=== PATIENT | male | born 1960 | race Caucasian/White ===

== ENCOUNTER 2017-05-14 09:02 | Inpatient (IN) ==
[2017-05-14] MEDS ORDERED: DILTIAZEM 50 MG/10 ML VIAL IV STA (09:30)
[2017-05-14] MEDS ORDERED: DILTIAZEM 50 MG/10 ML VIAL IV ONE (09:45)
[2017-05-14] MEDS ORDERED: DILTIAZEM 100 MG VIAL.ADD IV ONE (09:45)
[2017-05-14] MEDS ORDERED: SODIUM CHLORIDE 0.9% 100 ML IV ONE (09:47)
[2017-05-14] MEDS: DILTIAZEM INJ 100 MG in SODIUM CHLORIDE 0.9% 100 ML IV SCH (09:52)
[2017-05-14 09:57] LABS: Basophils # 0.1 10*3/uL (0.0-0.2); Basophils % 0.7 % (0.0-0.8); Eosinophils # 0.1 10*3/uL (0.0-0.87); Eosinophils % 0.8 % (0.00-10.9); Hematocrit 44.1 VOL% (42.0-52.0); Hemoglobin 15.7 GM/DL (14.0-18.0); Immature Granulocytes % 0.7 %; Immature Granulocytes Absolute 0.08 #; Lymphocytes # 1.2 10*3/uL (1.4-4.0); Mean Corpuscular HGB Conc 35.6 GM/DL (32-36); Mean Corpuscular Hemoglobin 33 PG (27-34); Mean Corpuscular Volume 91.7 FL (87-102); Mean Platelet Volume 10.6 FL (9.6-12.0); Monocytes # 0.9 10*3/uL (0.11-0.8); Monocytes % 7.6 % (1.7-12.7); Neutrophils # 9.3 10*3/uL (1.4-7.4); Neutrophils % 80.2 % (38.7-73.9); Platelet Count 222 T/CUMM (130-400); Red Blood Count 4.81 MC/CUMM (3.8-5.5); Red Cell Distribution Width 12.8 % (9.3-17.3); White Blood Count 11.6 T/CUMM (4-12)
[2017-05-14 10:10] LABS: INR 1.1; PT Patient Result 11.9 SECS; Partial Thromboplastin Time 29.2 SECS (0-40)
[2017-05-14 10:16] LABS: Alanine Aminotransferase 92 U/L (16-61); Albumin 3.7 G/DL (3.4-5.0); Alkaline Phosphatase 83 U/L (45-117); Aspartate Amino Transferase 55 U/L (0-37); Blood Urea Nitrogen 21 MG/DL (7-18); Calcium 8.9 MG/DL (8.5-10.1); Glucose 299 MG/DL (74-106); Osmolality,Calculated 275.7 MOS/KG (273-304); Potassium 4.2 MMOL/L (3.5-5.1); Sodium 131 MMOL/L (136-145); Troponin I Only < 0.015 NG/ML (0.00-0.045)
[2017-05-14 10:22] LABS: Free T4 (Free Thyroxine) 1.49 NG/DL (0.76-1.46); Thyroid Stimulating Hormone 1.31 uIU/ml (0.358-3.74)
--- NOTE | 2017-05-14 10:26 | XRay Report ---
XR chest 1V portable Indication: Shortness of breath Comparison: 16 October 2016 Findings: The heart and mediastinum are normal in size and configuration. The pulmonary vascularity is normal in caliber. No lung infiltrates, effusions, pneumothorax or other abnormality is demonstrated. Impression: No acute cardiopulmonary disease. PROCEDURE INTERPRETED AT [facility] DEPARTMENT OF RADIOLOGY Final Report Signed by: Dr. Florentin Vázquez
--- NOTE | 2017-05-14 10:26 | Order Completion Report ---
See report scanned to EMR
--- NOTE | 2017-05-14 11:04 | Emergency Department Note ---
Pantera Hernandez Gwan, am scribing for, and in the presence of, Wade Graves MD 09 :31. Star Hernandez Doug C, MD, personally performed the services described in this documentation, ascribed by Monique Mott in my presence, and it is both accurate and complete . Arrival - Arrival Chief Complaint: Shortness of Breath Stated Complaint: sob,chest pains, left leg swollen ED Nursing Triage Note: PT C/O SHORTNESS OF BREATH, CHEST HEAVINESS, AND EDEMA TO LEFT LEG SINCE YESTERDAY. PT STATES IF HE LIES DOWN IT FEELS LIKE SOMEONE IS SITTING ON HIS CHEST. Mode of Arrival: Ambulatory Limitations: No Limitations Source: Patient, Old Records Reviewed, RN Notes Reviewed Time Seen by Provider: 05/14/17 09:28 - History of Present Illness HPI Narrative: Patient is 57-year-old white male who comes to the emergency room with complaint of shortness of breath that started around 7 AM yesterday morning. Patient denies any chest pain with this but states he has had some swelling of his lower extremities. He tells me it seems that his shortness of breath is worse when he lied down and got better when he stood up and walked about. Patient states he had a little bit of pain at the onset of this but it subsided very quickly. Patient states she has noted swelling the lower extremities with has been increasing for the last 6 months. He does have a history of hypertension and diabetes but is never had any heart problems. Denies any neck , shoulder or arm discomfort with this. He denies any fever, chills or increased cough. Onset (ago): day(s) Consistency: constant Severity: moderate Allergies/Adverse Reactions: Allergies Allergy/AdvReac Type Severity Reaction Status Date / Time No Known Allergies Allergy Verified 05/14/17 09:15 Home Medications: Home Medications Medication Instructions Recorded Confirmed Type No Known Home Medications [No 05/14/17 05/14/17 History Known Home Medications] Review of System - Review of System 12 point system: reviewed and no additional remarkable complaints except as stated - Review of System Eyes: Absent: pain, other Head/Ears/Nose/Throat: Absent: earache, nasal drainage Respiratory: Present: other (shortness of breathe ). Absent: cough, wheezing Cardiovascular: Present: chest pain, palpitations Medical,Surgical,& Family Hx - Medical History Cardio: History of: Hypertension Endocrine: History of: Diabetes Mellitus (NIDDM) Renal: No history of: Renal Problems Gastrointestinal: No history of: Gastrointestinal Bleed, Liver Problems, Ulcerative Colitis, GI Problems - Surgical History Cardiac Surgeries: Sugical HX of: Cardiac Catheterization (negative heart cath) Abdominal Surgeries: Surgical HX of: Appendectomy - Family History Family History: Reports;: Family Diabetes (His brother) Denies;: Family Heart Disease - Social History Smoking Status: Never smoker Frequency of Alcohol Use: Occasionally Type of Drug Use: None Exam Vital Signs: Vital Signs Temperature 97.4 F L 05/14/17 09:13 Pulse Rate 153 H 05/14/17 09:13 Respiratory Rate 20 05/14/17 09:13 Blood Pressure 172/119 05/14/17 09:13 O2 Sat by Pulse Oximetry 96 05/14/17 09:13 - General General appearance: alert, in no apparent distress - Head Head exam: Present: atraumatic, normocephalic - Eye Eye exam: Present: normal appearance, PERRL, EOMI - ENT ENT exam: Present: normal oropharynx, mucous membranes moist, TM's normal bilaterally, normal external ear exam - Neck Neck exam: Present: normal inspection, full ROM, trachea midline. Absent: tenderness, thyromegaly - Chest Chest inspection: Present: normal inspection, symmetric chest wall rise. Absent : tenderness - Respiratory Respiratory exam: Present: normal lung sounds bilaterally. Absent: rales, respiratory distress - Cardiovascular Cardiovascular exam: Present: normal rhythm, tachycardia, normal heart sounds. Absent: murmur - Abdominal Exam Abdominal exam: Present: soft, normal bowel sounds. Absent: tenderness - Extremities Exam Extremities exam: Present: normal inspection, full ROM, pedal edema (2+). Absent: tenderness - Back Exam Back exam: Present: full ROM. Absent: tenderness - Neurological Exam Neurological exam: Present: alert, oriented X3, CN II-XII intact. Absent: motor sensory deficit - Psychiatric Psychiatric exam: Present: normal affect, normal mood - Skin Skin exam: Present: warm, dry, intact, normal color Course Course Narrative: Patient's clinical presentation, laboratory and electrocardiographic findings were discussed with Yusuf who is covering the hospitalist service. He will evaluate the patient here in the emergency room and evaluate for admission. Results - Labs CBC & BMP: 05/14/17 09:40 09/30/17 09:40 Lab Results: I have reviewed the patients labs Labs: Laboratory Tests 05/14/17 09:40 WBC 11.6 RBC 4.81 Hgb 15.7 Hct 44.1 Plt Count 222 Neut % (Auto) 80.2 H Lymph % (Auto) 10.0 L Neut # (Auto) 9.3 H Lymph # (Auto) 1.2 L Craig # (Auto) 0.9 H Laboratory Tests 05/14/17 09:29 INR 1.1 PT Patient/Control Mix 11.9 Circ Anticoag PTT 29.2 Laboratory Tests 05/14/17 09:40 Sodium 131 L Potassium 4.2 Chloride 97 L Carbon Dioxide 25 BUN 21 H Creatinine 1.00 BUN/Creatinine Ratio 21.00 H Glucose 299 H Total Bilirubin 1.20 H AST 55 H ALT 92 H Globulin 4.3 H Albumin/Globulin Ratio 0.8 L Laboratory Tests 05/14/17 09:40 Free T4 1.49 H TSH 3rd Generation 1.310 Laboratory Tests 05/14/17 09:40 D-Dimer, Quantitative 0.8 Laboratory Tests 05/14/17 09:40 B-Natriuretic Peptide 166 H - EKG EKG results: interpreted by ERMD EKG shows: tachycardia (Patient with atrial flutter in 2-1 conduction with a heart rate of 150 bpm.) - Diagnostic Findings Procedure: Chest x-ray: report reviewed by me (No acute cardiopulmonary disease. ) Disposition Clinical Impression: Atrial flutter Case discussed with: patient Disposition: Disch To Home/Self Care Condition: Stable Time of Disposition: 11:04
[2017-05-14] MEDS ORDERED: DEXTROSE 50% 25 GM/50 ML SYRINGE IV PRN (11:22)
[2017-05-14] MEDS ORDERED: DOCUSATE SODIUM 100 MG CAPSULE PO PRN (11:22)
[2017-05-14] MEDS ORDERED: GLUCAGON 1 MG VIAL IM PRN (11:22)
[2017-05-14] MEDS ORDERED: ONDANSETRON 4 MG/2 ML VIAL IV PRN (11:22)
[2017-05-14] MEDS ORDERED: ACETAMINOPHEN 325 MG TABLET PO PRN (11:22)
[2017-05-14] MEDS ORDERED: LABETALOL 20 MG/4 ML SYRINGE IV ONE ×2 (11:22→13:15)
[2017-05-14] MEDS ORDERED: SODIUM CHLORIDE 0.9% 1,000 ML IV SCH (11:30)
--- NOTE | 2017-05-14 11:50 | Hospitalist History & Physical ---
<Yusuf Weaver - Last Filed: 05/14/17 11:34> Assessment and Plan - Time spent with patient Time spent with patient: Greater than 30 minutes (1) Atrial flutter with RVR Status: Acute Assessment and plan: IV Cardizem started in ED. Continue Cardizem. Add metoprolol. Echocardiogram. Admit to CCU. Consult cardiology. Current Visit: Yes (2) Hypertension Status: Acute Assessment and plan: Poorly controlled. Metoprolol 25 mg BID and Spironolactone 25 mg BID. Labetatol 10 once. Current Visit: Yes (3) Diabetes mellitus Status: Acute Assessment and plan: Hemoglobin A1c. Accu-cheks ACHS. SSI per protocol. Current Visit: Yes History of Present Illness Chief complaint: shortness of breath History of present illness: Mr. Cota is a 57 year old white male with a past medical history significant for hypertension and diabetes who presented to the ED today with complaints of shortness of breath since yesterday. The patient reports the dyspnea is worse when lying down and on exertion. He also reports a mildly distended abdomen with intermittent lower extremity edema having onset 2 days ago. He tells me that his dyspnea and edema gets better with movement. On exam, the patient is resting comfortably and in no acute medical distress. He was found to be in atrial flutter with RVR per telemetry. He was given 15 mg of IV Cardizem in the ED and is currently on a Cardizem drip. Rate is better but still tachycardic at 110-120. Patient denies headache, chest pain, abdominal tenderness, nausea/ vomiting, diaphoresis, numbness or tingling. He further denies a history of cardiomyopathy but confirms a previous [facility] without intervention. He reports no PCP. Lab work is significant for: sodium 131, potassium 4.2, chloride 97, BUN 21, creatinine 1.00, serum glucose 299, AST 55, ALT 92, BNP 166. CXR shows mild pulm edema or failure. This case has been discussed with both Dr. Choi, ER physician, and Dr. Smith, admitting physician, and the patient will be admitted to the hospital medicine service for further evaluation and treatment. 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 Home medications will be reviewed and reconciled once available. Home Medications Medication Instructions Recorded Confirmed Type No Known Home Medications [No 05/14/17 05/14/17 History Known Home Medications] Allergies Allergy/AdvReac Type Severity Reaction Status Date / Time No Known Allergies Allergy Verified 05/14/17 09:15 Medical,Surgical,& Family Hx - Medical History Cardio: History of: Hypertension Endocrine: History of: Diabetes Mellitus (NIDDM) Renal: No history of: Renal Problems Gastrointestinal: No history of: Gastrointestinal Bleed, Liver Problems, Ulcerative Colitis, GI Problems - Surgical History Cardiac Surgeries: Sugical HX of: Cardiac Catheterization (negative heart cath) Abdominal Surgeries: Surgical HX of: Appendectomy - Family History Family History: Reports;: Family Diabetes (His brother) Denies;: Family Heart Disease - Social History Smoking Status: Never smoker Frequency of Alcohol Use: Occasionally Type of Drug Use: None Marital Status: Lives With:: Alone Functional capacity: independent ambulation 12 point system: reviewed and no additional remarkable complaints except as stated Exam - Constitutional Vitals: Period Temp Pulse Resp BP Sys/Sanches Pulse Ox Last 24 Hr 97.4 F-97.4 F 111-153 15-21 125-172/91-122 94-99 Exam: General appearance: obese, no acute distress - Head Head exam: Present: normocephalic, atraumatic - Eye Eye exam: Present: EOMI. Absent: conjunctival injection, nystagmus Pupils: Present: GAGE, normal accommodation - ENT ENT exam: Present: normal exam, normal external ear exam - Neck Neck exam: Present: normal inspection. Absent: lymphadenopathy, tenderness, thyromegaly - Respiratory Respiratory exam: Present: decreased breath sounds throughout. Absent: rhonchi , wheezes - Cardiovascular Cardiovascular exam: Present: irregularly irregular. Absent: carotid bruit, gallop, rubs - GI/Abdominal GI/Abdominal exam: Present: normal bowel sounds, moderately distended, nontender Absent: mass - Extremities Exam Extremities exam: Present: normal inspection, normal capillary refill, 2+-3+ pitting edema BLE. Absent: edema - Back Exam Back exam: Absent: CVA tenderness (L), CVA tenderness (R) - Neurological Exam Neurological exam: Present: alert, oriented X3, CN II-XII intact, reflexes normal - Psychiatric Psychiatric exam: Present: normal affect, normal mood - Skin Skin exam: Present: normal color, warm, dry Results - Labs CBC & BMP: 05/14/17 09:40 05/14/17 09:40 Lab Results: I have reviewed the past 24 hour labs - EKG EKG results: interpreted by JOHN (atrial flutter with RVR) - Diagnostic Findings Procedure: Chest x-ray: image reviewed by me, report reviewed by me <Nithin Smith - Last Filed: 05/14/17 13:07> Assessment and Plan - Time spent with patient Time spent with patient: Greater than 30 minutes (1) Hyponatremia Status: Acute Assessment and plan: sodium of 131. Patient appears fluid overloaded. Lasix given in the emergency department. Will monitor and repeat labs in a.m. Current Visit: Yes (2) Elevated LFTs Status: Acute Assessment and plan: Consider checking hepatitis panel. This is likely related to passive congestion of the liver related to patient's cardiac output and atrial fib/flutter with RVR. Continue to monitor and repeat labs in a.m. Consider GI consult if no improvement. Current Visit: Yes (3) Hyperbilirubinemia Status: Acute Current Visit: Yes (4) Atrial flutter Status: Acute Assessment and plan: Attempt to achieve rate control with Cardizem drip. One-time dose of labetalol ordered and oral metoprolol started. We will add weight-based Lovenox 1 mg/kg subcutaneously twice daily. Cardiology consult. Follow-up echo. Current Visit: Yes (5) Hypertension Status: Chronic Current Visit: Yes Qualifiers: Hypertension type: essential hypertension Qualified Code(s): I10 - Essential (primary) hypertension (6) Atrial flutter with RVR Status: Acute Current Visit: Yes (7) Diabetes mellitus Status: Acute Current Visit: Yes Qualifiers: Diabetes mellitus type: type 2 History of Present Illness History of present illness: Mr. Cota is a 57 year old male Exam - Constitutional Vitals: Period Temp Pulse Resp BP Sys/Sanches Pulse Ox Last 24 Hr 97.4 F-97.4 F 111-153 15-21 125-172/91-122 94-99 Results - Labs CBC & BMP: 05/14/17 09:40 05/14/17 09:40 Lab Results: I have reviewed the past 24 hour labs
[2017-05-14] MEDS ORDERED: LABETALOL 20 MG/4 ML SYRINGE IV STA (13:14)
[2017-05-14] MEDS: METOPROLOL TARTRATE 25 MG TABLET PO SCH ×2 (14:09→20:01)
[2017-05-14] MEDS: SPIRONOLACTONE 25 MG TABLET PO SCH ×2 (14:09→20:01)
[2017-05-14] MEDS: ENOXAPARIN 100 MG/ML SYRINGE SUBCUT SCH (14:10)
[2017-05-14] MEDS: FUROSEMIDE 40 MG/4 ML VIAL IV SCH (14:10)
[2017-05-14] MEDS ORDERED: ALUM/MAG/SIMETH/LIDO VISC 1:1 30 ML BOTTLE PO ONE (15:35)
[2017-05-14] MEDS ORDERED: PANTOPRAZOLE 40 MG VIAL IV ONE (15:35)
[2017-05-14] MEDS ORDERED: FAMOTIDINE 20 MG TABLET PO ONE (15:35)
[2017-05-14] MEDS: glyBURIDE 5 MG TABLET PO SCH (16:10)
[2017-05-14] MEDS: INSULIN LISPRO 100 UNIT/ML SUBCUT SCH ×3 (16:11→20:01)
--- NOTE | 2017-05-14 16:27 | Order Completion Report ---
See report scanned to EMR
[2017-05-14 16:29] LABS: Troponin I Only < 0.015 NG/ML (0.00-0.045)
[2017-05-14] MEDS: MORPHINE 2 MG/1 ML SYRINGE IV PRN (19:57)
[2017-05-14] MEDS: ASCORBIC ACID 500 MG TABLET PO SCH (20:04)
[2017-05-14 22:40] LABS: Troponin I Only < 0.015 NG/ML (0.00-0.045)
[2017-05-15] MEDS: ENOXAPARIN 100 MG/ML SYRINGE SUBCUT SCH (05:43)
[2017-05-15 05:47] LABS: Troponin I Only < 0.015 NG/ML (0.00-0.045)
[2017-05-15 05:51] LABS: Albumin 3.3 G/DL (3.4-5.0); Bilirubin,Total 1.6 MG/DL (0.2-1.0); Calcium 7.8 MG/DL (8.5-10.1); Magnesium 2.4 MG/DL (1.8-2.4); Osmolality,Calculated 282.5 MOS/KG (273-304); Potassium 5.8 MMOL/L (3.5-5.1); Risk Ratio 3.19; Thyroid Stimulating Hormone 1.1 uIU/ml (0.358-3.74); Total Protein 6.8 G/DL (6.4-8.3); VLDL CHOLESTEROL 17.2 MG/DL
[2017-05-15] MEDS: INSULIN LISPRO 100 UNIT/ML SUBCUT SCH ×4 (08:53→21:30)
[2017-05-15] MEDS: METOPROLOL TARTRATE 25 MG TABLET PO SCH ×2 (08:54→20:25)
[2017-05-15] MEDS: SPIRONOLACTONE 25 MG TABLET PO SCH (08:54)
[2017-05-15] MEDS: glyBURIDE 5 MG TABLET PO SCH ×2 (08:54→16:51)
[2017-05-15] MEDS: ASCORBIC ACID 500 MG TABLET PO SCH ×2 (08:55→20:25)
[2017-05-15] MEDS: PANTOPRAZOLE 40 MG TABLET PO SCH (08:55)
[2017-05-15] MEDS: FUROSEMIDE 40 MG/4 ML VIAL IV SCH (08:55)
--- NOTE | 2017-05-15 09:38 | Order Completion Report ---
See report scanned to EMR
[2017-05-15] MEDS ORDERED: SODIUM POLYSTYRENE SULFATE 15 GM/60 ML BOTTLE PO STA (09:43)
--- NOTE | 2017-05-15 09:53 | Hospitalist Progress Note ---
Assessment and Plan (1) Hyponatremia Status: Acute Assessment and plan: Minimal improvement with Lasix. Now with acute kidney injury. Will rehydrate with normal saline. Current Visit: Yes (2) Elevated LFTs Status: Acute Assessment and plan: Consider checking hepatitis panel. This is likely related to passive congestion of the liver related to patient's cardiac output and atrial fib/flutter with RVR. Continue to monitor and repeat labs in a.m. Consider GI consult if no improvement. Current Visit: Yes (3) Hyperbilirubinemia Status: Acute Current Visit: Yes (4) Atrial flutter Status: Acute Assessment and plan: Attempt to achieve rate control with Cardizem drip. One-time dose of labetalol ordered and oral metoprolol started. We will add weight-based Lovenox 1 mg/kg subcutaneously twice daily. Cardiology consult. Follow-up echo. Current Visit: Yes (5) Hypertension Status: Chronic Current Visit: Yes Qualifiers: Hypertension type: essential hypertension Qualified Code(s): I10 - Essential (primary) hypertension (6) Atrial flutter with RVR Status: Acute Assessment and plan: Heart rate controlled. Started on metoprolol. Cardiology consult pending Anticoagulated with Lovenox weight based Current Visit: Yes (7) Diabetes mellitus Status: Acute Assessment and plan: Hemoglobin A1c 11.3. Patient has not been on medications for several months. Start glyburide and add Lantus. Continue Accu-Cheks and sliding scale insulin. Current Visit: Yes Qualifiers: Diabetes mellitus type: type 2 Diabetes mellitus complication status: with hyperglycemia Diabetes mellitus supervisor long goods insulin use: without nursing home use Qualified Code(s): E11.65 - Type 2 diabetes mellitus with hyperglycemia (8) Hyperkalemia Status: Acute Assessment and plan: Kayexalate 15 g p.o. 1 Current Visit: Yes (9) Acute kidney injury Status: Acute Assessment and plan: Acute kidney injury with creatinine of 1.9 after Lasix and Aldactone. Will hold diuretic therapy and replenish with IV fluids. Current Visit: Yes Hospitalist: Subjective Interval history: Mr. Cota is a 57-year-old white male that was admitted through the emergency department yesterday with atrial flutter with rapid ventricular response and shortness of breath. His echocardiogram reveals an ejection fraction of 40-45% . He had lower extremity edema and was treated with Lasix and Aldactone. He was initially started on a Cardizem drip which has been weaned off and he has been transitioned to oral metoprolol 25 mg twice daily. He looks and feels better however his renal function has worsened with diuretic therapy. I have held his Lasix and Aldactone however he is already received his dose for this morning. Started him on low-dose IV fluids for 1 L. His hyponatremia persists. He is hyperkalemic today and a dose of Kayexalate was ordered. A bilateral lower extremity Doppler has been ordered to evaluate for DVT Exam - Constitutional Vitals: Period Temp Pulse Resp BP Sys/Sanches Pulse Ox Last 24 Hr 97.6 F-98.6 F 59-127 12-24 84-154/62-106 91-98 Exam: Constitutional System: No distress. No tremulousness. Head: Normocephalic, atraumatic. Ears, Nose and Throat System: No pain or tenderness. No epistaxis or discharge Eyes System: Pupils equal, round, and reactive. Extraocular muscles intact. Neck: Supple, without adenopathy, No jugular venous distention. No thyromegaly, neck mass, or prior surgery apparent. Respiratory System: Chest clear to auscultation. Cardiovascular System: Heart with irregular rate and rhythm. No murmur. GI System: Abdomen soft, nontender. Normo active bowel sounds present. Musculoskeletal System: limbs with bilateral pitting pedal edema. Full distal pulses. Normal capillary refill. Neurological System: No discernable sensory deficit. No aphasia Psychiatric System: Conversation is rational Results - Labs CBC & BMP: 05/14/17 09:40 05/15/17 04:06 Lab Results: I have reviewed the past 24 hour labs Quality Measures - Stroke Symptom Onset Unknown: No
[2017-05-15] MEDS: SODIUM CHLORIDE 0.9% 1,000 ML IV SCH ×2 (09:57→20:36)
[2017-05-15] MEDS: INSULIN GLARGINE 100 UNIT/ML SUBCUT SCH (09:57)
[2017-05-15] MEDS: DILTIAZEM INJ 100 MG in SODIUM CHLORIDE 0.9% 100 ML IV SCH (10:45)
--- NOTE | 2017-05-15 12:09 | Cardiology Consult Note ---
Assessment and Plan (1) Atrial flutter with RVR Status: Acute Assessment and plan: His rate was controlled with IV diltiazem. I am converting to oral medication. I am going to check an echocardiogram. I think the patient is going to need chronic anticoagulation and going to change him to Eliquis at this time. Depending on how he does clinical, cardioversion could be considered if he does not convert on his own. Current Visit: Yes (2) Dyspnea Status: Acute Current Visit: Yes (3) Non-compliant patient Status: Acute Current Visit: Yes (4) Acute kidney injury Status: Acute Assessment and plan: Patient had a significant rise in his creatinine since admission of unclear etiology. He does have diabetes which is poorly controlled which is likely a factor. We will monitor this for now. Current Visit: Yes (5) Diabetes mellitus Status: Acute Assessment and plan: Poorly controlled secondary to noncompliance. Current Visit: Yes Qualifiers: Diabetes mellitus type: type 2 Diabetes mellitus complication status: with kidney complications Diabetes mellitus skilled nursing insulin use: without terminal clerk use (6) Elevated LFTs Status: Acute Assessment and plan: The etiology of this is unclear if his LFTs bumped up more after arrival. We will monitor this for now. Current Visit: Yes (7) Hyperbilirubinemia Status: Acute Current Visit: Yes (8) Hyperkalemia Status: Acute Assessment and plan: This actually went up significantly after arrival. Will monitor this closely and adjust treatment as needed. Current Visit: Yes (9) Hyponatremia Status: Acute Current Visit: Yes (10) Hypertension Status: Chronic Assessment and plan: We are starting medication for his atrial flutter which will also benefit his hypertension. Current Visit: Yes Qualifiers: Hypertension type: essential hypertension Qualified Code(s): I10 - Essential (primary) hypertension History of Present Illness - Consult Narrative History of present illness: Mr. Cota is a 57 year old male who has no history of cardiac disease. He does have a history of hypertension and diabetes. Apparently he has been very noncompliant with his medical regimen and has been out of all of his medications for several months. It appears that he has dreadful blood sugar control as his A1c was 11.3. Essentially the patient came in complaining of increasing dyspnea for a day or 2. This was worse when he would lie down and improves when he would sit up. It was moderate with exertion as well. He denies any palpitations or syncope. He denies any angina. He has no previous history of cardiac disease. He came to the hospital for evaluation was discovered to be in atrial flutter with rapid ventricular ventricular response with a heart rate of around 150. Since getting to the hospital getting treatment his symptoms have improved. He denies any chest pain, fever, chills, nausea, vomiting, or gastrointestinal blood loss. At the time I was seeing him was essentially feeling back to normal. His heart rate was around 90 at the time I saw him. The patient's cardiac enzymes have all been negative. He does have a modest elevation of liver function tests and mild renal insufficiency with a creatinine of 1.9 today, although it was normal on admission. CC: Nithin Smith MD - Home Medications and Allergies Home Medications: Home Medications Medication Instructions Recorded Confirmed Type No Known Home Medications [No 05/14/17 05/14/17 History Known Home Medications] Allergies/Adverse Reactions: Allergies Allergy/AdvReac Type Severity Reaction Status Date / Time No Known Allergies Allergy Verified 05/14/17 09:15 12 point system: reviewed and no additional remarkable complaints except as stated Medical,Surgical,& Family Hx - Medical History Cardio: History of: Hypertension HEENT: History of: Eye Problem (CATARECT SURGERY ON BOTH EYES, RETINA DETACH) Endocrine: History of: Diabetes Mellitus (NIDDM) Respiratory: No history of: Respiratory Problems Renal: No history of: Renal Problems Gastrointestinal: History of: GERD No history of: Gastrointestinal Bleed, Liver Problems, Ulcerative Colitis, GI Problems Hematology: No history of: Blood Transfusion Reaction - Surgical History Cardiac Surgeries: Sugical HX of: Cardiac Catheterization (negative heart cath) Thoracic Surgeries: Patient denies;: Lobectomy Neurologic Surgeries: Patient denies: Neurologic Surgery Abdominal Surgeries: Surgical HX of: Appendectomy - Family History Family History: Reports;: Family Cancer (MOTHER AND FATHER), Family Diabetes ( His brother), Family Hypertension (SISTER AND BROTHER) Denies;: Family Heart Disease - Social History Smoking Status: Never smoker Frequency of Alcohol Use: Occasionally Type of Drug Use: None Physical Examination Vital Signs Temp Pulse Resp BP Pulse Ox 97.4 F L 153 H 20 172/119 96 05/14/17 09:13 05/14/17 09:13 05/14/17 09:13 05/14/17 09:13 05/14/17 09:13 Exam: General: Well-developed well-nourished and in no acute distress HEENT: Normocephalic, atraumatic Neck: Supple Neck, Midline Trachea, no JVD, no bruit Cardiac: Irregular Rhythm, No Murmur, no gallop, no rub Lungs: Grossly Normal Exam, Clear to Ascultation, No Wheeze, Rales, Rhonchi Neuro: Cranial Nerve 2-12 Intact, grossly normal Abdomen: Soft, Active Bowel Sounds, obese, no Masses, No Pulsations/Bruits Skin: Normal color, no rash Extremities: No Clubbing, No Cyanosis, No Edema, Normal Upper Extr. Pulses Musculoskeletal: No acute abnormality noted Psychiatric: The patient is alert and oriented and does not appear to be anxious or depressed. Result/EKG - Labs CBC & BMP: 05/14/17 09:40 05/15/17 04:06 Lab Results: I have reviewed the past 24 hour labs Labs: Laboratory Results - last 24 hr 05/14/17 05/14/17 05/14/17 15:54 15:56 18:58 Sodium Potassium Chloride Carbon Dioxide Anion Gap BUN Creatinine GFR Calculation BUN/Creatinine Ratio Glucose POC Glucose 225 H 295 H Hemoglobin A1c Calculated Osmolality Calcium Magnesium Total Bilirubin AST ALT Alkaline Phosphatase Total Creatine Kinase 140 CK-MB (CK-2) 2.0 Troponin I < 0.015 B-Natriuretic Peptide Total Protein Albumin Globulin Albumin/Globulin Ratio Triglycerides Cholesterol LDL Cholesterol VLDL Cholesterol HDL Cholesterol Heart Disease Risk Ratio TSH 3rd Generation 05/14/17 05/15/17 05/15/17 21:37 04:06 04:06 Sodium 132 L Potassium 5.8 H Chloride 98 Carbon Dioxide 23 Anion Gap 16.8 H BUN 38 H D Creatinine 1.90 H GFR Calculation 47 BUN/Creatinine Ratio 20.00 Glucose 280 H POC Glucose Hemoglobin A1c Calculated Osmolality 282.5 Calcium 7.8 L Magnesium 2.4 Total Bilirubin 1.60 H AST 208 H ALT 253 H Alkaline Phosphatase 85 Total Creatine Kinase 146 CK-MB (CK-2) 1.6 Troponin I < 0.015 B-Natriuretic Peptide 254 H Total Protein 6.8 Albumin 3.3 L Globulin 3.5 Albumin/Globulin Ratio 0.9 L Triglycerides 86 Cholesterol 115 LDL Cholesterol 73.0 VLDL Cholesterol 17.2 HDL Cholesterol 36 L Heart Disease Risk Ratio 3.19 TSH 3rd Generation 1.100 05/15/17 05/15/17 05/15/17 04:06 04:06 07:56 Sodium Potassium Chloride Carbon Dioxide Anion Gap BUN Creatinine GFR Calculation BUN/Creatinine Ratio Glucose POC Glucose 241 H Hemoglobin A1c 11.3 H Calculated Osmolality Calcium Magnesium Total Bilirubin AST ALT Alkaline Phosphatase Total Creatine Kinase 110 D CK-MB (CK-2) 1.6 Troponin I < 0.015 B-Natriuretic Peptide Total Protein Albumin Globulin Albumin/Globulin Ratio Triglycerides Cholesterol LDL Cholesterol VLDL Cholesterol HDL Cholesterol Heart Disease Risk Ratio [facility] 3rd Generation 05/15/17 11:25 Sodium Potassium Chloride Carbon Dioxide Anion Gap BUN Creatinine GFR Calculation BUN/Creatinine Ratio Glucose POC Glucose 335 H Hemoglobin A1c Calculated Osmolality Calcium Magnesium Total Bilirubin AST ALT Alkaline Phosphatase Total Creatine Kinase CK-MB (CK-2) Troponin I B-Natriuretic Peptide Total Protein Albumin Globulin Albumin/Globulin Ratio Triglycerides Cholesterol LDL Cholesterol VLDL Cholesterol HDL Cholesterol Heart Disease Risk Ratio TSH 3rd Generation - EKG EKG results: interpreted by ms Quality Measures - Stroke Symptom Onset Unknown: No
[2017-05-15] MEDS: DILTIAZEM CD 240 MG CAPSULE PO SCH (12:27)
[2017-05-15] MEDS: APIXABAN 5 MG TABLET PO SCH ×2 (12:28→20:25)
--- NOTE | 2017-05-15 14:44 | Ultrasound Report ---
Venous Doppler ultrasound bilateral lower extremities Indication: Shortness of breath, edema Comparison: None available Findings: No evidence of echogenic, noncompressible thrombus seen in the visualized veins of the extremities. Color Doppler venous waveform pattern is within normal limits. Impression: No evidence of deep venous thrombosis. Ultrasound images stored and captured. PROCEDURE INTERPRETED AT [facility] DEPARTMENT OF RADIOLOGY Final Report Signed by: Dr. Florentin Vázquez
--- NOTE | 2017-05-15 19:54 | Order Completion Report ---
See report scanned to EMR
[2017-05-15] MEDS: ZALEPLON 5 MG CAPSULE PO PRN (20:25)
[2017-05-15] MEDS: ATORVASTATIN 40 MG TABLET PO SCH (20:25)
[2017-05-15] MEDS: MORPHINE 2 MG/1 ML SYRINGE IV PRN (20:40)
[2017-05-16] MEDS: SODIUM CHLORIDE 0.9% 1,000 ML IV SCH ×2 (05:58→16:48)
[2017-05-16 06:21] LABS: Calcium 8.1 MG/DL (8.5-10.1); Magnesium 2.5 MG/DL (1.8-2.4); Osmolality,Calculated 285.2 MOS/KG (273-304); Potassium 4.5 MMOL/L (3.5-5.1)
[2017-05-16] MEDS: INSULIN GLARGINE 100 UNIT/ML SUBCUT SCH (08:56)
[2017-05-16] MEDS: INSULIN LISPRO 100 UNIT/ML SUBCUT SCH ×4 (08:57→21:20)
[2017-05-16] MEDS: DILTIAZEM CD 240 MG CAPSULE PO SCH (08:57)
[2017-05-16] MEDS: ASCORBIC ACID 500 MG TABLET PO SCH ×2 (08:58→21:03)
[2017-05-16] MEDS: METOPROLOL TARTRATE 25 MG TABLET PO SCH ×2 (08:59→21:02)
[2017-05-16] MEDS: APIXABAN 5 MG TABLET PO SCH ×2 (08:59→21:03)
[2017-05-16] MEDS: glyBURIDE 5 MG TABLET PO SCH (08:59)
[2017-05-16] MEDS: PANTOPRAZOLE 40 MG TABLET PO SCH (08:59)
--- NOTE | 2017-05-16 13:06 | Hospitalist Progress Note ---
Assessment and Plan - Time spent with patient Time spent with patient: Less than 30 minutes Hospitalist: Subjective Interval history: 05/16/17 ASSESSMENT AND PLAN: - hyponatremia: slight improved 134--from 132. Will continue to monitor -elevated LFTs: will repeat labs in a.m.; if no improvement may want to consider GI consult -Atrial flutter: continue to monitor, continue Diltiazem, Cardiology is following and appreciate assistance with care. -Hypertension: continue to monitor; continue current medications; better control at present -Diabetes: A1c was 11.3; patient has been non-compliant with medications for several months; Would like to change to Amaryl for coverage -acute kidney injury: increase Creatinine 2.10 from --1.90, LASIX is being held. will continue to monitor in A.M. labs Will discuss with Dr Dawkins for further recommendations with care. I had to type both plan and note on this page because it is not working correctly. 05/16/17 Mr Cota seen and chart reviewed. Maeve with Diabetic education in room talking with patient at time of exam. He is sitting up in chair this morning and is feeling a little better. He reports increased shortness of breath with ambulation or exertion. Reports chest tightness but denies chest pain. It was reported to med that patient's insurance will start in about 90 days, but at time of discharge please make sure the patient is sent home medications that are on the $4 dollar list such as Amaryl. Patient has been non-compliant with medications because he lost his insurance and was not able to afford medications. Exam - Constitutional Vitals: Period Temp Pulse Resp BP Sys/Sanches Pulse Ox Last 24 Hr 96 F-97.8 F 92-119 16-22 107-147/75-96 90-96 General appearance: no acute distress, over weight - Head Head exam: Present: normal inspection - Eye Eye exam: Present: EOMI Pupils: Present: GAGE - Neck Neck exam: Present: normal inspection. Absent: thyromegaly - Respiratory Respiratory exam: Present: wheezes (expiratory) - Cardiovascular Cardiovascular exam: Present: irregular rhythm - GI/Abdominal GI/Abdominal exam: Present: normal bowel sounds, soft. Absent: tenderness, rebound - Extremities Exam Extremities exam: Present: full ROM, edema (1+) - Neurological Exam Neurological exam: Present: alert, oriented X3, CN II-XII intact - Psychiatric Psychiatric exam: Present: normal affect, normal mood. Absent: agitated, anxious - Skin Skin exam: Present: normal color, warm, dry Results - Labs CBC & BMP: 05/14/17 09:40 05/16/17 05:31 Lab Results: I have reviewed the past 24 hour labs Quality Measures - Stroke Symptom Onset Unknown: No
[2017-05-16] MEDS: SIMETHICONE CHEW 125 MG TABLET PO PRN ×2 (15:39→18:11)
[2017-05-16] MEDS: GLIMEPIRIDE 4 MG TABLET PO SCH (16:27)
--- NOTE | 2017-05-16 19:26 | Cardiology Progress Note ---
Fer Hernandez Lesley, RIAN, am scribing for, and in the presence of, Merlin Segura MD 19:26. 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 Ambriz (new) Summary: Mr. Cota is a 57 year WM, with no history of cardiac disease. He does have a history of hypertension and diabetes. Apparently he has been out of medications for several months due to loss of insurance. Diabetes Mellitus uncontrolled, Hgb A1c 11.3. The patient presented with worsening dyspnea for a day or 2. This was worse when he would lie down and improves when he would sit up. It was moderate with exertion as well. He denies any palpitations or syncope. He denies any angina. He came to the hospital for evaluation was discovered to be in atrial flutter with rapid ventricular response, heart rate in the 150s. After Cardizem infusion, his heart rate is controlled in the 90s, continues to be in Aflutter. The patient was converted to oral meds for rate control. Cardiac enzymes have remained negative. He does have modest elevation of liver function tests, mild renal insufficiency with a creatinine of 1.9 today , although it was normal on admission. Echocardiogram reveals EF 40-45%, mild bilateral atrial enlargement, mild mitral regurgitation, mild tricuspid regurgitation. MAY 16, 2017: The patient continues to be monitored for a flutter, rate improved around 100- 110. Vital signs have remained stable. Continue to monitor chronic hypertension and uncontrolled diabetes. The patient continues to have significant shortness of breath, during the exam today he seemed dyspneic with conversation after taking a shower. He is on supplemental oxygen at 2 L, oxygen saturation 95%. Liver enzymes are trending upward, will recheck these tomorrow. ROS: no acute distress denies chest pain present dyspnea IMPRESSION AND PLAN: - AFLUTTER WITH RVR - typical atrial flutter, difficult rate control. Discussed risks and benefits of management options. Will plan for ablation during his hospital stay, likely Tuesday, if his comorbidities improve. He will need AQUILINO, continue anticoagulation with Eliquis. Increase metoprolol to 50 mg twice daily. - CHF -rate better controlled, continue diuresis. - Acute kidney injury, increasing LFTs. His ejection fraction was 45%, but does not appear to be hypoperfused currently. - Sleep evaluation, suspect NAS Exam (Progress Note) - Constitutional Vitals: Period Temp Pulse Resp BP Sys/Sanches Pulse Ox Last 24 Hr 96 F-97.8 F 92-119 16-22 107-147/75-96 90-96 Exam: General: Appears well with no apparent distress. Pleasant and cooperative. Appears comfortable. HEENT: PERRL, normocephalic, atraumatic. Mucous membranes moist. No jaundice noted. Conjunctiva moist and clear, sclerae anicteric. Neck: No JVD, no thyromegaly or lymphadenopathy noted. No carotid bruit appreciated. Cardiac: Regular rate and rhythm. No murmur rub or gallop. PMI is nondisplaced. Lungs: Clear to auscultation without accessory muscle use to assist the respiratory pattern. Oxygen in use via nasal cannula. Easily dyspneic with conversation. Abdomen: Soft, bowel sounds normoactive. Nontender and distended, tight. No abdominal bruit or thrill noted. No masses noted. Musculoskeletal: No fluid collection. Full range of motion is noted noted. Extremities: No clubbing, cyanosis noted. 2+ pitting edema to bilateral lower extremities. Upper extremity pulses 2+. Lower extremity pulses 2+. Capillary refill less than 3 seconds. Skin: Warm and dry. No unusual lesions or rashes. No skin breakdown appreciated. Neuro: Awake, alert and oriented 3. Moves all extremities well without hemiparesis or paralysis. No essential tremor is appreciated. Result/EKG - Labs CBC & BMP: 05/14/17 09:40 05/16/17 05:31 Lab Results: I have reviewed the past 24 hour labs Labs: Laboratory Results - last 24 hr 05/15/17 05/15/17 05/15/17 11:25 16:13 21:27 Sodium Potassium Chloride Carbon Dioxide Anion Gap BUN Creatinine GFR Calculation BUN/Creatinine Ratio Glucose POC Glucose 335 H 180 H 178 H Calculated Osmolality Calcium Magnesium 05/16/17 05/16/17 05/16/17 05:31 08:01 11:41 Sodium 134 L Potassium 4.5 Chloride 100 Carbon Dioxide 21 Anion Gap 17.5 H BUN 52 H Creatinine 2.10 H GFR Calculation 45 BUN/Creatinine Ratio 24.00 H Glucose 168 H POC Glucose 177 H 254 H Calculated Osmolality 285.2 Calcium 8.1 L Magnesium 2.5 H - Diagnostic Findings Procedure: Chest x-ray: report reviewed by me - EKG EKG results: interpreted by me (atrial flutter) Quality Measures - Stroke Symptom Onset Unknown: No Colton Hernandez Attila, MD, personally performed the services described in this documentation, ascribed by Sonali Monroe NP in my presence, and it is both accurate and complete .
[2017-05-16] MEDS: ATORVASTATIN 40 MG TABLET PO SCH (21:04)
[2017-05-17] MEDS: SODIUM CHLORIDE 0.9% 1,000 ML IV SCH ×3 (05:36→23:57)
[2017-05-17 06:46] LABS: Basophils # 0.1 10*3/uL (0.0-0.2); Basophils % 0.6 % (0.0-0.8); Eosinophils % 0.2 % (0.00-10.9); Hematocrit 47.4 VOL% (42.0-52.0); Hemoglobin 16.1 GM/DL (14.0-18.0); Immature Granulocytes % 0.5 %; Immature Granulocytes Absolute 0.07 #; Lymphocytes # 1.9 10*3/uL (1.4-4.0); Lymphocytes % 13.4 % (21.2-54.2); Mean Corpuscular Hemoglobin 32 PG (27-34); Mean Corpuscular Volume 94.6 FL (87-102); Mean Platelet Volume 11.2 FL (9.6-12.0); Monocytes # 1.4 10*3/uL (0.11-0.8); Monocytes % 9.8 % (1.7-12.7); Neutrophils # 10.6 10*3/uL (1.4-7.4); Neutrophils % 75.5 % (38.7-73.9); Platelet Count 281 T/CUMM (130-400); Red Blood Count 5.01 MC/CUMM (3.8-5.5); Red Cell Distribution Width 13.1 % (9.3-17.3)
[2017-05-17 07:11] LABS: Calcium 8.4 MG/DL (8.5-10.1); Magnesium 2.4 MG/DL (1.8-2.4); Potassium 4.8 MMOL/L (3.5-5.1)
[2017-05-17 07:14] LABS: Albumin 3.3 G/DL (3.4-5.0); Bilirubin,Total 1.6 MG/DL (0.2-1.0); Calcium 8.6 MG/DL (8.5-10.1); Osmolality,Calculated 284.1 MOS/KG (273-304); Potassium 4.8 MMOL/L (3.5-5.1); Total Protein 7.2 G/DL (6.4-8.3)
[2017-05-17] MEDS: INSULIN LISPRO 100 UNIT/ML SUBCUT SCH ×4 (08:50→21:37)
[2017-05-17] MEDS: ASCORBIC ACID 500 MG TABLET PO SCH ×2 (08:51→21:35)
[2017-05-17] MEDS: METOPROLOL TARTRATE 25 MG TABLET PO SCH ×2 (08:51→21:35)
[2017-05-17] MEDS: APIXABAN 5 MG TABLET PO SCH ×2 (08:51→21:35)
[2017-05-17] MEDS: GLIMEPIRIDE 4 MG TABLET PO SCH ×2 (08:51→17:26)
[2017-05-17] MEDS: PANTOPRAZOLE 40 MG TABLET PO SCH (08:51)
[2017-05-17] MEDS: DILTIAZEM CD 240 MG CAPSULE PO SCH (08:52)
[2017-05-17] MEDS ORDERED: SPIRONOLACTONE 25 MG TABLET PO SCH (09:00)
[2017-05-17] MEDS: INSULIN GLARGINE 100 UNIT/ML SUBCUT SCH (09:06)
--- NOTE | 2017-05-17 10:42 | Ultrasound Report ---
US venous doppler LE LT Indication: Left lower extremity swelling and pain. Comparison: No relevant comparison.. Technique: Grayscale, spectral, and color Doppler interrogation of the left lower extremity veins was performed. Augmentation and compression was performed. Findings: Grayscale, color Doppler, and pulsed Doppler evaluation of the veins of the left lower extremity demonstrates no evidence of deep venous thrombosis. IMPRESSION: No evidence of deep venous thrombosis in the left lower extremity. PROCEDURE INTERPRETED AT [facility] DEPARTMENT OF RADIOLOGY Final Report Signed by: Dr Darryl Bran
--- NOTE | 2017-05-17 10:44 | Ultrasound Report ---
Renal ultrasound Indication: Acute renal failure Comparison: None available Findings: Kidneys are normal in size and echogenicity. No hydronephrosis or nephrolithiasis is seen. The right renal length is 11.5 cm. The left renal length is 12.0 cm. No free fluid or other abnormality is seen. Impression: No evidence of abnormality demonstrated. Ultrasound images stored and captured. PROCEDURE INTERPRETED AT [facility] DEPARTMENT OF RADIOLOGY Final Report Signed by: Dr. Florentin Vázquez
--- NOTE | 2017-05-17 10:50 | Hospitalist Progress Note ---
Assessment and Plan - Time spent with patient Time spent with patient: Less than 30 minutes (1) Dyspnea Status: Acute Assessment and plan: 05/17/17 - Assessment & Plan: Elevated LFTs: (IMPROVING) down AST 104--< 208; down ALT 211--< 253; Alkaline Phosphatase up 107--->85. continue to monitor Atrial Flutter w/RVR: difficult rate control. Scheduled Ablation for Tuesday A.M. with Dr Segura CHF: continue diuresis (spironolactone) Hypertension: better control; continue current medications and monitor Acute Kidney Injury: (improving) creatinine down 1.80---< 2.10 Diabetes: better control; continue Amaryl 4mg BID (less expensive medication) - upon discharge patient will need to have less expensive medications due to previous non-compliance because he could not afford medications; vp customer service has seen patient Cardiology is following and greatly appreciate assistance with care Will Discuss with Dr Dawkins for further recommendations for care. 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 He is lying in bed watching TV and is notably short of breath with conversation on [place] oxygen. He recovers quickly once he stops talking and rest. He denies chest pain, nausea, vomiting, fever, chills, or cough. Lower extremities with 2+ edema, TEDs bilateral in use without any calf pain with examination. Cardiology is planning Scheduled Ablation in the A.M. with Dr Segura. Blood glucose remains controlled at present. creatinine, AST, ALT are improving. Exam - Constitutional Vitals: Period Temp Pulse Resp BP Sys/Sanches Pulse Ox Last 24 Hr 96.4 F-97.9 F 72-109 16-20 123-171/70-111 91-96 General appearance: mild distress, over weight - Head Head exam: Present: normal inspection - Eye Eye exam: Present: EOMI Pupils: Present: GAGE - Neck Neck exam: Present: normal inspection. Absent: thyromegaly - Respiratory Respiratory exam: Present: clear to auscultation bilaterally, other (easily becomes dyspneic with conversation) - Cardiovascular Cardiovascular exam: Present: regular rate and rhythm - GI/Abdominal GI/Abdominal exam: Present: normal bowel sounds, soft. Absent: tenderness, rebound - Extremities Exam Extremities exam: Present: normal inspection, full ROM, edema (2+ bilateral lower extremties) - Neurological Exam Neurological exam: Present: alert, oriented X3, CN II-XII intact - Psychiatric Psychiatric exam: Present: normal affect, normal mood. Absent: agitated, anxious - Skin Skin exam: Present: normal color, warm, dry Results - Labs CBC & BMP: 05/17/17 05:09 05/17/17 05:09 Lab Results: I have reviewed the past 24 hour labs - Impressions VENOUS DOPPLER: No evidence of deep vein thrombosis in the left lower extremity - Diagnostic Findings Procedure: Ultrasound: report reviewed by me (RENAL: no evidence of abnormality demonstrated) Quality Measures - Stroke Symptom Onset Unknown: No
[2017-05-17 11:56] LABS: Apearance,Urine CLEAR (Clear); Bacteria,Urine Occasional /HPF (Few); Bilirubin,Urine Negative (Negative); Blood, Urine Negative (Negative); Glucose,Urine (UA) Negative (Negative); Ketones,Urine 5 mg/dL (Negative); Mucus,Urine Occasional /LPF (Occasional); Nitrite,Urine Negative (Negative); Protein,Urine 30 MG/DL; RBC,Urine <1 /HPF (0-4); Urine Color Yellow (Yellow); Urine Specific Gravity 1.009 (1.001-1.035); WBC,Urine 1 /HPF (0-6)
--- NOTE | 2017-05-17 13:57 | Nephrology Consult Note ---
History of Present Illness Chief complaint: Pt admitted for SOB, aflutter with RVR. Referred for PENELOPE History of present illness: Mr. Cota is a 57 year old male with long hx of DM2, HTN. Reportedly recently ran out of meds due to cost. Presented with recumbent SOB. Aflutter with RVR now rate controlled. He appears very SOB but lungs actually sound clear. Creatinine around 1.0 on admit. Hypotensive for the first 24 hrs or so. Hyperkalemia and hyponatremia have resolved with approx 2L net positive IVFs since admission. He reports recent increase in his BLE edema. Denies F/C/N/V/D. UA reveals isosthenuria with pH 5.0, Trace ketones. U/S unremarkable. He reports nocturia almost every hour at night, drinks water all day as a habit. He admites to intermittency, urgency, post void dribbling and frequency. He denies straining to urinate. Creatinine increased to 1.9 yesterday and has decreased today to 1.8 for eGFR 54cc/min by CKD-EPI formula. FeUrea 39% consistent with intrinsic renal injury, most likely due to mild ATN with preserved acidification. Doubt accurate Is/Os as his admission weight was 91kg and charted as 111kg today, but up by 2L by length of stay Is/Os. Home Medications Medication Instructions Recorded Confirmed Type No Known Home Medications [No 05/14/17 05/14/17 History Known Home Medications] Allergies Allergy/AdvReac Type Severity Reaction Status Date / Time No Known Allergies Allergy Verified 05/14/17 09:15 Medical,Surgical,& Family Hx - Medical History Cardio: History of: Hypertension HEENT: History of: Eye Problem (CATARECT SURGERY ON BOTH EYES, RETINA DETACH) Endocrine: History of: Diabetes Mellitus (NIDDM) Respiratory: No history of: Respiratory Problems Renal: No history of: Renal Problems Gastrointestinal: History of: GERD No history of: Gastrointestinal Bleed, Liver Problems, Ulcerative Colitis, GI Problems Hematology: No history of: Blood Transfusion Reaction - Surgical History Cardiac Surgeries: Sugical HX of: Cardiac Catheterization (negative heart cath) Thoracic Surgeries: Patient denies;: Lobectomy Neurologic Surgeries: Patient denies: Neurologic Surgery Abdominal Surgeries: Surgical HX of: Appendectomy - Family History Family History: Reports;: Family Cancer (MOTHER AND FATHER), Family Diabetes ( His brother), Family Hypertension (SISTER AND BROTHER) Denies;: Family Heart Disease - Social History Smoking Status: Never smoker Frequency of Alcohol Use: Occasionally Type of Drug Use: None Exam - Vital Signs Vital signs: Period Temp Pulse Resp BP Sys/Sanches Pulse Ox Last 24 Hr 96.4 F-97.9 F 72-105 16-20 123-171/70-111 91-96 - General Appearance General appearance: well-developed, obese EENT: ATNC, PERRL, hearing intact, vision intact Neck: no JVD, no thyromegaly Respiratory: no kyphosis, clear Cardiology: no murmurs, no rub, edema (2+ to knees bilat) Gastrointestinal: normoactive bowel sounds, no tenderness Integumentary: no rash, warm and dry Neurologic: no focal deficit, no asterixis, alert and oriented x3 Musculoskeletal: no deformities, no erythema Psychiatric: mood/affect appropriate, cooperative Results - Labs CBC & BMP: 05/17/17 05:09 05/17/17 05:09 Assessment and Plan (1) Acute kidney injury Problem details: Most likely due to hypotensive/ischemic ATN, mild with preserved acidification. Already improving. No acute indication for renal replacement therapy at this time. Status: Acute Assessment and plan: Avoid nephrotoxins to include NSAIDs, aminoglycosides and IV contrast if possible. Renally dose all meds for eGFR 55cc/min. Current Visit: Yes (2) Hypertension Status: Chronic Current Visit: Yes Qualifiers: Hypertension type: essential hypertension Qualified Code(s): I10 - Essential (primary) hypertension (3) Diabetes mellitus Status: Acute Current Visit: Yes Qualifiers: Diabetes mellitus type: type 2 Diabetes mellitus complication status: with kidney complications Diabetes mellitus assisted insulin use: without assisted use (4) BPH (benign prostatic hyperplasia) Status: Acute Assessment and plan: Consider bynum placement. Start flomax 0.4mg po daily. Current Visit: Yes
[2017-05-17] MEDS: SIMETHICONE CHEW 125 MG TABLET PO PRN (15:11)
--- NOTE | 2017-05-17 15:41 | Sleep Medicine Consult ---
Assessment and Plan (1) Unspecified sleep apnea Status: Acute Assessment and plan: His symptoms certainly are quite concerning for sleep apnea. We will try to do HST on him. Thank you for this consult and the opportunity to participate in his care. Current Visit: Yes (2) Hypertension Status: Chronic Assessment and plan: The prevalence rate for obstructive sleep apnea patients with hypertension is 35 %. That rate can be as high as 80% in patients who require 4 or more medications for blood pressure control. Current Visit: Yes Qualifiers: Hypertension type: essential hypertension Qualified Code(s): I10 - Essential (primary) hypertension (3) Diabetes mellitus Status: Chronic Assessment and plan: The prevalence rate for obstructive sleep apnea in patients with type 2 diabetes can be as high as 86%. Those patients with moderate to severe obstructive sleep apnea are at a greater risk for diabetic nephropathy and neuropathy. Compliance with CPAP therapy for these patients can lead to improvement in glycemic control and improvement in insulin sensitivity. Current Visit: Yes Qualifiers: Diabetes mellitus type: type 2 Diabetes mellitus complication status: with kidney complications Diabetes mellitus jail insulin use: without parts counterman use History of Present Illness Chief complaint: Sleep apnea History of present illness: Mr. Cota is a 57 year old male admitted with shortness of breath and atrial flutter with RVR. He was admitted by the hospitalist service and seen by cardiology. Echocardiogram revealed biatrial enlargement with a decrease in EF of 40-45%. He did have mild tricuspid regurg. He was noted that he had a history of snoring and abnormal breathing during sleep. He would awaken from sleep short of breath. He does snore and does have significant issues with nocturia. He has significant problems with daytime fatigue and sleepiness. 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 He has a long history of type 2 diabetes and hypertension and is been out of medications for couple years related to lack of insurance. Home Medications Medication Instructions Recorded Confirmed Type No Known Home Medications [No 05/14/17 05/14/17 History Known Home Medications] Allergies Allergy/AdvReac Type Severity Reaction Status Date / Time No Known Allergies Allergy Verified 05/14/17 09:15 Review of systems: As noted in HPI, otherwise unremarkable. Exam (Pulmonay) H&P - Constitutional Vitals: Period Temp Pulse Resp BP Sys/Sanches Pulse Ox Last 24 Hr 96.4 F-97.9 F 72-105 16-20 123-171/70-111 91-96 Exam: He is alert and responsive. He does appear short of breath. Pupils equal round reactive to light and accommodation. Extraocular movements intact. Oropharynx with a class III Mallampati exam. Neck supple without adenopathy or thyromegaly. No supraclavicular adenopathy is noted. Chest with symmetrical breath sounds without focal wheeze or rhonchi. Cardiac exam reveals a regular rhythm without murmur or gallop. Abdomen soft nontender without palpable hepatosplenomegaly or mass. Extremities are without clubbing, cyanosis, or edema. Neurologically, he is grossly intact. He moves all extremities with good strength. Medical,Surgical,& Family Hx - Medical History Cardio: History of: Hypertension HEENT: History of: Eye Problem (CATARECT SURGERY ON BOTH EYES, RETINA DETACH) Endocrine: History of: Diabetes Mellitus (NIDDM) Respiratory: No history of: Respiratory Problems Renal: No history of: Renal Problems Gastrointestinal: History of: GERD No history of: Gastrointestinal Bleed, Liver Problems, Ulcerative Colitis, GI Problems Hematology: No history of: Blood Transfusion Reaction - Surgical History Cardiac Surgeries: Sugical HX of: Cardiac Catheterization (negative heart cath) Thoracic Surgeries: Patient denies;: Lobectomy Neurologic Surgeries: Patient denies: Neurologic Surgery Abdominal Surgeries: Surgical HX of: Appendectomy - Family History Family History: Reports;: Family Cancer (MOTHER AND FATHER), Family Diabetes ( His brother), Family Hypertension (SISTER AND BROTHER) Denies;: Family Heart Disease - Social History Smoking Status: Never smoker Frequency of Alcohol Use: Occasionally Type of Drug Use: None Results - Labs CBC & BMP: 05/17/17 05:09 05/17/17 05:09 Lab Results: I have reviewed the past 24 hour labs Labs: TSH within normal limits. Quality Measures - Stroke Symptom Onset Unknown: No
--- NOTE | 2017-05-17 17:15 | Order Completion Report ---
See report scanned to EMR
--- NOTE | 2017-05-17 18:26 | Cardiology Progress Note ---
Arben Hernandez Vanessa RN, am scribing for, and in the presence of, Merlin Segura MD 18 :26. Assessment and Plan - Time spent with patient Time spent with patient: Greater than 30 minutes (Assessment, planning, documentation, medication review) (1) Atrial flutter with RVR Status: Acute Assessment and plan: 57-year-old male, typical atrial flutter, RVR, difficult rate control. Elevated LFTs, PENELOPE/CKD. - AFLUTTER WITH RVR -continue anticoagulation. N.p.o. after midnight, we will proceed with AQUILINO, EP study/flutter ablation tomorrow - CHF -rate better controlled, continue diuresis. - Acute kidney injury, elev LFTs. His ejection fraction was 45%. These do not appear to be secondary to hypoperfusion or congestion. He is not septic. -Appreciate sleep input Current Visit: Yes (2) Elevated LFTs Status: Acute Assessment and plan: SEE PLAN OF CARE LISTED ABOVE. Current Visit: Yes (3) Diabetes mellitus Status: Chronic Assessment and plan: SEE PLAN OF CARE LISTED ABOVE. 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 Current Visit: Yes Qualifiers: Hypertension type: essential hypertension Qualified Code(s): I10 - Essential (primary) hypertension (5) Non-compliant patient Status: Chronic Assessment and plan: SEE PLAN OF CARE LISTED ABOVE. Current Visit: Yes (6) Acute kidney injury Problem details: Most likely due to hypotensive/ischemic ATN, mild with preserved acidification. Already improving. No acute indication for renal replacement therapy at this time. Status: Acute Assessment and plan: SEE PLAN OF CARE LISTED ABOVE. Current Visit: Yes (7) Hyperbilirubinemia Status: Acute Assessment and plan: SEE PLAN OF CARE LISTED ABOVE. 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 Cota, 57-year-old WM, PMHx hypertension, diabetes (poorly controlled, Hgb A1c 11.3), medical noncompliance. No known history of CAD, and he has never been a smoker. [facility] after presenting to the ED with shortness of breath, chest pain, lower extremity edema. Patient reported he ran out of his medications several months ago due to cost issues and loss of insurance. EKG showed atrial flutter with RVR 150s. No palpitations or syncope. Initially rate control with IV Cardizem and has been transitioned to PO Cardizem in addition to starting anticoagulation. LFTs elevated on admit and have since trended upward consecutively. PENELOPE noted after admission, contributed to ATN/hypotension. Initially hyperkalemic hyponatremic but improved now. Echocardiogram normal systolic function, LVEF 40-45%, mild biatrial enlargement, mild MR/TR. He is being gently diuresed for some mild volume overload r/t RVR with atrial flutter. May: Patient is sitting up in bedside chair this morning. Reports he had some difficulty sleeping overnight and says he had pain and swelling in left lower leg, slight improvement this morning. Does appear uncomfortable and is mildly dyspneic with conversation. Cont to have moderate exertional dyspnea. No chest pain. SBP 125-150 mmHg. Tele: atrial flutter, ventricular response 90s with intermittent short bursts 110s. Labs reviewed. Elevated WBC 14,000 today. Electrolytes within acceptable range. No significant change in creatinine, 1.8 BUN 52 today. AST 104 ALT 211. Lasix is on hold due to PENELOPE. Continue to monitor and treat patient for hypertension, diabetes, atrial flutter. These are currently stable. Tentatively planning for AQUILINO with EP study and ablation tomorrow. ROS: -Mild resting dyspnea, moderate exertional dyspnea -No chest pain or palpitations -No abd pain, N/V -LLE pain, slight swelling Exam (Progress Note) - Constitutional Vitals: Period Temp Pulse Resp BP Sys/Sanches Pulse Ox Last 24 Hr 96.4 F-97.9 F 72-105 16-20 123-171/70-111 91-96 Exam: General: Appears well with no apparent distress. Pleasant and cooperative. Appears comfortable. HEENT: PERRL, normocephalic, atraumatic. Mucous membranes moist. No jaundice noted. Conjunctiva moist and clear, sclerae anicteric. Neck: No JVD, no thyromegaly or lymphadenopathy noted. No carotid bruit appreciated. Cardiac: Regular rate and rhythm. No murmur rub or gallop. PMI is nondisplaced. Lungs: Clear to auscultation without accessory muscle use to assist the respiratory pattern. Oxygen in use via nasal cannula. Easily dyspneic with conversation. Abdomen: Soft, bowel sounds normoactive. Nontender and distended, tight. No abdominal bruit or thrill noted. No masses noted. Musculoskeletal: No fluid collection. Full range of motion is noted noted. Extremities: No clubbing, cyanosis noted. 2+ pitting edema to bilateral lower extremities. Upper extremity pulses 2+. Lower extremity pulses 2+. Capillary refill less than 3 seconds. Skin: Warm and dry. No unusual lesions or rashes. No skin breakdown appreciated. Neuro: Awake, alert and oriented 3. Moves all extremities well without hemiparesis or paralysis. No essential tremor is appreciated. Result/EKG - Labs CBC & BMP: 05/17/17 05:09 05/17/17 05:09 Lab Results: I have reviewed the past 24 hour labs Labs: Laboratory Results - last 24 hr 05/16/17 05/16/17 05/17/17 16:11 21:07 05:09 WBC RBC Hgb Hct MCV MCH MCHC RDW Plt Count MPV Neut % (Auto) Lymph % (Auto) [place] % (Auto) Eos % (Auto) Baso % (Auto) Neut # (Auto) Lymph # (Auto) [place] # (Auto) Eos # (Auto) Baso # (Auto) Immature Gran % Nucleated RBC % Immature Gran # Nucleated RBCs # Immature Plt Fraction Sodium 135 L Potassium 4.8 Chloride 100 Carbon Dioxide 21 Anion Gap 18.8 H BUN 53 H Creatinine 1.80 H GFR Calculation 54 BUN/Creatinine Ratio 29.00 H Glucose 114 H POC Glucose 200 H 172 H Calculated Osmolality 284.1 Calcium 8.6 Magnesium Total Bilirubin 1.60 H AST 104 H ALT 211 H Alkaline Phosphatase 107 Total Protein 7.2 Albumin 3.3 L Globulin 3.9 H Albumin/Globulin Ratio 0.8 L Urine Color Urine Appearance Urine pH Ur Specific [place] Urine Protein Urine Glucose (UA) Urine Ketones Urine Blood Urine Nitrate Urine Bilirubin Urine Urobilinogen Urine Leukocytes Urine RBC Urine WBC Urine Bacteria Urine Mucus Ur Culture Indicated? Urine Eosinophils Ur Random Creatinine U Random Total Protein Ur Random Urea Nitrogn 05/17/17 05/17/17 05/17/17 05:09 05:09 08:30 WBC 14.0 H RBC 5.01 Hgb 16.1 Hct 47.4 MCV 94.6 MCH 32 MCHC 34.0 RDW 13.1 Plt Count 281 D MPV 11.2 Neut % (Auto) 75.5 H Lymph % (Auto) 13.4 L [place] % (Auto) 9.8 Eos % (Auto) 0.2 Baso % (Auto) 0.6 Neut # (Auto) 10.6 H Lymph # (Auto) 1.9 [place] # (Auto) 1.4 H Eos # (Auto) 0.0 Baso # (Auto) 0.1 Immature Gran % 0.5 Nucleated RBC % 0.0 Immature Gran # 0.07 Nucleated RBCs # 0.00 Immature Plt Fraction 0.0 Sodium 136 Potassium 4.8 Chloride 101 Carbon Dioxide 23 Anion Gap 16.8 H BUN 52 H Creatinine 1.80 H GFR Calculation 54 BUN/Creatinine Ratio 28.00 H Glucose 112 H POC Glucose 106 Calculated Osmolality 286.0 Calcium 8.4 L Magnesium 2.4 Total Bilirubin AST ALT Alkaline Phosphatase Total Protein Albumin Globulin Albumin/Globulin Ratio Urine Color Urine Appearance Urine pH Ur Specific [place] Urine Protein Urine Glucose (UA) Urine Ketones Urine Blood Urine Nitrate Urine Bilirubin Urine Urobilinogen Urine Leukocytes Urine RBC Urine WBC Urine Bacteria Urine Mucus Ur Culture Indicated? Urine Eosinophils Ur Random Creatinine U Random Total Protein Ur Random Urea Nitrogn 05/17/17 05/17/17 05/17/17 10:00 11:45 11:45 WBC RBC Hgb Hct MCV MCH MCHC RDW Plt Count MPV Neut % (Auto) Lymph % (Auto) [place] % (Auto) Eos % (Auto) Baso % (Auto) Neut # (Auto) Lymph # (Auto) [place] # (Auto) Eos # (Auto) Baso # (Auto) Immature Gran % Nucleated RBC % Immature Gran # Nucleated RBCs # Immature Plt Fraction Sodium Potassium Chloride Carbon Dioxide Anion Gap BUN Creatinine GFR Calculation BUN/Creatinine Ratio Glucose POC Glucose Calculated Osmolality Calcium Magnesium Total Bilirubin AST ALT Alkaline Phosphatase Total Protein Albumin Globulin Albumin/Globulin Ratio Urine Color Urine Appearance Urine pH Ur Specific [place] Urine Protein Urine Glucose (UA) Urine Ketones Urine Blood Urine Nitrate Urine Bilirubin Urine Urobilinogen Urine Leukocytes Urine RBC Urine WBC Urine Bacteria Urine Mucus Ur Culture Indicated? Urine Eosinophils None seen Ur Random Creatinine 69 U Random Total Protein 32 Ur Random Urea Nitrogn 05/17/17 05/17/1705/17/17 11:45 11:45 12:05 WBC RBC Hgb Hct MCV MCH MCHC RDW Plt Count MPV Neut % (Auto) Lymph % (Auto) [place] % (Auto) Eos % (Auto) Baso % (Auto) Neut # (Auto) Lymph # (Auto) [place] # (Auto) Eos # (Auto) Baso # (Auto) Immature Gran % Nucleated RBC % Immature Gran # Nucleated RBCs # Immature Plt Fraction Sodium Potassium Chloride Carbon Dioxide Anion Gap BUN Creatinine GFR Calculation BUN/Creatinine Ratio Glucose POC Glucose 176 H Calculated Osmolality Calcium Magnesium Total Bilirubin AST ALT Alkaline Phosphatase Total Protein Albumin Globulin Albumin/Globulin Ratio Urine Color Yellow Urine Appearance Clear Urine pH 5.0 Ur Specific [place] 1.009 Urine Protein 30 Urine Glucose (UA) Negative Urine Ketones 5 Urine Blood Negative Urine Nitrate Negative Urine Bilirubin Negative Urine Urobilinogen 2.0 H Urine Leukocytes Negative Urine RBC <1 Urine WBC 1 Urine Bacteria Occasional Urine Mucus Occasional Ur Culture Indicated? Not indicated Urine Eosinophils Ur Random Creatinine U Random Total Protein Ur Random Urea Nitrogn 796 - Diagnostic Findings Procedure: Chest x-ray: image reviewed by me, report reviewed by me - EKG EKG results: interpreted by me, no acute changes (Typical atrial flutter 2:1) Quality Measures - Stroke Symptom Onset Unknown: No Colton Hernandez Attila, MD, personally performed the services described in this documentation, ascribed by Sydni Theodore RN in my presence, and it is both accurate and complete [id number] .
[2017-05-17] MEDS: ATORVASTATIN 40 MG TABLET PO SCH (21:35)
[2017-05-17] MEDS: TAMSULOSIN 0.4 MG CAPSULE PO SCH (21:35)
[2017-05-18 06:06] LABS: Basophils # 0.1 10*3/uL (0.0-0.2); Basophils % 0.4 % (0.0-0.8); Eosinophils % 0.2 % (0.00-10.9); Hematocrit 43.8 VOL% (42.0-52.0); Hemoglobin 15.2 GM/DL (14.0-18.0); Immature Granulocytes % 0.6 %; Immature Granulocytes Absolute 0.07 #; Lymphocytes # 1.4 10*3/uL (1.4-4.0); Lymphocytes % 12.3 % (21.2-54.2); Mean Corpuscular HGB Conc 34.7 GM/DL (32-36); Mean Corpuscular Hemoglobin 33 PG (27-34); Mean Corpuscular Volume 94.8 FL (87-102); Mean Platelet Volume 11.1 FL (9.6-12.0); Monocytes # 1.1 10*3/uL (0.11-0.8); Monocytes % 9.4 % (1.7-12.7); Neutrophils # 8.7 10*3/uL (1.4-7.4); Neutrophils % 77.1 % (38.7-73.9); Platelet Count 222 T/CUMM (130-400); Red Blood Count 4.62 MC/CUMM (3.8-5.5); Red Cell Distribution Width 13.4 % (9.3-17.3); White Blood Count 11.3 T/CUMM (4-12)
[2017-05-18 06:15] LABS: INR 1.2; PT Patient Result 12.7 SECS; Partial Thromboplastin Time 35.3 SECS (0-40)
[2017-05-18 07:14] LABS: Albumin 3.1 G/DL (3.4-5.0); Bilirubin,Direct 0.64 MG/DL (0.0-0.20); Bilirubin,Indirect 0.8 MG/DL (0.0-1.0); Bilirubin,Total 1.4 MG/DL (0.2-1.0); Magnesium 2.8 MG/DL (1.8-2.4); Potassium 4.5 MMOL/L (3.5-5.1); Total Protein 6.6 G/DL (6.4-8.3)
--- NOTE | 2017-05-18 07:22 | Order Completion Report ---
See report scanned to EMR
[2017-05-18] MEDS: GLIMEPIRIDE 4 MG TABLET PO SCH ×2 (08:30→17:25)
[2017-05-18] MEDS: INSULIN GLARGINE 100 UNIT/ML SUBCUT SCH (08:30)
--- NOTE | 2017-05-18 08:56 | Nephrology Progress Note ---
Nephrology - PN: Subj Interval history: Mr Cota appears less dyspneic this am. Had some mild orthostasis after first dose of flomax overnight. Less nocturia. Creatinine improved to 1.5 for eGFR 67cc/min. Mild ATN most likely due to hypotension/ischemia from A flutter with RVR with preserved acidification, improving. Scheduled for ablation today by Dr Segura. Exam (PN)-Nephrology - Vital Signs Vital signs: Period Temp Pulse Resp BP Sys/Sanches Pulse Ox Last 24 Hr 96.7 F-97.8 F 87-105 20-22 123-154/76-99 90-94 - General Appearance General appearance: well-developed, obese EENT: ATNC, PERRL, mucous membranes moist, hearing intact, vision intact Neck: no JVD, no thyromegaly Respiratory: no kyphosis, clear Cardiology: no murmurs, no rub, edema Gastrointestinal: normoactive bowel sounds, no tenderness Integumentary: no rash, warm and dry Neurologic: no focal deficit, no asterixis Musculoskeletal: no deformities, no erythema Psychiatric: mood/affect appropriate, cooperative - Lab 05/18/17 05:25 05/18/17 05:25 Most recent lab results Calcium 8.0 MG/DL (8.5-10.1) L 05/18/17 05:25 Magnesium 2.8 MG/DL (1.8-2.4) H 05/18/17 05:25 Assessment and Plan (1) BPH (benign prostatic hyperplasia) Status: Acute Assessment and plan: Continue flomax. Counseled that the orthostatic symptoms usually resolve after 1 -2 weeks on med. Avoid rapid change from supine to standing. May increase to max dose 0.8mg daily. Current Visit: Yes (2) Acute kidney injury Problem details: Most likely due to hypotensive/ischemic ATN, mild with preserved acidification. Continues to improve. eGFR 67cc/min Status: Acute Assessment and plan: Avoid nephrotoxins to include NSAIDs, aminoglycosides and IV contrast if possible. Renally dose all meds for normal renal function. Will sign off at this time. Please call for any questions or concerns. 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
[2017-05-18] MEDS: INSULIN LISPRO 100 UNIT/ML SUBCUT SCH ×4 (09:05→21:11)
[2017-05-18] MEDS ORDERED: HEPARIN/NACL 0.9% 2 UNITS/ML 500 ML IV ONE (09:53)
[2017-05-18] MEDS ORDERED: LIDOCAINE 1% 20 ML VIAL ONE (09:53)
[2017-05-18] MEDS ORDERED: ISOPROTERENOL 1 MG/5 ML VIAL IV ONE (09:54)
[2017-05-18] MEDS ORDERED: DEXTROSE 50% 25 GM/50 ML VIAL IV PRN (11:00)
[2017-05-18 11:02] LABS: Amorphous Crystals,Urine Moderate /HPF (Few); Apearance,Urine Slightly Hazy (Clear); Bacteria,Urine Occasional /HPF (Few); Bilirubin,Urine Negative (Negative); Blood, Urine Negative (Negative); Glucose,Urine (UA) Negative (Negative); Ketones,Urine 5 mg/dL (Negative); Mucus,Urine Occasional /LPF (Occasional); Nitrite,Urine Negative (Negative); Protein,Urine Negative; Urine Color Yellow (Yellow); Urine Specific Gravity 1.008 (1.001-1.035); WBC,Urine 2 /HPF (0-6)
[2017-05-18] MEDS ORDERED: HEPARIN/NACL 0.9% 2 UNITS/ML 1,000 ML IV ONE (11:07)
[2017-05-18] MEDS ORDERED: ADENOSINE 6 MG/2 ML VIAL ONE (11:38)
[2017-05-18] MEDS: SODIUM CHLORIDE 0.9% 1,000 ML IV SCH (11:50)
[2017-05-18] MEDS ORDERED: ASPIRIN EC 325 MG TABLET PO ONE (12:03)
--- NOTE | 2017-05-18 12:18 | Electrophysiology Report ---
Date of Procedure:: 05/18/17 Pre-op diagnosis: Atrial flutter Post-op diagnosis: same Procedure: PROCEDURAL SUMMARY EP study with ablation of typical atrial flutter (cavotricuspid isthmus linear lesion). Successful procedure, no complications. PLAN Bed rest for 4 hours. ASA 325 mg now, then 81 mg qd for 30 days Continue Eliquis 5 mg bid DIAGNOSES Persistent atrial flutter PROCEDURE REPORT A timeout was performed before the procedure. Anesthesia General anesthesia was provided by the anesthesiology service. AQUILINO A AQUILINO was performed to rule out intracardiac thrombi. See report separately. Briefly, no thrombi were identified Anticoagulation Iv. heparin 5000U was administered before the ablation. He was anticoagulated with Eliquis. Access The Seldinger technique was performed utilizing a 21 gauge micropuncture needle and 0.[address] the following sheaths. RFV: 8 Fr - -Ablation catheter: Try The [employer] bidirectional RA, His, RV recording, pacing and ablation. RFV: 8 Fr - -Decapolar deflectable CS catheter - CS recording and pacing RFV: 5 Fr - -central venous access Electrophysiologic Study - baseline Baseline ECG: typical atrial flutter, R 506 ms, QRS 80 ms, QT 361 ms. No preexcitation. The catheters were introduced under electroanatomical guidance. A 3D fast anatomical map of the right atrium was constructed with CARTO. The CS and His positions were marked. Atrial flutter, cycle length 226 ms, [id number] activation sequence on the CS. HV 35 ms during flutter. Entrainment from proximal CS: PPI 200, TCL 230 ms. Entrainment from distal CS: PPI 288, TCL 232 ms. The arrhythmia mechanism was concluded as sustained typical atrial flutter. Ablation CTI lesion, EP study during drug infusion Using electrical and CARTO 3D guidance, lesions were delivered in the caval tricuspid isthmus region, with 40 W energy, during atrial flutter. The flutter broke during ablation. Conduction was still noted across the CTI, further lesions were delivered, until bidirectional CTI block was noted. Proximal CS to lower lateral atrial delay 160 ms. Lower lateral atrial to proximal CS delay 150 ms. During proximal CS pacing, 12 mg of IV adenosine was injected. Transient AV block was observed, without change in atrial activation sequence or CTI block. During lateral low atrial pacing, 12 mg of IV adenosine was injected. Transient AV block was observed, without change in atrial activation sequence or CTI block. The transverse CTI conduction recovered during the observation. Further lesions were delivered, until persistent bidirectional block was achieved. No recurrence of conduction was noted during 20 minutes of observation Follow up EP study Proximal CS to lateral low atrial delay 160 ms,lateral low atrial to proximal CS delay 150 ms. VA Wenckebach 320 ms. Retrograde conduction decremental, concentric. VERP 600/310. AV Wenckebach 340 ms. Anterograde conduction decremental, concentric. AERP 600/280. No AH jump. AH 129, Hb 46 ms. No arrhythmia inducible with single atrial or ventricular programmed extra estimation, or burst atrial extra stimulation, down to cycle length of 200 ms. End of the procedure The catheters were removed and the sheaths were pulled. Manual compression was applied until hemostasis was achieved. There were no complications. PROCEDURE(S) 1. Comprehensive electrophysiologic evaluation including insertion and repositioning of multiple electrode catheters with induction or attempted induction of an arrhythmia with right atrial pacing and recording, right ventricular pacing and recording (when necessary), His bundle recording (when necessary) with intracardiac catheter ablation of arrhythmogenic focus; with treatment of supraventricular tachycardia by ablation of fast or slow atrioventricular pathway, accessory atrioventricular connection, cavo-tricuspid isthmus or other single atrial focus or source of atrial re-entry 2. Programmed stimulation and pacing after intravenous drug infusion 3. Intracardiac electrophysiologic three-dimensional mapping 4. AQUILINO Anesthesia: general Surgeon / Physician: Merlin Segura Clarification Operator: other (Jose) Estimated blood loss: minimal Specimens: none sent Condition: stable Disposition: floor
--- NOTE | 2017-05-18 13:04 | Hospitalist Progress Note ---
Assessment and Plan - Time spent with patient Time spent with patient: Less than 30 minutes (1) Dyspnea Status: Acute Assessment and plan: 05/18/17 - Assessment & Plan: Atrial flutter/fibrillation: s/p Ablation today 05/18/17 Elevated LFTs: down AST 63--<104. ALT down 158--<211. Alkaline Phosphatase - normal 104 CHF: continue Spironolactone (BNP 448) HTN: better control - continue current medications, continue to monitor Acute Kidney Injury: improving down 1.50--<1.80 Diabetes: better glucose control (141) continue Amaryl and accu checks Cardiology is following and will continue to follow recommendations with care Will discuss with Dr Dawkins for further recommendations - no changes made at this time Will repeat a.m. labs 05/17/17 - Assessment & Plan: Elevated LFTs: (IMPROVING) down AST 104--< 208; down ALT 211--< 253; Alkaline Phosphatase up 107--->85. continue to monitor Atrial Flutter w/RVR: difficult rate control. Scheduled Ablation for Tuesday A.M. with Dr Segura CHF: continue diuresis (spironolactone) Hypertension: better control; continue current medications and monitor Acute Kidney Injury: (improving) creatinine down 1.80---< 2.10 Diabetes: better control; continue Amaryl 4mg BID (less expensive medication) - upon discharge patient will need to have less expensive medications due to previous non-compliance because he could not afford medications; foreign exchange services manager has seen patient Cardiology is following and greatly appreciate assistance with care Will Discuss with Dr Dawkins for further recommendations for care. Current Visit: Yes (2) Acute kidney injury Problem details: Most likely due to hypotensive/ischemic ATN, mild with preserved acidification. Continues to improve. eGFR 67cc/min Status: Acute Current Visit: Yes (3) Diabetes mellitus Status: Chronic Current Visit: Yes Qualifiers: Diabetes mellitus type: type 2 Diabetes mellitus complication status: with kidney complications Diabetes mellitus long term care administrator insulin use: without long term care administrator use (4) Elevated LFTs Status: Acute Current Visit: Yes (5) Non-compliant patient Status: Chronic Current Visit: Yes (6) Hypertension Status: Chronic Current Visit: Yes Qualifiers: Hypertension type: essential hypertension Qualified Code(s): I10 - Essential (primary) hypertension Hospitalist: Subjective Interval history: 10:56 - Patient not in room , gone to have scheduled Ablation related to afib/ aflutter. 12:15 - Patient still not in room. 14:30 - patient in room, sleepy but easily awakened. He denies chest pain or discomfort at present. He states he is feeling a little better. Patient is experiencing some dyspnea with conversation but less severe than yesterday. Exam - Constitutional Vitals: Period Temp Pulse Resp BP Sys/Sanches Pulse Ox Last 24 Hr 96.7 F-97.6 F 87-99 20-22 128-154/87-99 90-94 General appearance: no acute distress, over weight - Head Head exam: Present: normal inspection - Eye Eye exam: Present: EOMI Pupils: Present: GAGE - Neck Neck exam: Present: normal inspection. Absent: thyromegaly - Respiratory Respiratory exam: Present: clear to auscultation bilaterally, other (o2 Nasal Cannula in use). Absent: rhonchi, stridor, wheezes - Cardiovascular Cardiovascular exam: Present: regular rate and rhythm - GI/Abdominal GI/Abdominal exam: Present: normal bowel sounds, soft. Absent: tenderness, rebound - Extremities Exam Extremities exam: Present: normal inspection, full ROM, edema (1+ edema) - Neurological Exam Neurological exam: Present: alert, oriented X3 - Psychiatric Psychiatric exam: Present: normal affect, normal mood. Absent: agitated, anxious - Skin Skin exam: Present: normal color, warm, dry Results - Labs CBC & BMP: 05/18/17 05:25 05/18/17 05:25 Lab Results: I have reviewed the past 24 hour labs - Impressions s/p ablation scheduled procedure with Dr Segura Quality Measures - Stroke Symptom Onset Unknown: No
[2017-05-18] MEDS ORDERED: SEVOFLURANE 1 UNIT/15 MINUTE INH ONE (13:45)
[2017-05-18] MEDS ORDERED: PROPOFOL 200 MG/20 ML VIAL IV ONE (13:45)
[2017-05-18] MEDS ORDERED: MIDAZOLAM 2 MG/2 ML VIAL ONE (13:45)
[2017-05-18] MEDS ORDERED: PHENYLEPHRINE DRIP 20 MG/250 ML PREMIX IV ONE (13:45)
[2017-05-18] MEDS ORDERED: HEPARIN 10,000 UNIT/10 ML VIAL ONE (13:45)
[2017-05-18] MEDS ORDERED: NEOSTIGMINE 10 MG/10 ML VIAL ONE (13:46)
[2017-05-18] MEDS ORDERED: LACTATED RINGERS 1,000 ML IV ONE (13:46)
[2017-05-18] MEDS ORDERED: ROCURONIUM 100 MG/10 ML VIAL IV ONE (13:46)
[2017-05-18] MEDS ORDERED: GLYCOPYRROLATE 0.4 MG/2 ML VIAL ONE (13:46)
[2017-05-18] MEDS ORDERED: fentaNYL 100 MCG/2 ML VIAL ONE (13:46)
[2017-05-18] MEDS: METOPROLOL TARTRATE 25 MG TABLET PO SCH (14:44)
[2017-05-18] MEDS: ASCORBIC ACID 500 MG TABLET PO SCH ×2 (14:45→21:11)
[2017-05-18] MEDS: APIXABAN 5 MG TABLET PO SCH ×2 (14:45→21:11)
[2017-05-18] MEDS: DILTIAZEM CD 240 MG CAPSULE PO SCH (14:45)
[2017-05-18] MEDS: PANTOPRAZOLE 40 MG TABLET PO SCH (14:45)
--- NOTE | 2017-05-18 15:02 | Order Completion Report ---
See report scanned to EMR
--- NOTE | 2017-05-18 19:07 | Sleep Medicine Progress Note ---
Assessment and Plan (1) Unspecified sleep apnea Status: Acute Assessment and plan: Patient had negative HST evaluation will be set up for outpatient sleep study and follow-up. Thank you for the consult. Current Visit: Yes (2) Hypertension Status: Chronic Current Visit: Yes Qualifiers: Hypertension type: essential hypertension Qualified Code(s): I10 - Essential (primary) hypertension (3) Diabetes mellitus Status: Chronic Current Visit: Yes Qualifiers: Diabetes mellitus type: type 2 Diabetes mellitus complication status: with kidney complications Diabetes mellitus intermission coordinator insulin use: without intermission coordinator use Sleep Medicine Subjective Interval history: Patient did undergo home sleep testing last night but it was negative for sleep apnea. It was certainly suggestive of the possibility of sleep apnea with snoring. This study was done on supplemental oxygen which could impact its outcome. Sleep apnea is strongly suspected in this patient and given our suspicion, he needs outpatient polysomnography after discharge. We will set him up for outpatient sleep study and sleep clinic follow-up. Exam (Progress Note) - Constitutional Vitals: Period Temp Pulse Resp BP Sys/Sanches Pulse Ox Last 24 Hr 96.7 F-97.6 F 87-99 20-22 126-143/75-99 90-94 Exam: Patient appears much better today. Breathing comfortably and in no acute distress. He is alert and responsive. Results - Labs CBC & BMP: 05/18/17 05:25 05/18/17 05:25 Lab Results: I have reviewed the past 24 hour labs
--- NOTE | 2017-05-18 20:05 | Order Completion Report ---
See report scanned to EMR
[2017-05-18] MEDS ORDERED: FUROSEMIDE 40 MG/4 ML VIAL IV SCH (21:00)
[2017-05-18] MEDS: TAMSULOSIN 0.4 MG CAPSULE PO SCH (21:10)
[2017-05-18] MEDS: ATORVASTATIN 40 MG TABLET PO SCH (21:11)
[2017-05-18] MEDS: METOPROLOL TARTRATE 100 MG TABLET PO SCH (21:11)
[2017-05-19 04:22] LABS: Basophils # 0.1 10*3/uL (0.0-0.2); Basophils % 0.5 % (0.0-0.8); Eosinophils % 0.3 % (0.00-10.9); Hematocrit 44.7 VOL% (42.0-52.0); Hemoglobin 14.8 GM/DL (14.0-18.0); Immature Granulocytes % 0.4 %; Immature Granulocytes Absolute 0.05 #; Lymphocytes % 7.5 % (21.2-54.2); Mean Corpuscular HGB Conc 33.1 GM/DL (32-36); Mean Corpuscular Hemoglobin 32 PG (27-34); Mean Corpuscular Volume 97.2 FL (87-102); Mean Platelet Volume 10.8 FL (9.6-12.0); Monocytes # 1.5 10*3/uL (0.11-0.8); Monocytes % 11.2 % (1.7-12.7); Neutrophils # 10.6 10*3/uL (1.4-7.4); Neutrophils % 80.1 % (38.7-73.9); Platelet Count 242 T/CUMM (130-400); Red Cell Distribution Width 13.5 % (9.3-17.3); White Blood Count 13.3 T/CUMM (4-12)
[2017-05-19 04:51] LABS: Calcium 8.6 MG/DL (8.5-10.1); Magnesium 2.6 MG/DL (1.8-2.4); Osmolality,Calculated 288.3 MOS/KG (273-304); Potassium 4.1 MMOL/L (3.5-5.1)
--- NOTE | 2017-05-19 07:54 | Anesthesia Post-Op ---
Anesthesia Post OP - Post Ansesthetic Evaluation Patient seen in post op: Yes Resp: other (Less SOB post proceedure) CV: within normal limits Mental: within normal limits Temp: within normal limits Wulf-Mu-Gafpgiima: within normal limits Nausea and Vomiting: within normal limits Pain: within normal limits
[2017-05-19] MEDS: INSULIN LISPRO 100 UNIT/ML SUBCUT SCH ×4 (08:37→21:05)
[2017-05-19] MEDS: APIXABAN 5 MG TABLET PO SCH ×2 (08:39→21:05)
[2017-05-19] MEDS: PANTOPRAZOLE 40 MG TABLET PO SCH (08:39)
[2017-05-19] MEDS: ASPIRIN EC 81 MG TABLET PO SCH (08:39)
[2017-05-19] MEDS: ASCORBIC ACID 500 MG TABLET PO SCH ×2 (08:39→21:04)
[2017-05-19] MEDS: METOPROLOL TARTRATE 100 MG TABLET PO SCH ×2 (08:39→21:04)
[2017-05-19] MEDS: INSULIN GLARGINE 100 UNIT/ML SUBCUT SCH (08:40)
[2017-05-19] MEDS: GLIMEPIRIDE 4 MG TABLET PO SCH ×2 (08:40→17:07)
[2017-05-19] MEDS ORDERED: SODIUM CHLORIDE 0.65% NASAL SPRAY 45 ML BOTTLE BOTH NARES PRN (11:00)
--- NOTE | 2017-05-19 11:31 | Hospitalist Progress Note ---
Assessment and Plan - Time spent with patient Time spent with patient: Less than 30 minutes (1) Dyspnea Status: Acute Assessment and plan: 05/19/17 - ASSESSMENT & PLAN: -Atrial Flutter - S/P Ablation post op day x1 - some improvement in breathing noted but still having conversation associated dyspnea -Elevated LFTs: improving - will repeat LFTs in a.m. -CHF- improving BNP - continue Spironolactone -Hypertension - better control - continue current medications -Acute Kidney Injury - improving - creatinine down 1.30--1.50 -Diabetes - continue Amaryl and accu checks -repeat a.m labs -Cardiology is following and will continue to follow their recommendations -Further recommendations of care to follow per Dr Dawkins 05/18/17 - Assessment & Plan: Atrial flutter/fibrillation: s/p Ablation today 05/18/17 Elevated LFTs: down AST 63--<104. ALT down 158--<211. Alkaline Phosphatase - normal 104 CHF: continue Spironolactone (BNP 448) HTN: better control - continue current medications, continue to monitor Acute Kidney Injury: improving down 1.50--<1.80 Diabetes: better glucose control (141) continue Amaryl and accu checks Cardiology is following and will continue to follow recommendations with care Will discuss with Dr Dawkins for further recommendations - no changes made at this time Will repeat a.m. labs 05/17/17 - Assessment & Plan: Elevated LFTs: (IMPROVING) down AST 104--< 208; down ALT 211--< 253; Alkaline Phosphatase up 107--->85. continue to monitor Atrial Flutter w/RVR: difficult rate control. Scheduled Ablation for Tuesday A.M. with Dr Segura CHF: continue diuresis (spironolactone) Hypertension: better control; continue current medications and monitor Acute Kidney Injury: (improving) creatinine down 1.80---< 2.10 Diabetes: better control; continue Amaryl 4mg BID (less expensive medication) - upon discharge patient will need to have less expensive medications due to previous non-compliance because he could not afford medications; educator senior clinical has seen patient Cardiology is following and greatly appreciate assistance with care Will Discuss with Dr Dawkins for further recommendations for care. Current Visit: Yes (2) Acute kidney injury Problem details: Most likely due to hypotensive/ischemic ATN, mild with preserved acidification. Continues to improve. eGFR 67cc/min Status: Acute Current Visit: Yes (3) Diabetes mellitus Status: Chronic Current Visit: Yes Qualifiers: Diabetes mellitus type: type 2 Diabetes mellitus complication status: with kidney complications Diabetes mellitus senior living insulin use: without superintendent terminal use (4) Elevated LFTs Status: Acute Current Visit: Yes (5) Non-compliant patient Status: Chronic Current Visit: Yes (6) Hypertension Status: Chronic Current Visit: Yes Qualifiers: Hypertension type: essential hypertension Qualified Code(s): I10 - Essential (primary) hypertension Hospitalist: Subjective Interval history: Mr Cota seen and chart reviewed. He is sitting up in chair talking on phone with insurance company, trying to establish insurance coverage. I asked outsole caser to try to assist him if possible because the company was asking him questions that he needed further assistance with. He continues to be short of breath with conversation but appears to be some better compared to previous exams. He denies chest pain, fever or chills. He is s/p Ablation on yesterday , recovery went well. Exam - Constitutional Vitals: Period Temp Pulse Resp BP Sys/Sanches Pulse Ox Last 24 Hr 96.2 F-97.6 F 92-108 16-22 126-188/75-96 90-93 General appearance: no acute distress, over weight - Head Head exam: Present: normal inspection - Eye Eye exam: Present: EOMI Pupils: Present: GAGE - Neck Neck exam: Present: normal inspection. Absent: thyromegaly - Respiratory Respiratory exam: Present: clear to auscultation bilaterally - Cardiovascular Cardiovascular exam: Present: regular rate and rhythm - GI/Abdominal GI/Abdominal exam: Present: normal bowel sounds, soft. Absent: tenderness, rebound - Extremities Exam Extremities exam: Present: normal inspection, full ROM, edema (trace-1+: bilateral lower extremities) - Neurological Exam Neurological exam: Present: alert, oriented X3, CN II-XII intact - Psychiatric Psychiatric exam: Present: normal affect, normal mood. Absent: agitated, anxious - Skin Skin exam: Present: normal color, warm, dry Results - Labs CBC & BMP: 05/19/17 03:35 05/19/17 03:35 Lab Results: I have reviewed the past 24 hour labs Labs: Creatinine down 1.30--1.50 BUN down 37--48 WBC up 13.3--11.3 ( s/p ablation x1 day post op) H&H remains stable Quality Measures - Stroke Symptom Onset Unknown: No
--- NOTE | 2017-05-19 11:36 | XRay Report ---
XR chest 1V portable Indication: Shortness of breath Comparison: 14 May 2017 Findings: The heart and mediastinum are normal in size and configuration. The pulmonary vascularity is normal in caliber. Increased basilar pulmonary density bilaterally. No other lung infiltrates, effusions, pneumothorax or other abnormality is demonstrated. Impression: Increased bilateral lower lung density, could indicate infiltrate versus atelectasis. PROCEDURE INTERPRETED AT [facility] DEPARTMENT OF RADIOLOGY Final Report Signed by: Dr. Florentin Vázquez
[2017-05-19] MEDS ORDERED: LACTULOSE 20 GM/30 ML UDCUP PO PRN (14:29)
--- NOTE | 2017-05-19 16:11 | Cardiology Progress Note ---
Arben Hernandez Vanessa, RN, am scribing for, and in the presence of, Merlin Segura MD 16 :10. Assessment and Plan - Time spent with patient Time spent with patient: Greater than 30 minutes (1) Atrial flutter with RVR Status: Acute Assessment and plan: 57-year-old WM, PMHx hypertension, diabetes, medical noncompliance. Admitted with shortness of breath, found to have typical atrial flutter with RVR, difficult rate control with mild fluid overload. Elevated LFTs, PENELOPE/CKD which has improved. He has improved with diuresis, med management, and is status post atrial flutter ablation. Echo: LVEF 40-45%, mild KVNG, mild TR/MR EKG: SR/ST 90s-100 05/18- ablation of typical atrial flutter (cavotricuspid isthmus linear lesion) -Stable sinus rhythm/sinus tachycardia since the ablation. -CHF-improving with IV diuresis. He also had pleural effusion. Anticipate slow resolution, with better rhythm/rate control, diuresis -Left groin no bruising or hematoma -PENELOPE / LFTs cont to improve -Cont low dose ASA. Continue anticoagulation with Eliquis. -DC bynum catheter today. -If stable after diuresis today, may be able to go home tomorrow Current Visit: Yes (2) Elevated LFTs Status: Acute Assessment and plan: SEE PLAN OF CARE LISTED ABOVE. Current Visit: Yes (3) Diabetes mellitus Status: Chronic Assessment and plan: SEE PLAN OF CARE LISTED ABOVE. Current Visit: Yes Qualifiers: Diabetes mellitus type: type 2 Diabetes mellitus complication status: with kidney complications Diabetes mellitus terminal carman insulin use: without terminal carman use (4) Hypertension Status: Chronic Assessment and plan: SEE PLAN OF CARE LISTED ABOVE. Current Visit: Yes Qualifiers: Hypertension type: essential hypertension Qualified Code(s): I10 - Essential (primary) hypertension (5) Non-compliant patient Status: Chronic Assessment and plan: SEE PLAN OF CARE LISTED ABOVE. Current Visit: Yes (6) Acute kidney injury Problem details: Most likely due to hypotensive/ischemic ATN, mild with preserved acidification. Continues to improve. eGFR 67cc/min Status: Acute Assessment and plan: SEE PLAN OF CARE LISTED ABOVE. Current Visit: Yes (7) Hyperbilirubinemia Status: Acute Assessment and plan: SEE PLAN OF CARE LISTED ABOVE. Current Visit: Yes Cardiology - PN: Subj Interval history: Binder Stripper Machine: Dr. 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 Cota, 57-year-old WM, PMHx hypertension, diabetes (poorly controlled, Hgb A1c 11.3), medical noncompliance. No known history of CAD, and he has never been a smoker. Admitted to [facility] telemetry on 05/14 after presenting to the ED with shortness of breath, chest pain, lower extremity edema. Patient reported he ran out of his medications several months ago due to cost issues and loss of insurance. EKG showed atrial flutter with RVR 150s. No palpitations or syncope. Initially rate controlled with IV Cardizem and was transitioned to PO Cardizem in addition to starting anticoagulation. LFTs elevated on admit, initially trended upward, but have now improved. PENELOPE noted after admission, contributed to ATN/hypotension, and has improved. Initially hyperkalemic/hyponatremic but improved now. Echocardiogram normal systolic function, LVEF 40-45%, mild biatrial enlargement, mild MR/TR. Has been gently diuresed for some mild volume overload r/t RVR with atrial flutter. On 05/18, underwent EP study with successful ablation of typical atrial flutter. May: Awake and alert this morning. No chest pain. No resting dyspnea. Mild dyspnea with light exertion in bed. Left groin site without bleed or hematoma. No significant swelling of lower ext's. Does have some bibasilar crackles. SBP 135- 150 mmHg. Tele: SR/ST, HR 80s-100. No ectopy, dyrhythmia. Labs reviewed. Slight elevation WBC 13,300. Cell counts stable. Electrolytes stable. Creatinine continues to improve, 1.3. Continue to monitor and treat hypertension , volume overload, renal dysfunction, sinus tach. Currently stable. ROS: -dyspnea with light exertion, no resting dyspnea, no cough -no chest pain, tightness, or palpitations -no abd pain, N/V. Appetite is good. Exam (Progress Note) - Constitutional Vitals: Period Temp Pulse Resp BP Sys/Sanches Pulse Ox Last 24 Hr 96.2 F-97.6 F 92-108 16-22 126-188/75-96 90-93 Exam: General: Appears well with no apparent distress. Pleasant and cooperative. Appears comfortable. HEENT: PERRL, normocephalic, atraumatic. Mucous membranes moist. No jaundice noted. Conjunctiva moist and clear, sclerae anicteric. Neck: No JVD, no thyromegaly or lymphadenopathy noted. No carotid bruit appreciated. Cardiac: Regular rate and rhythm. No murmur rub or gallop. PMI is nondisplaced. Lungs: Slight bibasilar crackles. No wheeze, stridor. Not requiring supplemental oxygen today. Mild dyspnea with light exertion. Abdomen: Soft, bowel sounds normoactive. Nontender. No distention. No abdominal bruit or thrill noted. No masses noted. Musculoskeletal: No fluid collection. Full range of motion is noted noted. Extremities: No clubbing, cyanosis noted. 2+ pitting edema to bilateral lower extremities. Upper extremity pulses 2+. Lower extremity pulses 2+. Capillary refill less than 3 seconds. Other: left groin site without bruising or hematoma. Skin: Warm and dry, intact. No unusual lesions or rashes. No skin breakdown appreciated. Neuro: Awake, alert and oriented 3. Moves all extremities well without hemiparesis or paralysis. No essential tremor is appreciated. Result/EKG - Labs CBC & BMP: 05/19/17 03:35 05/19/17 03:35 Lab Results: I have reviewed the past 24 hour labs Labs: Laboratory Results - last 24 hr 05/18/17 05/18/17 05/18/17 10:13 15:36 19:46 WBC RBC Hgb Hct MCV MCH MCHC RDW Plt Count MPV Neut % (Auto) Lymph % (Auto) [place] % (Auto) Eos % (Auto) Baso % (Auto) Neut # (Auto) Lymph # (Auto) [place] # (Auto) Eos # (Auto) Baso # (Auto) Immature Gran % Nucleated RBC % Immature Gran # Nucleated RBCs # Immature Plt Fraction Sodium Potassium Chloride Carbon Dioxide Anion Gap BUN Creatinine GFR Calculation BUN/Creatinine Ratio Glucose POC Glucose 109 H 90 Calculated Osmolality Calcium Magnesium Urine Color Yellow Urine Appearance Slightly hazy Urine pH 5.0 Ur Specific [place] 1.008 Urine Protein Negative Urine Glucose (UA) Negative Urine Ketones 5 Urine Blood Negative Urine Nitrate Negative Urine Bilirubin Negative Urine Urobilinogen 2.0 H Urine Leukocytes Negative Urine WBC 2 Amorphous Crystals Moderate Urine Bacteria Occasional Urine Mucus Occasional Ur Culture Indicated? Not indicated 05/19/17 05/19/17 05/19/17 03:35 03:35 08:10 WBC 13.3 H RBC 4.60 Hgb 14.8 Hct 44.7 MCV 97.2 MCH 32 MCHC 33.1 RDW 13.5 Plt Count 242 MPV 10.8 Neut % (Auto) 80.1 H Lymph % (Auto) 7.5 L [place] % (Auto) 11.2 Eos % (Auto) 0.3 Baso % (Auto) 0.5 Neut # (Auto) 10.6 H Lymph # (Auto) 1.0 L [place] # (Auto) 1.5 H Eos # (Auto) 0.0 Baso # (Auto) 0.1 Immature Gran % 0.4 Nucleated RBC % 0.0 Immature Gran # 0.05 Nucleated RBCs # 0.00 Immature Plt Fraction 0.0 Sodium 141 Potassium 4.1 Chloride 106 Carbon Dioxide 24 Anion Gap 15.1 H BUN 37 H D Creatinine 1.30 GFR Calculation 79 BUN/Creatinine Ratio 28.00 H Glucose 73 L POC Glucose 170 H Calculated Osmolality 288.3 Calcium 8.6 Magnesium 2.6 H Urine Color Urine Appearance Urine pH Ur Specific [place] Urine Protein Urine Glucose (UA) Urine Ketones Urine Blood Urine Nitrate Urine Bilirubin Urine Urobilinogen Urine Leukocytes Urine WBC Amorphous Crystals Urine Bacteria Urine Mucus Ur Culture Indicated? - EKG EKG results: interpreted by me, no acute changes EKG shows: sinus rhythm Quality Measures - Stroke Symptom Onset Unknown: No IColton Attila, MD, personally performed the services described in this documentation, ascribed by Sydni Theodore RN in my presence, and it is both accurate and complete 611 .
[2017-05-19] MEDS: FUROSEMIDE 40 MG/4 ML VIAL IV SCH (17:05)
[2017-05-19] MEDS: ATORVASTATIN 40 MG TABLET PO SCH (21:04)
[2017-05-19] MEDS: TAMSULOSIN 0.4 MG CAPSULE PO SCH (21:05)
[2017-05-20 05:09] LABS: Basophils # 0.1 10*3/uL (0.0-0.2); Basophils % 0.5 % (0.0-0.8); Eosinophils # 0.2 10*3/uL (0.0-0.87); Eosinophils % 1.3 % (0.00-10.9); Hematocrit 44.9 VOL% (42.0-52.0); Hemoglobin 15.1 GM/DL (14.0-18.0); Immature Granulocytes % 0.4 %; Immature Granulocytes Absolute 0.05 #; Lymphocytes # 1.9 10*3/uL (1.4-4.0); Lymphocytes % 14.3 % (21.2-54.2); Mean Corpuscular HGB Conc 33.6 GM/DL (32-36); Mean Corpuscular Hemoglobin 33 PG (27-34); Monocytes # 1.7 10*3/uL (0.11-0.8); Monocytes % 12.9 % (1.7-12.7); Neutrophils # 9.2 10*3/uL (1.4-7.4); Neutrophils % 70.6 % (38.7-73.9); Platelet Count 260 T/CUMM (130-400); Red Blood Count 4.63 MC/CUMM (3.8-5.5); Red Cell Distribution Width 13.2 % (9.3-17.3)
[2017-05-20 05:46] LABS: Bilirubin,Direct 0.66 MG/DL (0.0-0.20); Bilirubin,Indirect 0.9 MG/DL (0.0-1.0); Bilirubin,Total 1.6 MG/DL (0.2-1.0); Calcium 8.3 MG/DL (8.5-10.1); Total Protein 6.9 G/DL (6.4-8.3)
[2017-05-20 05:47] LABS: Magnesium 2.5 MG/DL (1.8-2.4); Osmolality,Calculated 289.8 MOS/KG (273-304); Potassium 4.9 MMOL/L (3.5-5.1)
--- NOTE | 2017-05-20 08:43 | Physician Query Form ---
CLICK EDIT DOCUMENT TO SELECT QUERY ANSWER --> OK --> SIGN Meenakshi Davila RN Clinical Drafter Civil W) [phone] (f) [phone] [email or web address]: Make your selection(s) from the choices in EACH section by typing an "x" and enter comments in the comment section. Please use your independent medical judgment in providing your response. This request does not imply that any particular answer is desired or expected. CLINICAL INDICATORS: (Providers should not edit this section) Based on documentation of "CHF continue spironolactone" BNP of 448. Echo shows EF of 40/45%. Treated with IV Lasix and PO Spironolactone. Please provide further specificity regarding CHF. ACUITY: ( ) Acute ( ) Chronic ( x) Acute on Chronic ( ) Clinically unable to determine TYPE: (x ) Systolic (HFrEF - heart failure with reduced systolic function/EF) ( ) Diastolic (HFpEF - heart failure with preserved systolic function/EF) ( ) Combined Systolic/Diastolic ( ) Other, please specify: ( ) Clinically unable to determine ( x) Past Medical History of Systolic CHF ( ) Past Medical History of Diastolic CHF ( ) Clinically unable to determine COMMENTS: PLEASE ALSO DOCUMENT RESPONSE IN PROGRESS NOTES AND/OR DISCHARGE SUMMARY Use of terms such as suspected, likely, or probable (associated with a specific diagnosis that is being evaluated, monitored, or treated as if it exists) are acceptable and can be restated in the discharge summary if not ruled out. MTDD
[2017-05-20] MEDS: ASCORBIC ACID 500 MG TABLET PO SCH ×2 (09:00→21:44)
[2017-05-20] MEDS: METOPROLOL TARTRATE 100 MG TABLET PO SCH ×2 (09:00→21:44)
[2017-05-20] MEDS: INSULIN LISPRO 100 UNIT/ML SUBCUT SCH ×4 (09:00→21:44)
[2017-05-20] MEDS: GLIMEPIRIDE 4 MG TABLET PO SCH ×2 (09:01→18:46)
[2017-05-20] MEDS: PANTOPRAZOLE 40 MG TABLET PO SCH (09:01)
[2017-05-20] MEDS: INSULIN GLARGINE 100 UNIT/ML SUBCUT SCH (09:01)
[2017-05-20] MEDS: APIXABAN 5 MG TABLET PO SCH ×2 (09:01→21:44)
[2017-05-20] MEDS: ASPIRIN EC 81 MG TABLET PO SCH (09:01)
[2017-05-20] MEDS: FUROSEMIDE 40 MG/4 ML VIAL IV SCH ×2 (09:02→18:45)
--- NOTE | 2017-05-20 11:15 | Cardiology Progress Note ---
Assessment and Plan (1) Atrial flutter with RVR Status: Acute Assessment and plan: 57-year-old WM, PMHx hypertension, diabetes, medical noncompliance. Admitted with shortness of breath, found to have typical atrial flutter with RVR, difficult rate control with mild fluid overload. Elevated LFTs, PENELOPE/CKD which has improved. He has improved with diuresis, med management, and is status post atrial flutter ablation. Echo: LVEF 40-45%, mild KVNG, mild TR/MR EKG: SR/ST 90s-100 10/- ablation of typical atrial flutter (cavotricuspid isthmus linear lesion) -Stable sinus rhythm since the ablation. -CHF, SOB. Diuresed well with IV Lasix. The x-ray did not show much improvement. He may have some underlying pneumonia, I will defer decision on antibiotic management to the hospitalist. He only had mild systolic dysfunction , and now the heart rate is much better controlled -doubt primary cardiac reason for the pulmonary findings. On AQUILINO, he seemed to have pleural effusion also. -Try Tri-flow -Cont low dose ASA. Continue anticoagulation with Eliquis Current Visit: Yes (2) Elevated LFTs Status: Acute Assessment and plan: SEE PLAN OF CARE LISTED ABOVE. Current Visit: Yes (3) Diabetes mellitus Status: Chronic Assessment and plan: SEE PLAN OF CARE LISTED ABOVE. Current Visit: Yes Qualifiers: Diabetes mellitus type: type 2 Diabetes mellitus complication status: with kidney complications Diabetes mellitus skilled nursing insulin use: without body work auto trimmer use (4) Hypertension Status: Chronic Assessment and plan: SEE PLAN OF CARE LISTED ABOVE. Current Visit: Yes Qualifiers: Hypertension type: essential hypertension Qualified Code(s): I10 - Essential (primary) hypertension (5) Non-compliant patient Status: Chronic Assessment and plan: SEE PLAN OF CARE LISTED ABOVE. Current Visit: Yes (6) Acute kidney injury Problem details: Most likely due to hypotensive/ischemic ATN, mild with preserved acidification. Continues to improve. eGFR 67cc/min Status: Acute Assessment and plan: SEE PLAN OF CARE LISTED ABOVE. Current Visit: Yes (7) Hyperbilirubinemia Status: Acute Assessment and plan: SEE PLAN OF CARE LISTED ABOVE. Current Visit: Yes Cardiology - PN: Subj Interval history: He remained in sinus rhythm, heart rate contended down nicely. He is still hypoxic, if the takes of the oxygen. The DVT study was negative. X-ray shows persistent, bilateral infiltrates versus congestion. He actually digressed fairly. He is feeling better, denies chest pain, has mild shortness of breath with activity WBC still elevated, no fever Exam (Progress Note) - Constitutional Vitals: Period Temp Pulse Resp BP Sys/Sanches Pulse Ox Last 24 Hr 96.3 F-98.5 F 80-92 18-20 116-148/41-93 90-95 General appearance: normal weight, over weight - Head Head exam: Present: normal inspection. Absent: contusion - Eye Eye exam: Absent: conjunctival injection, scleral icterus Pupils: Present: dilated - ENT ENT exam: Present: normal external ear exam - Neck Neck exam: Present: normal inspection - Respiratory Respiratory exam: Present: decreased breath sounds, rales - Cardiovascular Cardiovascular exam: Present: regular rate and rhythm. Absent: JVD, systolic murmur - GI/Abdominal GI/Abdominal exam: Present: normal bowel sounds. Absent: distended - Extremities Exam Extremities exam: Present: normal inspection, normal capillary refill, edema ( Trace edema) - Back Exam Back exam: Present: normal inspection - Neurological Exam Neurological exam: Present: alert, oriented X3 - Psychiatric Psychiatric exam: Present: normal affect, normal mood - Skin Skin exam: Present: normal color, warm. Absent: cyanosis Result/EKG - Labs CBC & BMP: 05/20/17 03:45 05/20/17 03:45 Labs: Laboratory Results - last 24 hr 05/19/17 05/19/17 05/19/17 12:08 16:14 19:53 WBC RBC Hgb Hct MCV MCH MCHC RDW Plt Count MPV Neut % (Auto) Lymph % (Auto) [place] % (Auto) Eos % (Auto) Baso % (Auto) Neut # (Auto) Lymph # (Auto) [place] # (Auto) Eos # (Auto) Baso # (Auto) Immature Gran % Nucleated RBC % Immature Gran # Nucleated RBCs # Immature Plt Fraction Sodium Potassium Chloride Carbon Dioxide Anion Gap BUN Creatinine GFR Calculation BUN/Creatinine Ratio Glucose POC Glucose 280 H 237 H 255 H Calculated Osmolality Calcium Magnesium Total Bilirubin Direct Bilirubin Indirect Bilirubin AST ALT Alkaline Phosphatase Total Protein Albumin 05/20/17 05/20/17 05/20/17 03:45 03:45 08:12 WBC 13.0 H RBC 4.63 Hgb 15.1 Hct 44.9 MCV 97.0 MCH 33 MCHC 33.6 RDW 13.2 Plt Count 260 MPV 11.0 Neut % (Auto) 70.6 Lymph % (Auto) 14.3 L [place] % (Auto) 12.9 H Eos % (Auto) 1.3 Baso % (Auto) 0.5 Neut # (Auto) 9.2 H Lymph # (Auto) 1.9 [place] # (Auto) 1.7 H Eos # (Auto) 0.2 Baso # (Auto) 0.1 Immature Gran % 0.4 Nucleated RBC % 0.0 Immature Gran # 0.05 Nucleated RBCs # 0.00 Immature Plt Fraction 0.0 Sodium 137 Potassium 4.9 Chloride 102 Carbon Dioxide 24 Anion Gap 15.9 H BUN 42 H Creatinine 1.50 H GFR Calculation 66 BUN/Creatinine Ratio 28.00 H Glucose 206 H POC Glucose 216 H Calculated Osmolality 289.8 Calcium 8.3 L Magnesium 2.5 H Total Bilirubin 1.60 H Direct Bilirubin 0.660 H Indirect Bilirubin 0.9 AST 32 ALT 89 H Alkaline Phosphatase 125 H Total Protein 6.9 Albumin 3.0 L Quality Measures - Stroke Symptom Onset Unknown: No
--- NOTE | 2017-05-20 17:14 | Hospitalist Progress Note ---
Hospitalist: Subjective Interval history: Patient states that he is still experiencing shortness of breath. Also states that he has not had a bowel movement in about a week. Exam - Constitutional Vitals: Period Temp Pulse Resp BP Sys/Sanches Pulse Ox Last 24 Hr 97.3 F-98.5 F 80-92 18-20 116-148/72-93 90-96 Exam: General: No Acute Distress HEENT: Normocephalic, atraumatic, Extra ocular movements intact Neck: Supple, No JVD Chest: Crackles at both lung bases CV: S1 + S2 audible without murmur, gallop or rub Abd: soft, NT, Non-distended, BS + Ext: Mild edema Skin: No purpura, bruising or rash Rheumatologic: No Joint deformities Neurologic: Awake and alert Results - Labs CBC & BMP: 05/20/17 03:45 05/20/17 03:45 - Impressions Assessment and Plan: Atrial flutter with RVR Status: Acute Assessment and plan: Patient is s/p ablation 05/18. Continue Eliquis Current Visit: Yes Acute systolic CHF Status: Acute Assessment and plan: EF of 40-45% on Echo, continue IV Lasix Current Visit: Yes Acute hypoxemic respiratory failure Status: Acute Assessment and plan: He is on 2 L of oxygen, and desaturates without it Current Visit: Yes Bilateral lung infiltrates Status: Acute Assessment and plan: His lung infiltrates have failed to respond to Lasix. I am concerned about pneumonia. Get a CT scan of the chest to rule out pneumonia; started IV Levaquin, clindamycin and Zosyn 05/20 Current Visit: Yes Constipation Status: Acute Assessment and plan: He has been started on Colace and MiraLAX Current Visit: Yes Elevated LFTs Status: Acute Current Visit: Yes Quality Measures - Stroke Symptom Onset Unknown: No
--- NOTE | 2017-05-20 18:09 | CT Report ---
Exam: CT chest without intravenous contrast Exam date: 05/20/2017 6:04 PM Clinical History: 57 years Male difficulty breathing Technique: Axial computed tomography images of the chest without intravenous contrast. The CT exam was performed using one or more of the following dose reduction techniques: Automated exposure control, adjustment of the mA and/or kV according to patient size, or use of iterative reconstruction technique. Comparison: No relevant prior studies available Findings: Lungs: Compressive atelectasis within the lung bases. Interlobular septal thickening with patchy groundglass opacities throughout the upper lobes.. Pleural spaces: Moderate bilateral pleural effusions Heart: No cardiomegaly. No pericardial effusion Mediastinum: Intact. Normal trachea Bones/joints: Intact. No acute fracture. No dislocation. Soft tissues: Unremarkable Vasculature: Intact Lymph nodes: No enlarged lymph nodes Visualized abdomen: Unremarkable Impression: 1. Moderate bilateral pleural effusions with compressive atelectasis of lower lobes 2. Interlobular septal thickening with patchy groundglass consolidations throughout the upper lobes. Differential considerations include interstitial edema versus diffuse inflammatory process PROCEDURE INTERPRETED AT [facility] DEPARTMENT OF RADIOLOGY Final Report Signed by: Callie Myles MD
[2017-05-20] MEDS: SIMETHICONE CHEW 125 MG TABLET PO PRN (18:45)
[2017-05-20] MEDS: PIPERACILLIN/TAZOBACTAM 3,375 MG in SODIUM CHLORIDE 0.9% 100 ML IV SCH ×2 (18:56→20:34)
[2017-05-20] MEDS: CLINDAMYCIN INJ 600 MG in PREMIX 1 EACH IV SCH ×2 (18:56→20:00)
[2017-05-20] MEDS: LEVOFLOXACIN INJ 500 MG in PREMIX 1 EACH IV SCH (18:56)
[2017-05-20] MEDS: POLYETHYLENE GLYCOL POWDER 17 GM PACK PO SCH (21:44)
[2017-05-20] MEDS: DOCUSATE SODIUM 100 MG CAPSULE PO SCH (21:44)
[2017-05-20] MEDS: ATORVASTATIN 40 MG TABLET PO SCH (21:44)
[2017-05-20] MEDS: TAMSULOSIN 0.4 MG CAPSULE PO SCH (21:44)
[2017-05-20] MEDS: ZALEPLON 5 MG CAPSULE PO PRN ×2 (23:47→23:53)
[2017-05-21] MEDS: PIPERACILLIN/TAZOBACTAM 3,375 MG in SODIUM CHLORIDE 0.9% 100 ML IV SCH ×4 (00:06→21:28)
[2017-05-21] MEDS: CLINDAMYCIN INJ 600 MG in PREMIX 1 EACH IV SCH ×2 (02:07→08:55)
[2017-05-21] MEDS: INSULIN LISPRO 100 UNIT/ML SUBCUT SCH ×4 (08:44→21:42)
[2017-05-21] MEDS: ASCORBIC ACID 500 MG TABLET PO SCH ×2 (08:49→21:30)
[2017-05-21] MEDS: ASPIRIN EC 81 MG TABLET PO SCH (08:50)
[2017-05-21] MEDS: METOPROLOL TARTRATE 100 MG TABLET PO SCH ×2 (08:50→21:30)
[2017-05-21] MEDS: APIXABAN 5 MG TABLET PO SCH ×2 (08:50→21:34)
[2017-05-21] MEDS: PANTOPRAZOLE 40 MG TABLET PO SCH (08:50)
[2017-05-21] MEDS: GLIMEPIRIDE 4 MG TABLET PO SCH ×2 (08:50→16:56)
[2017-05-21] MEDS: DOCUSATE SODIUM 100 MG CAPSULE PO SCH ×2 (08:50→21:31)
[2017-05-21] MEDS: INSULIN GLARGINE 100 UNIT/ML SUBCUT SCH (08:50)
[2017-05-21] MEDS: FUROSEMIDE 40 MG/4 ML VIAL IV SCH ×2 (08:51→16:56)
[2017-05-21] MEDS: POLYETHYLENE GLYCOL POWDER 17 GM PACK PO SCH ×2 (10:09→21:34)
--- NOTE | 2017-05-21 11:32 | Cardiology Progress Note ---
Assessment and Plan (1) Atrial flutter with RVR Status: Acute Assessment and plan: 57-year-old WM, PMHx hypertension, diabetes, medical noncompliance. Admitted with shortness of breath, found to have typical atrial flutter with RVR, difficult rate control with mild fluid overload. Elevated LFTs, PENELOPE/CKD which has improved. He has improved with diuresis, med management, and is status post atrial flutter ablation. Echo: LVEF 40-45%, mild KVNG, mild TR/MR EKG: SR/ST 90s-100 05/18- ablation of typical atrial flutter (cavotricuspid isthmus linear lesion) -Stable sinus rhythm since the ablation. -CHF, SOB. Diuresed well with IV Lasix. May switch to p.o. soon. There may be an inflammatory/infectious etiology to the pleural effusion, he had symptomatic improvement with antibiotics. -I doubt hemothorax, continue anticoagulation with Eliquis, recent AFL ablation. Anticoagulation may be held, if pleural tap, centesis is planned -Cont triflo -Cont low dose ASA. Continue anticoagulation with Eliquis Current Visit: Yes (2) Elevated LFTs Status: Acute Assessment and plan: SEE PLAN OF CARE LISTED ABOVE. Current Visit: Yes (3) Diabetes mellitus Status: Chronic Assessment and plan: SEE PLAN OF CARE LISTED ABOVE. Current Visit: Yes Qualifiers: Diabetes mellitus type: type 2 Diabetes mellitus complication status: with kidney complications Diabetes mellitus intermediate teacher insulin use: without residential use (4) Hypertension Status: Chronic Assessment and plan: SEE PLAN OF CARE LISTED ABOVE. Current Visit: Yes Qualifiers: Hypertension type: essential hypertension Qualified Code(s): I10 - Essential (primary) hypertension (5) Non-compliant patient Status: Chronic Assessment and plan: SEE PLAN OF CARE LISTED ABOVE. Current Visit: Yes (6) Acute kidney injury Problem details: Most likely due to hypotensive/ischemic ATN, mild with preserved acidification. Continues to improve. eGFR 67cc/min Status: Acute Assessment and plan: SEE PLAN OF CARE LISTED ABOVE. Current Visit: Yes (7) Hyperbilirubinemia Status: Acute Assessment and plan: SEE PLAN OF CARE LISTED ABOVE. Current Visit: Yes Cardiology - PN: Subj Interval history: CT scan showed bilateral pleural effusion, antibiotics were started. He is feeling better today, gets less short of breath with ambulation. Heart rate remained in sinus rhythm, the tachycardia resolved. Exam (Progress Note) - Constitutional Vitals: Period Temp Pulse Resp BP Sys/Sanches Pulse Ox Last 24 Hr 96.4 F-97.6 F 73-97 16-20 130-159/80-95 93-96 General appearance: no acute distress, over weight - Head Head exam: Present: normal inspection. Absent: contusion - Eye Eye exam: Absent: periorbital swelling, laceration to eyelids Pupils: Absent: dilated - ENT ENT exam: Present: normal external ear exam - Neck Neck exam: Present: normal inspection - Respiratory Respiratory exam: Present: decreased breath sounds. Absent: rhonchi, wheezes - Cardiovascular Cardiovascular exam: Present: regular rate and rhythm. Absent: JVD, systolic murmur - GI/Abdominal GI/Abdominal exam: Present: normal bowel sounds. Absent: distended - Extremities Exam Extremities exam: Present: normal inspection, normal capillary refill. Absent: edema - Back Exam Back exam: Present: normal inspection - Neurological Exam Neurological exam: Present: alert, oriented X3 - Psychiatric Psychiatric exam: Present: normal affect, normal mood - Skin Skin exam: Present: normal color, warm. Absent: cyanosis Result/EKG - Labs CBC & BMP: 05/20/17 03:45 05/20/17 03:45 Lab Results: I have reviewed the past 24 hour labs Labs: Laboratory Results - last 24 hr 05/20/17 05/20/17 05/20/17 11:35 14:53 19:35 POC Glucose 305 H 185 H 255 H 05/21/17 07:29 POC Glucose 115 H - EKG EKG results: interpreted by me Quality Measures - Stroke Symptom Onset Unknown: No
--- NOTE | 2017-05-21 15:38 | Hospitalist Progress Note ---
Assessment and Plan (1) Elevated LFTs Status: Acute Assessment and plan: checking hepatitis panel. Current Visit: Yes (2) Hyperbilirubinemia Status: Acute Current Visit: Yes (3) Atrial flutter Status: Acute Assessment and plan: He is converted to normal sinus rhythm after ablation by cardiology. Current Visit: Yes (4) Hypertension Status: Chronic Current Visit: Yes Qualifiers: Hypertension type: essential hypertension Qualified Code(s): I10 - Essential (primary) hypertension (5) Atrial flutter with RVR Status: Acute Assessment and plan: Heart rate controlled. Started on metoprolol. Cardiology consult noted. Ablation performed. Anticoagulated with Eliquis. Current Visit: Yes (6) Diabetes mellitus Status: Chronic Assessment and plan: Hemoglobin A1c 11.3. Patient has not been on medications for several months. Start glyburide and add Lantus. Continue Accu-Cheks and sliding scale insulin. 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 Continues to improve. eGFR 67cc/min Status: Acute Assessment and plan: We will obtain a 24-hour urine to evaluate protein loss Current Visit: Yes Hospitalist: Subjective Interval history: Patient seen and examined. No acute events overnight. Case discussed with nursing staff. Labs reviewed. The patient reports improvement in his shortness of breath. His CT scan results were reviewed. He is awaiting pulmonary consultation. He was started on antibiotics yesterday afternoon as a result of his CT findings. He is noted to have bilateral pleural effusions and continues to have bilateral lower extremity edema. Exam - Constitutional Vitals: Period Temp Pulse Resp BP Sys/Sanches Pulse Ox Last 24 Hr 96.4 F-97.6 F 73-101 16-20 134-159/80-95 93-96 Exam: Constitutional System: No distress. No tremulousness. Head: Normocephalic, atraumatic. Ears, Nose and Throat System: No pain or tenderness. No epistaxis or discharge Eyes System: Pupils equal, round, and reactive. Extraocular muscles intact. Neck: Supple, without adenopathy, No jugular venous distention. No thyromegaly, neck mass, or prior surgery apparent. Respiratory System: Chest decreased breath sounds at the bases with scattered wheezing. Cardiovascular System: Heart with regular rate and rhythm. No murmur. GI System: Abdomen soft, nontender. Normo active bowel sounds present. Musculoskeletal System: limbs with bilateral pitting pedal edema. Full distal pulses. Normal capillary refill. Neurological System: No discernable sensory deficit. No aphasia Psychiatric System: Conversation is rational Results - Labs CBC & BMP: 05/20/17 03:45 05/20/17 03:45 Lab Results: I have reviewed the past 24 hour labs - Diagnostic Findings Procedure: CT - chest: image reviewed by me, report reviewed by me Quality Measures - Stroke Symptom Onset Unknown: No
[2017-05-21] MEDS: methylPREDNISolone SOD SUC 125 MG/2 ML VIAL IV SCH (16:53)
[2017-05-21] MEDS: LEVOFLOXACIN INJ 500 MG in PREMIX 1 EACH IV SCH (17:18)
[2017-05-21] MEDS: ALBUMIN 25% 25 GM in PREMIX 1 EACH IV SCH (18:47)
[2017-05-21] MEDS: ALBUTEROL/IPRATROPIUM 3 ML NEB RESP TX SCH (20:20)
[2017-05-21] MEDS: ATORVASTATIN 40 MG TABLET PO SCH (21:30)
[2017-05-21] MEDS: ZALEPLON 5 MG CAPSULE PO PRN (21:30)
[2017-05-21] MEDS: SIMETHICONE CHEW 125 MG TABLET PO PRN (21:30)
[2017-05-21] MEDS: TAMSULOSIN 0.4 MG CAPSULE PO SCH (21:31)
[2017-05-22] MEDS: ALBUMIN 25% 25 GM in PREMIX 1 EACH IV SCH ×3 (00:34→16:12)
[2017-05-22] MEDS: ALBUTEROL/IPRATROPIUM 3 ML NEB RESP TX SCH ×4 (01:14→20:09)
[2017-05-22 04:44] LABS: Calcium 8.6 MG/DL (8.5-10.1); Osmolality,Calculated 295.5 MOS/KG (273-304); Potassium 4.3 MMOL/L (3.5-5.1)
[2017-05-22] MEDS: methylPREDNISolone SOD SUC 125 MG/2 ML VIAL IV SCH ×2 (04:46→16:12)
[2017-05-22 06:07] LABS: Hepatitis A Ab IgM Result Negative (Negative); Hepatitis B Core IgM Quant 0.12 Index; Hepatitis B Core IgM Result Negative (Negative); Hepatitis B Surface Ag Quant 0.13 Index; Hepatitis B Surface Ag Result Negative (Negative); Hepatitis C Virus Ab Quant 0.07 Index; Hepatitis C Virus Ab Result Negative (Negative)
[2017-05-22] MEDS: PIPERACILLIN/TAZOBACTAM 3,375 MG in SODIUM CHLORIDE 0.9% 100 ML IV SCH ×3 (06:45→22:55)
[2017-05-22] MEDS: APIXABAN 5 MG TABLET PO SCH ×2 (08:32→22:49)
[2017-05-22] MEDS: PANTOPRAZOLE 40 MG TABLET PO SCH (08:32)
[2017-05-22] MEDS: ASCORBIC ACID 500 MG TABLET PO SCH ×2 (08:32→22:48)
[2017-05-22] MEDS: ASPIRIN EC 81 MG TABLET PO SCH (08:32)
[2017-05-22] MEDS: INSULIN GLARGINE 100 UNIT/ML SUBCUT SCH (08:33)
[2017-05-22] MEDS: GLIMEPIRIDE 4 MG TABLET PO SCH ×2 (08:33→16:14)
[2017-05-22] MEDS: METOPROLOL TARTRATE 100 MG TABLET PO SCH ×2 (08:33→22:48)
[2017-05-22] MEDS: DOCUSATE SODIUM 100 MG CAPSULE PO SCH ×2 (08:33→22:50)
[2017-05-22] MEDS: INSULIN LISPRO 100 UNIT/ML SUBCUT SCH ×5 (08:34→22:50)
[2017-05-22] MEDS: FUROSEMIDE 40 MG/4 ML VIAL IV SCH ×2 (08:34→16:15)
[2017-05-22] MEDS: POLYETHYLENE GLYCOL POWDER 17 GM PACK PO SCH ×2 (08:42→22:56)
--- NOTE | 2017-05-22 09:48 | Pulmonology Consult Note ---
Assessment and Plan (1) Congestive heart failure Status: Acute Assessment and plan: The patient's clinical picture suggest congestive heart failure. He feels like he is getting better. Will plan a thoracentesis if he does not clear. He does seem to be doing better with diuresis. Current Visit: Yes (2) Hypertension Status: Chronic Assessment and plan: His blood pressure is still toward the high side. Current Visit: Yes Qualifiers: Hypertension type: essential hypertension Qualified Code(s): I10 - Essential (primary) hypertension (3) Atrial flutter with RVR Status: Acute Assessment and plan: His heart rate is under better control. Current Visit: Yes (4) Diabetes mellitus Status: Chronic Assessment and plan: The patient apparently has problems with his diabetes. He looks like he has several organs affected. 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 Continues to improve. eGFR 67cc/min Status: Acute Assessment and plan: His creatinine is little better at 1.4. Current Visit: Yes History of Present Illness Chief complaint: Shortness of breath History of present illness: Mr. Cota is a 57 year old white male came in last week with increasing shortness of breath and have atrial arrhythmias. He apparently was having considerable swelling of his abdomen and legs also. He said he cannot talk or walk anywhere without being short of breath. He says he is feeling better now. He has been monitored and had rapid atrial fibrillation but is doing better now. He does have some mild left ventricular dysfunction. He says he is more comfortable now and not having any chest pain. He is not coughing any sputum and is never had any lung disease. He is a lifetime non-smoker. He is a diabetic and is being evaluated for sleep apnea. He still has an abnormal chest x-ray and CT. Home Medications Medication Instructions Recorded Confirmed Type No Known Home Medications [No 05/14/17 05/14/17 History Known Home Medications] Allergies Allergy/AdvReac Type Severity Reaction Status Date / Time No Known Allergies Allergy Verified 05/14/17 09:15 - Constitutional Constitutional: Present: fatigue, weight gain. Absent: chills, fever(s) - EENT Eyes: Absent: loss of vision Ears: Absent: decreased hearing Nose, mouth and throat: Absent: dysphagia, headache(s) - Cardiovascular Cardiovascular: Present: dyspnea, edema, orthopnea, palpitations, PND. Absent: chest pain at rest - Respiratory Respiratory: Absent: cough, wheezing, change in phlegm color - Gastrointestinal Gastrointestinal: Absent: abdominal pain, change in bowel habits, nausea, vomiting - Genitourinary Genitourinary: Present: urinary frequency. Absent: difficulty urinating, hematuria - Musculoskeletal Musculoskeletal: Absent: arthralgias - Neurological Neurological: Absent: abnormal speech, focal weakness Exam (Pulmonay) H&P - Constitutional Vitals: Period Temp Pulse Resp BP Sys/Sanches Pulse Ox Last 24 Hr 96.3 F-98.6 F 75-104 16-20 125-158/78-92 93-99 General appearance: no acute distress, over weight - Head Head exam: Present: normal inspection, normocephalic - Eye Eye exam: Present: EOMI. Absent: scleral icterus Pupils: Present: GAGE - ENT ENT exam: Present: normal exam - Neck Neck exam: Absent: lymphadenopathy, thyromegaly - Respiratory Respiratory exam: Present: decreased breath sounds (He does have decreased breath sounds in the bases.), rales. Absent: accessory muscle use - Cardiovascular Cardiovascular exam: Present: JVD, regular rate and rhythm, systolic murmur (He has a soft murmur). Absent: gallop - GI/Abdominal GI/Abdominal exam: Present: distended, soft. Absent: organomegaly, tenderness - Extremities Exam Extremities exam: Present: edema. Absent: calf tenderness - Neurological Exam Neurological exam: Present: alert, oriented X3, CN II-XII intact - Psychiatric Psychiatric exam: Present: normal affect, normal mood - Skin Skin exam: Present: warm, dry Medical,Surgical,& Family Hx - Medical History Cardio: History of: Hypertension Neurology: No history of: Seizures HEENT: History of: Eye Problem (CATARECT SURGERY ON BOTH EYES, RETINA DETACH) Endocrine: History of: Diabetes Mellitus (NIDDM) Respiratory: No history of: Respiratory Problems Renal: No history of: Renal Problems Gastrointestinal: History of: GERD No history of: Gastrointestinal Bleed, Liver Problems, Ulcerative Colitis, GI Problems Hematology: No history of: Blood Transfusion Reaction - Surgical History Cardiac Surgeries: Sugical HX of: Cardiac Catheterization (negative heart cath) Thoracic Surgeries: Patient denies;: Lobectomy Neurologic Surgeries: Patient denies: Neurologic Surgery Abdominal Surgeries: Surgical HX of: Appendectomy - Family History Family History: Reports;: Family Cancer (MOTHER AND FATHER), Family Diabetes ( His brother), Family Hypertension (SISTER AND BROTHER) Denies;: Family Heart Disease - Social History Smoking Status: Never smoker Frequency of Alcohol Use: Occasionally Type of Drug Use: None Results - Labs CBC & BMP: 05/20/17 03:45 05/22/17 03:29 - Diagnostic Findings Procedure: Chest x-ray: image reviewed by me, report reviewed by me (Chest x- ray looks like heart failure.), CT - chest: image reviewed by me, report reviewed by me (CT shows bilateral effusions and is consistent with heart failure) Quality Measures - Stroke Symptom Onset Unknown: No
--- NOTE | 2017-05-22 11:15 | Cardiology Progress Note ---
Assessment and Plan (1) Atrial flutter with RVR Status: Acute Assessment and plan: 57-year-old WM, PMHx hypertension, diabetes, medical noncompliance. Admitted with shortness of breath, found to have typical atrial flutter with RVR, difficult rate control with mild fluid overload. Elevated LFTs, PENELOPE/CKD which has improved. He has improved with diuresis, med management, and is status post atrial flutter ablation. Echo: LVEF 40-45%, mild KVNG, mild TR/MR EKG: SR/ST 90s-100 05/18- ablation of typical atrial flutter (cavotricuspid isthmus linear lesion) -Stable sinus rhythm since the ablation. -CHF, SOB. His shortness of breath improved with IV Lasix, but the bilateral pleural effusions persist. Renal, pulmonary etiology is being worked up. -Continue anticoagulation with Eliquis. May be held, if needed for thoracocentesis or similar procedure. He did not have an JIMMY thrombus on AQUILINO prior to the ablation -Plan to continue anticoagulation for a month, if no recurrence of the arrhythmia. -Continue aspirin Current Visit: Yes (2) Elevated LFTs Status: Acute Assessment and plan: SEE PLAN OF CARE LISTED ABOVE. Current Visit: Yes (3) Diabetes mellitus Status: Chronic Assessment and plan: SEE PLAN OF CARE LISTED ABOVE. 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 Current Visit: Yes Qualifiers: Hypertension type: essential hypertension Qualified Code(s): I10 - Essential (primary) hypertension (5) Non-compliant patient Status: Chronic Assessment and plan: SEE PLAN OF CARE LISTED ABOVE. Current Visit: Yes (6) Acute kidney injury Problem details: Most likely due to hypotensive/ischemic ATN, mild with preserved acidification. Continues to improve. eGFR 67cc/min Status: Acute Assessment and plan: SEE PLAN OF CARE LISTED ABOVE. Current Visit: Yes (7) Hyperbilirubinemia Status: Acute Assessment and plan: SEE PLAN OF CARE LISTED ABOVE. Current Visit: Yes Cardiology - PN: Subj Interval history: Stable sinus rhythm since admission. Shortness of breath persists, bilateral pleural effusion. Denies chest pain, the lower extremity to improved. Exam (Progress Note) - Constitutional Vitals: Period Temp Pulse Resp BP Sys/Sanches Pulse Ox Last 24 Hr 96.3 F-98.6 F 75-104 16-20 125-158/78-92 93-99 General appearance: normal weight, over weight - Head Head exam: Present: normal inspection, normocephalic - Eye Eye exam: Absent: conjunctival injection, scleral icterus Pupils: Absent: dilated, irregular - ENT ENT exam: Present: normal external ear exam - Neck Neck exam: Present: normal inspection - Respiratory Respiratory exam: Present: decreased breath sounds. Absent: rhonchi, wheezes - Cardiovascular Cardiovascular exam: Present: regular rate and rhythm. Absent: JVD, systolic murmur, tachycardia - GI/Abdominal GI/Abdominal exam: Present: normal bowel sounds. Absent: distended - Extremities Exam Extremities exam: Present: normal inspection, normal capillary refill. Absent: edema - Back Exam Back exam: Present: normal inspection - Neurological Exam Neurological exam: Present: alert, oriented X3 - Psychiatric Psychiatric exam: Present: normal affect, normal mood - Skin Skin exam: Present: normal color, warm. Absent: cyanosis Result/EKG - Labs CBC & BMP: 05/20/17 03:45 05/22/17 03:29 Lab Results: I have reviewed the past 24 hour labs Labs: Laboratory Results - last 24 hr 05/21/17 05/21/17 05/21/17 11:37 15:31 21:40 Sodium Potassium Chloride Carbon Dioxide Anion Gap BUN Creatinine GFR Calculation BUN/Creatinine Ratio Glucose POC Glucose 296 H 303 H 118 H Calculated Osmolality Calcium Magnesium Hepatitis A IgM Ab Hep Bs Antigen Hep B Core IgM Ab Hepatitis C Antibody 05/22/17 05/22/17 05/22/17 03:29 03:29 07:17 Sodium 139 Potassium 4.3 Chloride 100 Carbon Dioxide 26 Anion Gap 17.3 H BUN 37 H Creatinine 1.40 H GFR Calculation 73 BUN/Creatinine Ratio 26.00 H Glucose 271 H POC Glucose 315 H Calculated Osmolality 295.5 Calcium 8.6 Magnesium 2.0 Hepatitis A IgM Ab Negative Hep Bs Antigen Negative Hep B Core IgM Ab Negative Hepatitis C Antibody Negative - EKG EKG results: interpreted by me Quality Measures - Stroke Symptom Onset Unknown: No
--- NOTE | 2017-05-22 12:06 | Hospitalist Progress Note ---
Assessment and Plan (1) Atrial flutter Status: Acute Assessment and plan: He is converted to normal sinus rhythm after ablation by cardiology. He is anticoagulated with Eliquis and also on aspirin Current Visit: Yes Qualifiers: Atrial flutter type: typical Qualified Code(s): I48.3 - Typical atrial flutter (2) Elevated LFTs Status: Acute Assessment and plan: checking hepatitis panel. Current Visit: Yes (3) Hyperbilirubinemia Status: Acute Current Visit: Yes (4) Hypertension Status: Chronic Current Visit: Yes Qualifiers: Hypertension type: essential hypertension Qualified Code(s): I10 - Essential (primary) hypertension (5) Atrial flutter with RVR Status: Acute Assessment and plan: Heart rate controlled. Started on metoprolol. Cardiology consult noted. Ablation performed. Anticoagulated with Eliquis. Current Visit: Yes (6) Diabetes mellitus Status: Chronic Assessment and plan: Hemoglobin A1c 11.3. Patient has not been on medications for several months. Start glyburide and add Lantus. Continue Accu-Cheks and sliding scale insulin. 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 Continues to improve. eGFR 67cc/min Status: Acute Assessment and plan: We will obtain a 24-hour urine to evaluate protein loss Current Visit: Yes (8) Pneumonia Status: Acute Assessment and plan: Started on antibiotics including Zosyn and Levaquin based on CT scan of the chest showing bilateral infiltrates versus fluid. Current Visit: Yes (9) Peripheral edema Status: Acute Assessment and plan: Continue albumin with Lasix and Aldactone. Monitor for improvement. 24-hour urine collection ordered. Current Visit: Yes (10) Pleural effusion Status: Acute Assessment and plan: Continue diuresis with Lasix and Aldactone. Consider thoracentesis if no improvement. Albumin added for improved oncotic pressures. Current Visit: Yes Hospitalist: Subjective Interval history: Patient seen and examined. No acute events overnight. Case discussed with nursing staff. Labs reviewed. Reports continued improvement of symptoms. Albumin infusion started last night with good diuretic response with Lasix and Aldactone. Pulmonary consult reviewed. Thoracentesis being considered if symptoms do not improve with medical diuresis. Exam - Constitutional Vitals: Period Temp Pulse Resp BP Sys/Sanches Pulse Ox Last 24 Hr 96.3 F-98.6 F 75-104 16-20 125-158/78-92 93-99 Exam: Constitutional System: No distress. No tremulousness. Head: Normocephalic, atraumatic. Ears, Nose and Throat System: No pain or tenderness. No epistaxis or discharge Eyes System: Pupils equal, round, and reactive. Extraocular muscles intact. Neck: Supple, without adenopathy, No jugular venous distention. No thyromegaly, neck mass, or prior surgery apparent. Respiratory System: Chest decreased breath sounds at the bases with rales. No more wheezing. Cardiovascular System: Heart with regular rate and rhythm. No murmur. GI System: Abdomen soft, nontender. Normo active bowel sounds present. Musculoskeletal System: limbs with bilateral pitting pedal edema-improving. Full distal pulses. Normal capillary refill. Neurological System: No discernable sensory deficit. No aphasia Psychiatric System: Conversation is rational Results - Labs CBC & BMP: 05/20/17 03:45 05/22/17 03:29 Lab Results: I have reviewed the past 24 hour labs Quality Measures - Stroke Symptom Onset Unknown: No
[2017-05-22] MEDS: LEVOFLOXACIN INJ 500 MG in PREMIX 1 EACH IV SCH (17:23)
[2017-05-22 17:43] LABS: Collection Time,Urine 24 HOURS; Total Protein 24 Hr Ur Result 750 MG/24HR (0-149.1); Total Volume,Urine 5000 ML (400-2000)
[2017-05-22] MEDS: ZALEPLON 5 MG CAPSULE PO PRN (22:48)
[2017-05-22] MEDS: TAMSULOSIN 0.4 MG CAPSULE PO SCH (22:48)
[2017-05-22] MEDS: ATORVASTATIN 40 MG TABLET PO SCH (22:48)
[2017-05-23] MEDS: ALBUTEROL/IPRATROPIUM 3 ML NEB RESP TX SCH ×4 (00:37→19:08)
[2017-05-23] MEDS: ALBUMIN 25% 25 GM in PREMIX 1 EACH IV SCH ×3 (02:42→16:30)
[2017-05-23] MEDS: methylPREDNISolone SOD SUC 125 MG/2 ML VIAL IV SCH (05:00)
[2017-05-23] MEDS: PIPERACILLIN/TAZOBACTAM 3,375 MG in SODIUM CHLORIDE 0.9% 100 ML IV SCH ×3 (05:43→22:26)
[2017-05-23] MEDS: ASCORBIC ACID 500 MG TABLET PO SCH ×2 (10:02→21:14)
[2017-05-23] MEDS: PANTOPRAZOLE 40 MG TABLET PO SCH (10:02)
[2017-05-23] MEDS: METOPROLOL TARTRATE 100 MG TABLET PO SCH ×2 (10:02→21:14)
[2017-05-23] MEDS: APIXABAN 5 MG TABLET PO SCH ×2 (10:02→21:14)
[2017-05-23] MEDS: GLIMEPIRIDE 4 MG TABLET PO SCH ×2 (10:03→16:28)
[2017-05-23] MEDS: ASPIRIN EC 81 MG TABLET PO SCH (10:03)
[2017-05-23] MEDS: INSULIN GLARGINE 100 UNIT/ML SUBCUT SCH (10:08)
[2017-05-23] MEDS: INSULIN LISPRO 100 UNIT/ML SUBCUT SCH ×4 (10:08→20:54)
[2017-05-23] MEDS: DOCUSATE SODIUM 100 MG CAPSULE PO SCH ×2 (10:08→21:14)
[2017-05-23] MEDS: FUROSEMIDE 40 MG/4 ML VIAL IV SCH ×2 (10:08→16:28)
[2017-05-23] MEDS: POLYETHYLENE GLYCOL POWDER 17 GM PACK PO SCH ×2 (10:09→21:14)
[2017-05-23 10:47] LABS: Basophils % 0.1 % (0.0-0.8); Hematocrit 42.1 VOL% (42.0-52.0); Hemoglobin 14.2 GM/DL (14.0-18.0); Immature Granulocytes % 0.8 %; Immature Granulocytes Absolute 0.11 #; Lymphocytes # 0.5 10*3/uL (1.4-4.0); Lymphocytes % 3.3 % (21.2-54.2); Mean Corpuscular HGB Conc 33.7 GM/DL (32-36); Mean Corpuscular Hemoglobin 32 PG (27-34); Mean Corpuscular Volume 95.5 FL (87-102); Mean Platelet Volume 10.4 FL (9.6-12.0); Monocytes # 0.4 10*3/uL (0.11-0.8); Monocytes % 3.1 % (1.7-12.7); NRBC # 0.02 10*3/uL; Neutrophils # 12.8 10*3/uL (1.4-7.4); Neutrophils % 92.7 % (38.7-73.9); Platelet Count 218 T/CUMM (130-400); Red Blood Count 4.41 MC/CUMM (3.8-5.5); Red Cell Distribution Width 12.7 % (9.3-17.3); White Blood Count 13.8 T/CUMM (4-12)
--- NOTE | 2017-05-23 11:18 | Cardiology Progress Note ---
Fer Hernandez Lesley, RIAN, am scribing for, and in the presence of, Job Gay MD 11:18. Assessment and Plan - Time spent with patient Time spent with patient: Greater than 30 minutes (Record review, assessment, and documentation) (1) Anticoagulation adequate Status: Chronic Assessment and plan: SEE PLAN LISTED BELOW Current Visit: Yes (2) Atrial flutter with RVR Status: Resolved Assessment and plan: SEE PLAN LISTED BELOW Current Visit: Yes (3) Elevated LFTs Status: Acute Assessment and plan: SEE PLAN LISTED BELOW Current Visit: Yes (4) Hypertension Status: Chronic Assessment and plan: SEE PLAN LISTED BELOW Current Visit: Yes Qualifiers: Hypertension type: essential hypertension Qualified Code(s): I10 - Essential (primary) hypertension (5) Acute kidney injury Problem details: Most likely due to hypotensive/ischemic ATN, mild with preserved acidification. Continues to improve. eGFR 67cc/min Status: Acute Assessment and plan: SEE PLAN LISTED BELOW Current Visit: Yes Cardiology - PN: Subj Interval history: PHARM SPEC: Dr. Ambriz (new) Mr. Cota is a 57-year-old WM, PMHx hypertension, diabetes, medical noncompliance. Admitted with shortness of breath, found to have typical atrial flutter with RVR, difficult rate control with mild fluid overload. Elevated LFTs, PENELOPE/CKD which has improved. He has improved with diuresis, med management , and is status post atrial flutter ablation. Echo: LVEF 40-45%, mild KVNG, mild TR/MR EKG: SR/ST 90s-100 05/18- ablation of typical atrial flutter (cavotricuspid isthmus linear lesion) May 23, 2017: The patient is sitting up in a chair. No oxygen in use, no complaints of dyspnea. He reports he is ambulatory in the room without the significant TRUJILLO he was having. Moderate bilateral pleural effusions, plan for thoracentesis this afternoon. Vital signs stable, telemetry monitoring reveals sinus rhythm rate 80 's. Labs pending, continue to monitor CHF, hypertension, kidney function, stable. ROS: absent - chest pain, dyspnea gen - no acute distress IMPRESSION AND PLAN: AFLUTTER - Stable sinus rhythm post ablation 05/18/17. CHF - His shortness of breath improved with IV Lasix, but the bilateral pleural effusions persist, plan for thoracentesis this afternoon. Renal, pulmonary etiology is being worked up. ANTICOAGULATION - Continue anticoagulation with Eliquis. May be held, if needed for thoracocentesis or similar procedure. 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 HYPERTENSION -Continue to monitor and adjust meds accordingly. ELEVATED LFTS - continue to monitor, improving. ACUTE KIDNEY INJURY - creatinine stable, continue to monitor. Cardiology addendum Patient examined and chart reviewed and discussed with nurse Mimi Monroe He feels much better. No temperature. White count is 13.8 with left shift. O2 sat 93% on 2 L Telemetry shows steady sinus rhythm. No recurrent atrial flutter. Status post ablation May 18, 2017 Plan Continue antibiotics nebs and steroids Monitor Continue Lopressor 100 mg twice daily Continue Eliquis 5 mg twice daily Exam (Progress Note) - Constitutional Vitals: Period Temp Pulse Resp BP Sys/Sanches Pulse Ox Last 24 Hr 96.2 F-97.8 F 81-87 17-20 137-155/75-96 90-99 Exam: General: Appears well with no apparent distress. Pleasant and cooperative. Appears comfortable. HEENT: PERRL, normocephalic, atraumatic. Mucous membranes moist. No jaundice noted. Conjunctiva moist and clear, sclerae anicteric. Neck: No JVD, no thyromegaly or lymphadenopathy noted. No carotid bruit appreciated. Cardiac: Regular rate and rhythm. No murmur rub or gallop. PMI is nondisplaced. Lungs: Clear to auscultation without accessory muscle use to assist the respiratory pattern. No oxygen in use. Abdomen: Soft, bowel sounds normoactive. Nontender and distended, tight. No abdominal bruit or thrill noted. No masses noted. Musculoskeletal: Bilateral edema noted to lower extremities. Full range of motion is noted noted. Extremities: No clubbing, cyanosis noted. 2+ pitting edema to bilateral lower extremities. Upper extremity pulses 2+. Lower extremity pulses 2+. Capillary refill less than 3 seconds. Skin: Warm and dry. No unusual lesions or rashes. No skin breakdown appreciated. Neuro: Awake, alert and oriented 3. Moves all extremities well without hemiparesis or paralysis. No essential tremor is appreciated. Result/EKG - Labs CBC & BMP: 05/23/17 10:35 05/22/17 03:29 Lab Results: I have reviewed the past 24 hour labs Labs: Laboratory Results - last 24 hr 05/22/17 05/22/17 05/22/17 11:56 14:31 15:59 POC Glucose 433 H 395 H 349 H Urine Collection Time Urine Total Volume Ur Total Protein 24 Hr 05/22/17 05/23/17 17:10 07:35 POC Glucose 282 H Urine Collection Time 24 Urine Total Volume 5000 H Ur Total Protein 24 Hr 750 H - Diagnostic Findings Procedure: Chest x-ray: image reviewed by me - EKG EKG results: interpreted by me, sinus rhythm Quality Measures - Stroke Symptom Onset Unknown: No I, Job Gay MD, personally performed the services described in this documentation, ascribed by Sonali Monroe NP in my presence, and it is both accurate and complete .
[2017-05-23 11:29] LABS: Hypochromasia Slight; Lymphocytes 8 % (20-55); Platelet Estimate Adequate; Segmented Neutrophils 91 % (50-85); Total Cells Counted 100
--- NOTE | 2017-05-23 12:04 | XRay Report ---
Chest, 2 views History is follow-up pleural effusions Comparison 05/19/2017 The heart is mildly enlarged. Mediastinal and hilar contours unchanged There remain hazy and mildly more confluent opacities in both lung bases slightly improved in the interval. Small to moderate bilateral pleural effusions remain posteriorly. Impression: 1. There is slight improvement with continued the bilateral basilar infiltrates and effusions. Continued follow-up recommended PROCEDURE INTERPRETED AT [facility] DEPARTMENT OF RADIOLOGY Final Report Signed by: Dr. Cydney Wu
--- NOTE | 2017-05-23 12:13 | Pulmonology Progress Note ---
Pulmonary - PN: Subj Interval history: Mr. Cota is a 57 year old white male came in last week with increasing shortness of breath and have atrial arrhythmias. He apparently was having considerable swelling of his abdomen and legs also. He said he cannot talk or walk anywhere without being short of breath. He says he is feeling better now. He has been monitored and had rapid atrial fibrillation but is doing better now. He does have some mild left ventricular dysfunction. He says he is more comfortable now and not having any chest pain. He still gets short of breath easily but is better. He is not having any pain and not coughing much now. His chest x-ray still shows bilateral effusions. On examination he has more of a right effusion. Will proceed with a thoracentesis today. Exam (Progress Note) - Constitutional Vitals: Period Temp Pulse Resp BP Sys/Sanches Pulse Ox Last 24 Hr 96.2 F-97.8 F 81-87 17-20 137-153/75-96 90-99 Exam: General appearance: no acute distress, over weight, he is relatively comfortable sitting up in bed. - Head Head exam: Present: normal inspection, normocephalic - Eye Eye exam: Present: EOMI. Absent: scleral icterus Pupils: Present: GAGE - ENT ENT exam: Present: normal exam - Neck Neck exam: Absent: lymphadenopathy, thyromegaly - Respiratory Respiratory exam: Present: decreased breath sounds (He does have decreased breath sounds in the bases. He has more dullness in the right base.), rales. Absent: accessory muscle use - Cardiovascular Cardiovascular exam: Present: JVD, regular rate and rhythm, systolic murmur (He has a soft murmur). Absent: gallop - GI/Abdominal GI/Abdominal exam: Present: distended, soft. Absent: organomegaly, tenderness - Extremities Exam Extremities exam: Present: edema. Absent: calf tenderness - Neurological Exam Neurological exam: Present: alert, oriented X3, CN II-XII intact - Psychiatric Psychiatric exam: Present: normal affect, normal mood - Skin Skin exam: Present: warm, dry Results - Labs CBC & BMP: 05/23/17 10:35 05/22/17 03:29 - Diagnostic Findings Procedure: Chest x-ray: image reviewed by me, report reviewed by me (Chest x- ray still shows bilateral effusions and suggest heart failure.) Assessment and Plan (1) Congestive heart failure Status: Acute Assessment and plan: The patient's clinical picture suggest congestive heart failure. He feels like he is getting better. He still gets short of breath easily and his chest x-ray is not much better. Will proceed with a right thoracentesis today. Current Visit: Yes (2) Hypertension Status: Chronic Assessment and plan: His blood pressure is still toward the high side. Current Visit: Yes Qualifiers: Hypertension type: essential hypertension Qualified Code(s): I10 - Essential (primary) hypertension (3) Atrial flutter with RVR Status: Resolved Assessment and plan: His heart rate is under better control. He still has an irregular rhythm. Current Visit: Yes (4) Diabetes mellitus Status: Chronic Assessment and plan: The patient apparently has problems with his diabetes. He looks like he has several organs affected. 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 Continues to improve. eGFR 67cc/min Status: Acute Assessment and plan: His creatinine is little better at 1.4. Current Visit: Yes
--- NOTE | 2017-05-23 14:11 | Operative Note ---
Date of procedure: 05/23/17 Pre-op diagnosis: Bilateral effusion Post-op diagnosis: same Procedure: The patient is a 57-year-old that is short of breath and has bilateral effusions. A right thoracentesis will be done for diagnosis and treatment. The patient is in his room and gave consent and a timeout was done. Procedure: The right chest was prepped in the usual manner. 1% lidocaine was used for anesthesia. A needle was inserted into the right posterior chest and fluid was removed. Then a catheter was inserted into the right posterior chest. Then 700 cc of fluid was removed. The fluid was sent for studies. Patient tolerated procedure well. Impression: Bilateral pleural effusions which are probably transudative. Plan: He is getting diuresis and will continue observation. Anesthesia: local Surgeon / Physician: Aquilino Ruff Estimated blood loss: none Specimens: other (Pleural fluid was sent for studies.) Condition: stable Disposition: floor Results - Labs CBC & BMP: 05/23/17 10:35 05/22/17 03:29 Discharge Plan - Discharge Medications No Action No Known Home Medications [No Known Home Medications] - Follow Up or Referral - Forms/Instructions
--- NOTE | 2017-05-23 15:36 | Hospitalist Progress Note ---
Assessment and Plan (1) Atrial flutter Status: Acute Assessment and plan: He is converted to normal sinus rhythm after ablation by cardiology. He is anticoagulated with Eliquis and also on aspirin Current Visit: Yes Qualifiers: Atrial flutter type: typical Qualified Code(s): I48.3 - Typical atrial flutter (2) Elevated LFTs Status: Acute Assessment and plan: checking hepatitis panel. Current Visit: Yes (3) Hyperbilirubinemia Status: Acute Current Visit: Yes (4) Hypertension Status: Chronic Current Visit: Yes Qualifiers: Hypertension type: essential hypertension Qualified Code(s): I10 - Essential (primary) hypertension (5) Atrial flutter with RVR Status: Resolved Assessment and plan: Heart rate controlled. Started on metoprolol. Cardiology consult noted. Ablation performed. Anticoagulated with Eliquis. Current Visit: Yes (6) Diabetes mellitus Status: Chronic Assessment and plan: Hemoglobin A1c 11.3. Patient has not been on medications for several months. Start glyburide and add Lantus. Continue Accu-Cheks and sliding scale insulin. 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 Continues to improve. eGFR 67cc/min Status: Acute Assessment and plan: We will obtain a 24-hour urine to evaluate protein loss Current Visit: Yes (8) Pneumonia Status: Acute Assessment and plan: Started on antibiotics including Zosyn and Levaquin based on CT scan of the chest showing bilateral infiltrates versus fluid. Current Visit: Yes (9) Peripheral edema Status: Acute Assessment and plan: Continue albumin with Lasix and Aldactone. Monitor for improvement. 24-hour urine collection reviewed. No evidence of nephrotic syndrome Current Visit: Yes (10) Pleural effusion Status: Acute Assessment and plan: Continue diuresis with Lasix and Aldactone. Consider thoracentesis if no improvement. Albumin added for improved oncotic pressures. Current Visit: Yes Hospitalist: Subjective Interval history: Patient seen and examined. No acute events overnight. Case discussed with nursing staff. Labs reviewed. He reports improvement in his symptoms. thoracentesis planned for today. Blood sugars elevated secondary to steroid use. Exam - Constitutional Vitals: Period Temp Pulse Resp BP Sys/Sanches Pulse Ox Last 24 Hr 96.2 F-97.8 F 81-88 18-20 137-153/75-96 90-99 Exam: Constitutional System: No distress. No tremulousness. Head: Normocephalic, atraumatic. Ears, Nose and Throat System: No pain or tenderness. No epistaxis or discharge Eyes System: Pupils equal, round, and reactive. Extraocular muscles intact. Neck: Supple, without adenopathy, No jugular venous distention. No thyromegaly, neck mass, or prior surgery apparent. Respiratory System: Chest decreased breath sounds at the bases with rales. Minimal wheezing. Cardiovascular System: Heart with regular rate and rhythm. No murmur. GI System: Abdomen soft, nontender. Normo active bowel sounds present. Musculoskeletal System: limbs with bilateral pitting pedal edema. Full distal pulses. Normal capillary refill. Neurological System: No discernable sensory deficit. No aphasia Psychiatric System: Conversation is rational Results - Labs CBC & BMP: 05/23/17 10:35 05/22/17 03:29 Lab Results: I have reviewed the past 24 hour labs Quality Measures - Stroke Symptom Onset Unknown: No
[2017-05-23 16:20] LABS: Lymphocytes,Pleural Fluid 78 %; Monocytes,Pleural Fluid 3 %; Neutrophils,Pleural Fluid 19 %; RBC,Pleural Fluid 3575 T/CUMM
[2017-05-23] MEDS: methylPREDNISolone SOD SUC 40 MG/1 ML VIAL IV SCH (16:29)
[2017-05-23] MEDS: LEVOFLOXACIN INJ 500 MG in PREMIX 1 EACH IV SCH (17:47)
[2017-05-23] MEDS: ATORVASTATIN 40 MG TABLET PO SCH (21:14)
[2017-05-23] MEDS: TAMSULOSIN 0.4 MG CAPSULE PO SCH (21:14)
[2017-05-24] MEDS: ALBUMIN 25% 25 GM in PREMIX 1 EACH IV SCH ×3 (00:11→15:20)
[2017-05-24] MEDS: ALBUTEROL/IPRATROPIUM 3 ML NEB RESP TX SCH ×5 (00:18→23:55)
[2017-05-24 03:52] LABS: Basophils % 0.1 % (0.0-0.8); Eosinophils % 0.1 % (0.00-10.9); Hematocrit 40.8 VOL% (42.0-52.0); Hemoglobin 13.7 GM/DL (14.0-18.0); Immature Granulocytes % 0.6 %; Immature Granulocytes Absolute 0.08 #; Lymphocytes # 1.1 10*3/uL (1.4-4.0); Lymphocytes % 8.5 % (21.2-54.2); Mean Corpuscular HGB Conc 33.6 GM/DL (32-36); Mean Corpuscular Hemoglobin 32 PG (27-34); Mean Corpuscular Volume 94.9 FL (87-102); Mean Platelet Volume 10.6 FL (9.6-12.0); Monocytes # 0.9 10*3/uL (0.11-0.8); Monocytes % 7.5 % (1.7-12.7); Neutrophils # 10.5 10*3/uL (1.4-7.4); Neutrophils % 83.2 % (38.7-73.9); Platelet Count 200 T/CUMM (130-400); Red Cell Distribution Width 12.7 % (9.3-17.3); White Blood Count 12.6 T/CUMM (4-12)
[2017-05-24 04:21] LABS: Magnesium 2.1 MG/DL (1.8-2.4); Osmolality,Calculated 298.4 MOS/KG (273-304); Potassium 3.7 MMOL/L (3.5-5.1)
[2017-05-24] MEDS: PIPERACILLIN/TAZOBACTAM 3,375 MG in SODIUM CHLORIDE 0.9% 100 ML IV SCH ×3 (05:03→21:55)
[2017-05-24] MEDS: methylPREDNISolone SOD SUC 40 MG/1 ML VIAL IV SCH ×2 (05:04→15:20)
[2017-05-24] MEDS: ASCORBIC ACID 500 MG TABLET PO SCH ×2 (08:28→21:25)
[2017-05-24] MEDS: ASPIRIN EC 81 MG TABLET PO SCH (08:28)
[2017-05-24] MEDS: POLYETHYLENE GLYCOL POWDER 17 GM PACK PO SCH ×2 (08:28→21:28)
[2017-05-24] MEDS: GLIMEPIRIDE 4 MG TABLET PO SCH ×2 (08:28→16:22)
[2017-05-24] MEDS: APIXABAN 5 MG TABLET PO SCH ×2 (08:28→21:25)
[2017-05-24] MEDS: PANTOPRAZOLE 40 MG TABLET PO SCH (08:28)
[2017-05-24] MEDS: DOCUSATE SODIUM 100 MG CAPSULE PO SCH ×2 (08:28→21:28)
[2017-05-24] MEDS: METOPROLOL TARTRATE 100 MG TABLET PO SCH ×2 (08:28→21:25)
[2017-05-24] MEDS: FUROSEMIDE 40 MG/4 ML VIAL IV SCH ×2 (08:29→15:20)
[2017-05-24] MEDS: INSULIN LISPRO 100 UNIT/ML SUBCUT SCH ×4 (08:29→21:24)
[2017-05-24] MEDS: INSULIN GLARGINE 100 UNIT/ML SUBCUT SCH (08:29)
--- NOTE | 2017-05-24 08:42 | XRay Report ---
XR chest 2V Date: 05/24/2017 2:41 AM History: Pneumonia, pleural effusion Comparison: 05/23/2017 Technique: PA and lateral chest Findings: The heart is minimally enlarged. Limited expiratory chest with progressive bilateral perihilar parenchymal findings extending to the lung bases with persistent small to moderate bilateral pleural effusions. Ill-defined areas of nodularity are noted with no acute osseous findings. Impression: Progressive bilateral pneumonia with increased atelectasis and persistent small to moderate bilateral pleural effusions. Ill-defined nodularity and continued follow-up chest x-ray is recommended to document clearing. PROCEDURE INTERPRETED AT [facility] DEPARTMENT OF RADIOLOGY Final Report Signed by: Dr. Sri Freeman
[2017-05-24] MEDS: metOLazone 5 MG TABLET PO SCH (08:44)
--- NOTE | 2017-05-24 12:12 | Cardiology Progress Note ---
Fer Hernandez Lesley, RIAN, am scribing for, and in the presence of, Job Gay MD 12:12. Assessment and Plan - Time spent with patient Time spent with patient: Greater than 30 minutes (record review, assessment, and documentation) (1) Anticoagulation adequate Status: Chronic Assessment and plan: SEE PLAN LISTED BELOW Current Visit: Yes (2) Atrial flutter with RVR Status: Resolved Assessment and plan: SEE PLAN LISTED BELOW Current Visit: Yes (3) Elevated LFTs Status: Acute Assessment and plan: SEE PLAN LISTED BELOW Current Visit: Yes (4) Hypertension Status: Chronic Assessment and plan: SEE PLAN LISTED BELOW Current Visit: Yes Qualifiers: Hypertension type: essential hypertension Qualified Code(s): I10 - Essential (primary) hypertension (5) Acute kidney injury Problem details: Most likely due to hypotensive/ischemic ATN, mild with preserved acidification. Continues to improve. eGFR 67cc/min Status: Acute Assessment and plan: SEE PLAN LISTED BELOW Current Visit: Yes (6) Congestive heart failure Status: Acute Assessment and plan: SEE PLAN LISTED BELOW Current Visit: Yes Cardiology - PN: Subj Interval history: COAL PICKER: Dr. 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 Cota is a 57-year-old WM, PMHx hypertension, diabetes, medical noncompliance. Admitted with shortness of breath, found to have typical atrial flutter with RVR, difficult rate control with mild fluid overload. Elevated LFTs, PENELOPE/CKD which has improved. He has improved with diuresis, med management , and is status post atrial flutter ablation. Echo: LVEF 40-45%, mild KVNG, mild TR/MR EKG: SR/ST 90s-100 05/18- ablation of typical atrial flutter (cavotricuspid isthmus linear lesion) May 23, 2017: The patient is sitting up in a chair. No oxygen in use, no complaints of dyspnea. He reports he is ambulatory in the room without the significant TRUJILLO he was having. Moderate bilateral pleural effusions, plan for thoracentesis this afternoon. Vital signs stable, telemetry monitoring reveals sinus rhythm rate 80 's. Labs pending, continue to monitor CHF, hypertension, kidney function, stable. May 24, 2017: The patient is doing well s/p thoracentesis on the right with removal of 700ml of pleural fluid. He reports he is breathing better, continues antibiotics and supplemental oxygen as needed. Vital signs stable, sinus rhythm with rate in the 70s s/p ablation. Continue Metoprolol 100mg bid & Eliquis. ROS: absent - chest pain, dyspnea gen - no acute distress IMPRESSION AND PLAN: AFLUTTER - Stable sinus rhythm post ablation 05/18/17. Continue beta sahil and Eliquis for one month. CHF - Continue IV Lasix, Spironolactone, and now metolazone, 700ml from thoracentesis on the right. Continue antibiotics, nebs, steroids , WBC 12.6, afebrile. ANTICOAGULATION - Continue anticoagulation with Eliquis one month if no reoccurence of arrythmia. May be held, if needed for thoracocentesis or similar procedure. He did not have an JIMMY thrombus on AQUILINO prior to the ablation HYPERTENSION -Continue to monitor and adjust meds accordingly. ELEVATED LFTS - continue to monitor, improving. ACUTE KIDNEY INJURY - creatinine 1.5, continue to monitor. Cardiology addendum Patient seen chart examined and discussed with nurse KAYLIE Castellano Status post right lung thoracentesis today. No temperature. Telemetry shows sinus rhythm rare PVC Blood pressure 136/80 White count 12.6 hemoglobin 13.7 Sodium 140 potassium 3.7 BUN 44 creatinine 1.50 Glucose 258 magnesium 2.1 Status post ablation 05/18/2017 for atrial flutter EF 40-45% by echo Plan Continue Lopressor 100 mg twice daily Continue Eliquis 5 mg twice daily Awaiting Gram stain, chemistries and culture thoracentesis fluid Plan Exam (Progress Note) - Constitutional Vitals: Period Temp Pulse Resp BP Sys/Sanches Pulse Ox Last 24 Hr 97 F-97.7 F 73-88 18-20 135-144/80-96 91-99 Exam: General: Appears well with no apparent distress. Pleasant and cooperative. Appears comfortable. HEENT: PERRL, normocephalic, atraumatic. Mucous membranes moist. No jaundice noted. Conjunctiva moist and clear, sclerae anicteric. Neck: No JVD, no thyromegaly or lymphadenopathy noted. No carotid bruit appreciated. Cardiac: Regular rate and rhythm. No murmur rub or gallop. PMI is nondisplaced. Lungs: Slight expiratory wheeze on the right, decreased breath sounds in bases, left more clear to auscultation. Oxygen per nasal cannula. Abdomen: Soft, bowel sounds normoactive. Nontender and distended, tight. No abdominal bruit or thrill noted. No masses noted. Musculoskeletal: Bilateral edema noted to lower extremities. Full range of motion is noted noted. Extremities: No clubbing, cyanosis noted. 2+ pitting edema to bilateral lower extremities. Upper extremity pulses 2+. Lower extremity pulses 2+. Capillary refill less than 3 seconds. Skin: Warm and dry. No unusual lesions or rashes. No skin breakdown appreciated. Neuro: Awake, alert and oriented 3. Moves all extremities well without hemiparesis or paralysis. No essential tremor is appreciated. Result/EKG - Labs CBC & BMP: 05/24/17 03:37 05/24/17 03:37 Lab Results: I have reviewed the past 24 hour labs Labs: Laboratory Results - last 24 hr 05/22/17 05/23/17 05/23/17 19:57 10:35 12:01 WBC 13.8 H RBC 4.41 Hgb 14.2 Hct 42.1 MCV 95.5 MCH 32 MCHC 33.7 RDW 12.7 Plt Count 218 MPV 10.4 Neut % (Auto) 92.7 H Lymph % (Auto) 3.3 L Dewey % (Auto) 3.1 Eos % (Auto) 0.0 Baso % (Auto) 0.1 Neut # (Auto) 12.8 H Lymph # (Auto) 0.5 L Dewey # (Auto) 0.4 Eos # (Auto) 0.0 Baso # (Auto) 0.0 Total Counted 100 Immature Gran % 0.8 Nucleated RBC % 0.1 Immature Gran # 0.11 Segmented Neutrophils 91 H Lymphocytes 8 L Monocytes 1 L Nucleated RBCs # 0.02 Platelet Estimate Adequate Immature Plt Fraction 0.0 Hypochromasia Slight Sodium Potassium Chloride Carbon Dioxide Anion Gap BUN Creatinine GFR Calculation BUN/Creatinine Ratio Glucose POC Glucose 182 H 339 H Calculated Osmolality Calcium Magnesium Fluid Total Protein Fluid Albumin Fluid LDH Pleural WBC Pleural RBC Pleural Tot Cell Ct Pleural Neutrophils Pleural Lymphocytes Pleural Monocytes Pleural Glucose 05/23/17 05/23/17 05/23/17 14:00 14:00 14:00 WBC RBC Hgb Hct MCV MCH MCHC RDW Plt Count MPV Neut % (Auto) Lymph % (Auto) Dewey % (Auto) Eos % (Auto) Baso % (Auto) Neut # (Auto) Lymph # (Auto) Dewey # (Auto) Eos # (Auto) Baso # (Auto) Total Counted Immature Gran % Nucleated RBC % Immature Gran # Segmented Neutrophils Lymphocytes Monocytes Nucleated RBCs # Platelet Estimate Immature Plt Fraction Hypochromasia Sodium Potassium Chloride Carbon Dioxide Anion Gap BUN Creatinine GFR Calculation BUN/Creatinine Ratio Glucose POC Glucose Calculated Osmolality Calcium Magnesium Fluid Total Protein Fluid Albumin 1.0 Fluid LDH Pleural WBC 139 Pleural RBC [address] 100 Pleural Neutrophils 19 Pleural Lymphocytes 78 Pleural Monocytes 3 Pleural Glucose 317 05/23/17 05/23/17 05/23/17 14:00 14:00 15:55 WBC RBC Hgb Hct MCV MCH MCHC RDW Plt Count MPV Neut % (Auto) Lymph % (Auto) Dewey % (Auto) Eos % (Auto) Baso % (Auto) Neut # (Auto) Lymph # (Auto) Dewey # (Auto) Eos # (Auto) Baso # (Auto) Total Counted Immature Gran % Nucleated RBC % Immature Gran # Segmented Neutrophils Lymphocytes Monocytes Nucleated RBCs # Platelet Estimate Immature Plt Fraction Hypochromasia Sodium Potassium Chloride Carbon Dioxide Anion Gap BUN Creatinine GFR Calculation BUN/Creatinine Ratio Glucose POC Glucose 252 H Calculated Osmolality Calcium Magnesium Fluid Total Protein < 2.0 Fluid Albumin Fluid LDH 68 Pleural WBC Pleural RBC Pleural Tot Cell Ct Pleural Neutrophils Pleural Lymphocytes Pleural Monocytes Pleural Glucose 05/23/17 05/24/17 05/24/17 19:39 03:37 03:37 WBC 12.6 H RBC 4.30 Hgb 13.7 L Hct 40.8 L MCV 94.9 MCH 32 MCHC 33.6 RDW 12.7 Plt Count 200 MPV 10.6 Neut % (Auto) 83.2 H Lymph % (Auto) 8.5 L Dewey % (Auto) 7.5 Eos % (Auto) 0.1 Baso % (Auto) 0.1 Neut # (Auto) 10.5 H Lymph # (Auto) 1.1 L Dewey # (Auto) 0.9 H Eos # (Auto) 0.0 Baso # (Auto) 0.0 Total Counted Immature Gran % 0.6 Nucleated RBC % 0.0 Immature Gran # 0.08 Segmented Neutrophils Lymphocytes Monocytes Nucleated RBCs # 0.00 Platelet Estimate Immature Plt Fraction 0.0 Hypochromasia Sodium 140 Potassium 3.7 Chloride 100 Carbon Dioxide 30 Anion Gap 13.7 BUN 44 H Creatinine 1.50 H GFR Calculation 67 BUN/Creatinine Ratio 29.00 H Glucose 258 H POC Glucose 138 H Calculated Osmolality 298.4 Calcium 9.0 Magnesium 2.1 Fluid Total Protein Fluid Albumin Fluid LDH Pleural WBC Pleural RBC Pleural Tot Cell Ct Pleural Neutrophils Pleural Lymphocytes Pleural Monocytes Pleural Glucose 05/24/17 07:15 WBC RBC Hgb Hct MCV MCH MCHC RDW Plt Count MPV Neut % (Auto) Lymph % (Auto) Dewey % (Auto) Eos % (Auto) Baso % (Auto) Neut # (Auto) Lymph # (Auto) Dewey # (Auto) Eos # (Auto) Baso # (Auto) Total Counted Immature Gran % Nucleated RBC % Immature Gran # Segmented Neutrophils Lymphocytes Monocytes Nucleated RBCs # Platelet Estimate Immature Plt Fraction Hypochromasia Sodium Potassium Chloride Carbon Dioxide Anion Gap BUN Creatinine GFR Calculation BUN/Creatinine Ratio Glucose POC Glucose 230 H Calculated Osmolality Calcium Magnesium Fluid Total Protein Fluid Albumin Fluid LDH Pleural WBC Pleural RBC Pleural Tot Cell Ct Pleural Neutrophils Pleural Lymphocytes Pleural Monocytes Pleural Glucose - Diagnostic Findings Procedure: Chest x-ray: report reviewed by me - EKG EKG results: interpreted by me, sinus rhythm Quality Measures - Stroke Symptom Onset Unknown: No I, Job Gay MD, personally performed the services described in this documentation, ascribed by Sonali Monroe NP in my presence, and it is both accurate and complete .
--- NOTE | 2017-05-24 13:39 | Pulmonology Progress Note ---
Pulmonary - PN: Subj Interval history: Mr. Cota is a 57 year old white male came in last week with increasing shortness of breath and have atrial arrhythmias. He apparently was having considerable swelling of his abdomen and legs also. He said he cannot talk or walk anywhere without being short of breath. He says he is feeling better now. He has been monitored and had rapid atrial fibrillation but is doing better now. He does have some mild left ventricular dysfunction. He says he is more comfortable now and not having any chest pain. He still gets short of breath easily but is better. He is not having any pain and not coughing much now. Yesterday we did do a right thoracentesis and the pleural fluid was a transudate. He tolerated fairly well and says he is breathing better. His chest x-ray still looks like heart failure however. Will try to increase his diuretic therapy. Exam (Progress Note) - Constitutional Vitals: Period Temp Pulse Resp BP Sys/Sanches Pulse Ox Last 24 Hr 97 F-97.7 F 73-81 18-20 135-158/80-88 91-99 Exam: General appearance: no acute distress, over weight, he is relatively comfortable sitting up in bed. He looks like he feels better overall. - Head Head exam: Present: normal inspection, normocephalic - Eye Eye exam: Present: EOMI. Absent: scleral icterus Pupils: Present: GAGE - ENT ENT exam: Present: normal exam - Neck Neck exam: Absent: lymphadenopathy, thyromegaly - Respiratory Respiratory exam: Present: He has fairly good breath sounds bilaterally with some slight crackles in the bases. He is not wheezing any. - Cardiovascular Cardiovascular exam: Present: JVD, regular rate and rhythm, systolic murmur (He has a soft murmur). Absent: gallop - GI/Abdominal GI/Abdominal exam: Present: distended, soft. Absent: organomegaly, tenderness - Extremities Exam Extremities exam: Present: His leg swelling is better overall. - Neurological Exam Neurological exam: Present: alert, oriented X3, CN II-XII intact - Psychiatric Psychiatric exam: Present: normal affect, normal mood - Skin Skin exam: Present: warm, dry Results - Labs CBC & BMP: 05/24/17 03:37 05/24/17 03:37 - Diagnostic Findings Procedure: Chest x-ray: image reviewed by me, report reviewed by me (Chest x- ray still looks like heart failure.) Assessment and Plan (1) Congestive heart failure Status: Acute Assessment and plan: The patient's clinical picture suggest congestive heart failure. His pleural fluid is a transudate. His chest x-ray still looks congested. Will add Zaroxolyn. Current Visit: Yes (2) Hypertension Status: Chronic Assessment and plan: His blood pressure is still toward the high side. Current Visit: Yes Qualifiers: Hypertension type: essential hypertension Qualified Code(s): I10 - Essential (primary) hypertension (3) Atrial flutter with RVR Status: Resolved Assessment and plan: His heart rate is under better control. His heart rate looks much better. Current Visit: Yes (4) Diabetes mellitus Status: Chronic Assessment and plan: The patient apparently has problems with his diabetes. He looks like he has several organs affected. His glucose is 262 this morning. 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 Continues to improve. eGFR 67cc/min Status: Acute Assessment and plan: His creatinine is little better at 1.5. Current Visit: Yes
--- NOTE | 2017-05-24 14:43 | Hospitalist Progress Note ---
Assessment and Plan (1) Atrial flutter Status: Acute Assessment and plan: He is converted to normal sinus rhythm after ablation by cardiology. He is anticoagulated with Eliquis and also on aspirin Current Visit: Yes Qualifiers: Atrial flutter type: typical Qualified Code(s): I48.3 - Typical atrial flutter (2) Elevated LFTs Status: Acute Assessment and plan: Hepatitis panel negative. Improving with diuresis. Likely secondary to passive congestion of the liver and anasarca. Current Visit: Yes (3) Hyperbilirubinemia Status: Acute Current Visit: Yes (4) Hypertension Status: Chronic Current Visit: Yes Qualifiers: Hypertension type: essential hypertension Qualified Code(s): I10 - Essential (primary) hypertension (5) Atrial flutter with RVR Status: Resolved Assessment and plan: Heart rate controlled. Started on metoprolol. Cardiology consult noted. Ablation performed. Anticoagulated with Eliquis. Current Visit: Yes (6) Diabetes mellitus Status: Chronic Assessment and plan: Hemoglobin A1c 11.3. Patient has not been on medications for several months. Start glyburide and add Lantus. Continue Accu-Cheks and sliding scale insulin. 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 Continues to improve. eGFR 67cc/min Status: Acute Assessment and plan: We will obtain a 24-hour urine to evaluate protein loss Current Visit: Yes (8) Pneumonia Status: Acute Assessment and plan: Started on antibiotics including Zosyn and Levaquin based on CT scan of the chest showing bilateral infiltrates versus fluid. Current Visit: Yes (9) Peripheral edema Status: Acute Assessment and plan: Continue albumin with Lasix and Aldactone. Monitor for improvement. 24-hour urine collection reviewed. No evidence of nephrotic syndrome Current Visit: Yes (10) Pleural effusion Status: Acute Assessment and plan: Continue diuresis with Lasix and Aldactone. Consider thoracentesis if no improvement. Albumin added for improved oncotic pressures. Current Visit: Yes (11) Anasarca Status: Acute Assessment and plan: Continue diuresis with albumin, Lasix, Aldactone. Current Visit: Yes Hospitalist: Subjective Interval history: Patient seen and examined. No acute events overnight. Case discussed with nursing staff. Labs reviewed. He continues to improve slowly but his chest x- ray still has edema versus infiltrate. He has been afebrile and is receiving IV antibiotics. Fluid analysis shows transudate without evidence of infection or malignancy. Albumin appears to be helping with his diuresis as his renal function has not worsened despite Lasix and Aldactone. His urine looks dilute. Exam - Constitutional Vitals: Period Temp Pulse Resp BP Sys/Sanches Pulse Ox Last 24 Hr 97 F-97.7 F 73-81 18-20 135-158/80-88 91-99 Exam: Constitutional System: No distress. No tremulousness. Head: Normocephalic, atraumatic. Ears, Nose and Throat System: No pain or tenderness. No epistaxis or discharge Eyes System: Pupils equal, round, and reactive. Extraocular muscles intact. Neck: Supple, without adenopathy, No jugular venous distention. No thyromegaly, neck mass, or prior surgery apparent. Respiratory System: Chest decreased breath sounds at the bases with rales. Minimal wheezing. Cardiovascular System: Heart with regular rate and rhythm. No murmur. GI System: Abdomen soft, nontender. Normo active bowel sounds present. Musculoskeletal System: limbs with bilateral pitting pedal edema. Full distal pulses. Normal capillary refill. Anasarca noted Neurological System: No discernable sensory deficit. No aphasia Psychiatric System: Conversation is rational Results - Labs CBC & BMP: 05/24/17 03:37 05/24/17 03:37 Lab Results: I have reviewed the past 24 hour labs Quality Measures - Stroke Symptom Onset Unknown: No
[2017-05-24] MEDS: LEVOFLOXACIN INJ 500 MG in PREMIX 1 EACH IV SCH (16:33)
[2017-05-24] MEDS: ATORVASTATIN 40 MG TABLET PO SCH (21:25)
[2017-05-24] MEDS: TAMSULOSIN 0.4 MG CAPSULE PO SCH (21:26)
[2017-05-25] MEDS: ALBUMIN 25% 25 GM in PREMIX 1 EACH IV SCH ×3 (00:07→16:06)
[2017-05-25] MEDS: methylPREDNISolone SOD SUC 40 MG/1 ML VIAL IV SCH (03:28)
[2017-05-25 05:02] LABS: Basophils % 0.1 % (0.0-0.8); Eosinophils # 0.1 10*3/uL (0.0-0.87); Eosinophils % 0.5 % (0.00-10.9); Hematocrit 39.9 VOL% (42.0-52.0); Hemoglobin 13.6 GM/DL (14.0-18.0); Immature Granulocytes % 0.6 %; Immature Granulocytes Absolute 0.07 #; Lymphocytes # 1.3 10*3/uL (1.4-4.0); Lymphocytes % 11.1 % (21.2-54.2); Mean Corpuscular HGB Conc 34.1 GM/DL (32-36); Mean Corpuscular Hemoglobin 32 PG (27-34); Mean Corpuscular Volume 94.8 FL (87-102); Mean Platelet Volume 10.5 FL (9.6-12.0); Monocytes # 0.9 10*3/uL (0.11-0.8); Monocytes % 7.8 % (1.7-12.7); Neutrophils # 9.5 10*3/uL (1.4-7.4); Neutrophils % 79.9 % (38.7-73.9); Platelet Count 175 T/CUMM (130-400); Red Blood Count 4.21 MC/CUMM (3.8-5.5); Red Cell Distribution Width 12.6 % (9.3-17.3); White Blood Count 11.9 T/CUMM (4-12)
[2017-05-25] MEDS: PIPERACILLIN/TAZOBACTAM 3,375 MG in SODIUM CHLORIDE 0.9% 100 ML IV SCH (05:20)
[2017-05-25] MEDS: ALBUTEROL/IPRATROPIUM 3 ML NEB RESP TX SCH ×3 (07:49→18:55)
[2017-05-25] MEDS: ASPIRIN EC 81 MG TABLET PO SCH (08:48)
[2017-05-25] MEDS: ASCORBIC ACID 500 MG TABLET PO SCH ×2 (08:48→20:48)
[2017-05-25] MEDS: metOLazone 5 MG TABLET PO SCH (08:48)
[2017-05-25] MEDS: APIXABAN 5 MG TABLET PO SCH ×2 (08:48→20:45)
[2017-05-25] MEDS: GLIMEPIRIDE 4 MG TABLET PO SCH ×2 (08:49→16:06)
[2017-05-25] MEDS: INSULIN LISPRO 100 UNIT/ML SUBCUT SCH ×4 (08:49→20:46)
[2017-05-25] MEDS: PANTOPRAZOLE 40 MG TABLET PO SCH (08:49)
[2017-05-25] MEDS: METOPROLOL TARTRATE 100 MG TABLET PO SCH ×2 (08:49→20:45)
[2017-05-25] MEDS: INSULIN GLARGINE 100 UNIT/ML SUBCUT SCH (08:50)
[2017-05-25] MEDS: FUROSEMIDE 40 MG/4 ML VIAL IV SCH ×2 (08:51→15:20)
[2017-05-25] MEDS: DOCUSATE SODIUM 100 MG CAPSULE PO SCH ×2 (08:51→20:45)
[2017-05-25] MEDS: POLYETHYLENE GLYCOL POWDER 17 GM PACK PO SCH ×2 (08:51→20:46)
[2017-05-25 09:24] LABS: Calcium 9.2 MG/DL (8.5-10.1); Magnesium 2.1 MG/DL (1.8-2.4); Osmolality,Calculated 290.8 MOS/KG (273-304); Potassium 3.4 MMOL/L (3.5-5.1)
--- NOTE | 2017-05-25 10:23 | Cardiology Progress Note ---
Fer Hernandez Lesley, RIAN, am scribing for, and in the presence of, Job Gay MD 10:22. Assessment and Plan - Time spent with patient Time spent with patient: Greater than 30 minutes (Record review, assessment, documentation) (1) Anticoagulation adequate Status: Chronic Assessment and plan: SEE PLAN LISTED BELOW Current Visit: Yes (2) Atrial flutter with RVR Status: Resolved Assessment and plan: SEE PLAN LISTED BELOW Current Visit: Yes (3) Elevated LFTs Status: Acute Assessment and plan: SEE PLAN LISTED BELOW Current Visit: Yes (4) Hypertension Status: Chronic Assessment and plan: SEE PLAN LISTED BELOW Current Visit: Yes Qualifiers: Hypertension type: essential hypertension Qualified Code(s): I10 - Essential (primary) hypertension (5) Acute kidney injury Problem details: Most likely due to hypotensive/ischemic ATN, mild with preserved acidification. Continues to improve. eGFR 67cc/min Status: Acute Assessment and plan: SEE PLAN LISTED BELOW Current Visit: Yes (6) Congestive heart failure Status: Acute Assessment and plan: SEE PLAN LISTED BELOW Current Visit: Yes Cardiology - PN: Subj Interval history: SUMMARY: Mr. Cota is a 57-year-old WM, PMHx hypertension, diabetes, medical noncompliance. Admitted with shortness of breath, found to have typical atrial flutter with RVR, difficult rate control with mild fluid overload. Elevated LFTs, PENELOPE/CKD which has improved. He has improved with diuresis, med management , and is status post atrial flutter ablation. Echo: LVEF 40-45%, mild KVNG, mild TR/MR EKG: SR/ST 90s-100 05/18- ablation of typical atrial flutter (cavotricuspid isthmus linear lesion) May 23, 2017: The patient is sitting up in a chair. No oxygen in use, no complaints of dyspnea. He reports he is ambulatory in the room without the significant TRUJILLO he was having. Moderate bilateral pleural effusions, plan for thoracentesis this afternoon. Vital signs stable, telemetry monitoring reveals sinus rhythm rate 80 's. Labs pending, continue to monitor CHF, hypertension, kidney function, stable. May 24, 2017: The patient is doing well s/p thoracentesis on the right with removal of 700ml of pleural fluid. He reports he is breathing better, continues antibiotics and supplemental oxygen as needed. Vital signs stable, sinus rhythm with rate in the 70s s/p ablation. Continue Metoprolol 100mg bid & Eliquis. May 25, 2017: Patient did well overnight, vital signs stable. Remains in sinus rhythm, rate in the 70s. Continue treatment with antibiotics, steroids, nebs. Labs reviewed today: WBCs down to 11.9, hemoglobin and hematocrit stable. Glucose 232, likely due to steroids. BMP results pending, will continue to monitor electrolytes with continue diuresing. Continue monitoring hypertension, renal insufficiency, and cardiac arrhythmia status post ablation now in sinus rhythm. All of these conditions are stable. Pleural fluid fungal smear, culture all negative at final. Blood cultures negative at 3 days. ROS: absent - chest pain gen - no acute distress present - mild dyspnea with exertion IMPRESSION AND PLAN: AFLUTTER - Stable sinus rhythm post ablation 05/18/17. Continue beta sahil and Eliquis for one month. CHF - Continue IV Lasix, Spironolactone, and now metolazone, 700ml from thoracentesis on the right. Continue antibiotics, nebs, steroids , WBC 11.9, afebrile. ANTICOAGULATION - Continue anticoagulation with Eliquis one month if no reoccurence of arrythmia. May be held, if needed for thoracocentesis or similar procedure. He did not have an JIMMY thrombus on AQUILINO prior to the ablation HYPERTENSION -Continue to monitor and adjust meds accordingly, borderline likely due to steroids and nebs. ELEVATED LFTS - continue to monitor, improving. ACUTE KIDNEY INJURY - creatinine 1.5, continue to monitor. Cardiology addendum. Status post 700 cc right lung thoracentesis yesterday. No temperature. Dry cough. Telemetry shows steady sinus rhythm O2 sat 95 on 2 L cannula blood pressure 144/80 Decreased breath sounds with bibasilar crackles Regular rhythm no gallop Abdomen benign No leg edema Lab data White count 11.9 hemoglobin 13.6 Sodium 137 potassium 3.4 chloride 96 CO2 34 BUN 43 creatinine 1.40 Plan Lasix 40 mg IV twice daily Zaroxolyn 10 mg every morning BMP in a.m. Levofloxacin and Pipracillin 40 mEq KCl twice daily Exam (Progress Note) - Constitutional Vitals: Period Temp Pulse Resp BP Sys/Sanches Pulse Ox Last 24 Hr 97.0 F-97.7 F 74-84 17-20 130-159/77-85 93-98 Exam: General: Appears well with no apparent distress. Pleasant and cooperative. Appears comfortable. HEENT: PERRL, normocephalic, atraumatic. Mucous membranes moist. No jaundice noted. Conjunctiva moist and clear, sclerae anicteric. Neck: No JVD, no thyromegaly or lymphadenopathy noted. No carotid bruit appreciated. Cardiac: Regular rate and rhythm. No murmur rub or gallop. PMI is nondisplaced. Lungs: Slight expiratory wheeze on the right, decreased breath sounds in bases, left more clear to auscultation. Oxygen per nasal cannula. Abdomen: Soft, bowel sounds normoactive. Nontender and distended, tight. No abdominal bruit or thrill noted. No masses noted. Musculoskeletal: Bilateral edema noted to lower extremities. Full range of motion is noted noted. Extremities: No clubbing, cyanosis noted. 2+ pitting edema to bilateral lower extremities. Upper extremity pulses 2+. Lower extremity pulses 2+. Capillary refill less than 3 seconds. Skin: Warm and dry. No unusual lesions or rashes. No skin breakdown appreciated. Neuro: Awake, alert and oriented 3. Moves all extremities well without hemiparesis or paralysis. No essential tremor is appreciated. Result/EKG - Labs CBC & BMP: 05/25/17 04:46 05/25/17 04:45 Lab Results: I have reviewed the past 24 hour labs Labs: Laboratory Results - last 24 hr 05/24/17 05/24/17 05/24/17 11:01 15:31 19:40 WBC RBC Hgb Hct MCV MCH MCHC RDW Plt Count MPV Neut % (Auto) Lymph % (Auto) [place] % (Auto) Eos % (Auto) Baso % (Auto) Neut # (Auto) Lymph # (Auto) [place] # (Auto) Eos # (Auto) Baso # (Auto) Immature Gran % Nucleated RBC % Immature Gran # Nucleated RBCs # Immature Plt Fraction POC Glucose 262 H 296 H 279 H 05/25/17 05/25/17 05/25/17 04:46 05:20 07:51 WBC 11.9 RBC 4.21 Hgb 13.6 L Hct 39.9 L MCV 94.8 MCH 32 MCHC 34.1 RDW 12.6 Plt Count 175 MPV 10.5 Neut % (Auto) 79.9 H Lymph % (Auto) 11.1 L [place] % (Auto) 7.8 Eos % (Auto) 0.5 Baso % (Auto) 0.1 Neut # (Auto) 9.5 H Lymph # (Auto) 1.3 L [place] # (Auto) 0.9 H Eos # (Auto) 0.1 Baso # (Auto) 0.0 Immature Gran % 0.6 Nucleated RBC % 0.0 Immature Gran # 0.07 Nucleated RBCs # 0.00 Immature Plt Fraction 0.0 POC Glucose 219 H 232 H - EKG EKG results: interpreted by me, sinus rhythm Quality Measures - Stroke Symptom Onset Unknown: No I, Job Gay MD, personally performed the services described in this documentation, ascribed by Sonali Monroe NP in my presence, and it is both accurate and complete .
--- NOTE | 2017-05-25 10:56 | Hospitalist Progress Note ---
Assessment and Plan (1) Atrial flutter Status: Acute Assessment and plan: He is converted to normal sinus rhythm after ablation by cardiology. He is anticoagulated with Eliquis and also on aspirin Current Visit: Yes Qualifiers: Atrial flutter type: typical Qualified Code(s): I48.3 - Typical atrial flutter (2) Elevated LFTs Status: Acute Assessment and plan: Hepatitis panel negative. Improving with diuresis. Likely secondary to passive congestion of the liver and anasarca. Current Visit: Yes (3) Hyperbilirubinemia Status: Acute Current Visit: Yes (4) Hypertension Status: Chronic Current Visit: Yes Qualifiers: Hypertension type: essential hypertension Qualified Code(s): I10 - Essential (primary) hypertension (5) Atrial flutter with RVR Status: Resolved Assessment and plan: Heart rate controlled. Started on metoprolol. Cardiology consult noted. Ablation performed. Anticoagulated with Eliquis. Current Visit: Yes (6) Diabetes mellitus Status: Chronic Assessment and plan: Hemoglobin A1c 11.3. Patient has not been on medications for several months. Start glyburide and add Lantus. Continue Accu-Cheks and sliding scale insulin. 05/21/17 Increase Lantus Increase sliding scale Current Visit: Yes Qualifiers: Diabetes mellitus type: type 2 Diabetes mellitus complication status: with kidney complications Diabetes mellitus winemaker insulin use: without prison use (7) Acute kidney injury Problem details: Most likely due to hypotensive/ischemic ATN, mild with preserved acidification. Continues to improve. eGFR 67cc/min Status: Acute Assessment and plan: We will obtain a 24-hour urine to evaluate protein loss Current Visit: Yes (8) Pneumonia Status: Acute Assessment and plan: De-escalate antibiotics to Levaquin 750 p.o. daily. Current Visit: Yes (9) Peripheral edema Status: Acute Assessment and plan: Continue albumin with Lasix and Aldactone. Monitor for improvement. 24-hour urine collection reviewed. No evidence of nephrotic syndrome Current Visit: Yes (10) Pleural effusion Status: Acute Assessment and plan: Continue diuresis with Lasix and Aldactone. Consider thoracentesis if no improvement. Albumin added for improved oncotic pressures. Current Visit: Yes (11) Anasarca Status: Acute Assessment and plan: Continue diuresis with albumin, Lasix, Aldactone. Current Visit: Yes Hospitalist: Subjective Interval history: Patient seen and examined. No acute events overnight. Case discussed with nursing staff. Labs reviewed. He reports continued improvement in his symptoms. Cardiology notes reviewed. I will de-escalate antibiotic therapy and discontinue Zosyn. Continue oral Levaquin. Change Solu-Medrol to oral prednisone. The patient continues to diurese well. Continue albumin infusion while receiving IV Lasix. Exam - Constitutional Vitals: Period Temp Pulse Resp BP Sys/Sanches Pulse Ox Last 24 Hr 97.0 F-97.7 F 74-84 17-20 130-159/77-85 93-98 Exam: Constitutional System: No distress. No tremulousness. Head: Normocephalic, atraumatic. Ears, Nose and Throat System: No pain or tenderness. No epistaxis or discharge Eyes System: Pupils equal, round, and reactive. Extraocular muscles intact. Neck: Supple, without adenopathy, No jugular venous distention. No thyromegaly, neck mass, or prior surgery apparent. Respiratory System: Chest decreased breath sounds at the bases with rales. No wheezing. Cardiovascular System: Heart with regular rate and rhythm. No murmur. GI System: Abdomen soft, nontender. Normo active bowel sounds present. Musculoskeletal System: limbs with bilateral pitting pedal edema. Full distal pulses. Normal capillary refill. Anasarca noted Neurological System: No discernable sensory deficit. No aphasia Psychiatric System: Conversation is rational Results - Labs CBC & BMP: 05/25/17 04:46 05/25/17 04:45 Lab Results: I have reviewed the past 24 hour labs Quality Measures - Stroke Symptom Onset Unknown: No
[2017-05-25] MEDS ORDERED: POTASSIUM CHLORIDE 20 MEQ TABLET PO ONE (11:22)
[2017-05-25] MEDS: LEVOFLOXACIN 750 MG TABLET PO SCH (12:03)
--- NOTE | 2017-05-25 12:29 | Pulmonology Progress Note ---
Pulmonary - PN: Subj Interval history: Mr. Cota is a 57 year old white male came in last week with increasing shortness of breath and have atrial arrhythmias. He apparently was having considerable swelling of his abdomen and legs also. He said he cannot talk or walk anywhere without being short of breath. He says he is feeling better now. He has been monitored and had rapid atrial fibrillation but is doing better now. He does have some mild left ventricular dysfunction. He says he is more comfortable now and not having any chest pain. He says he had a fairly good night although he did not sleep that much. He is able to lie flat in bed without increased shortness of breath. He feels like his breathing is much better overall. His weight is reported down and he says he is voiding a good bit. Overall he seems to be relatively stable. Exam (Progress Note) - Constitutional Vitals: Period Temp Pulse Resp BP Sys/Sanches Pulse Ox Last 24 Hr 97.0 F-97.7 F 74-84 17-20 130-159/72-85 93-98 Exam: General appearance: no acute distress, over weight, he is comfortable lying flat in bed this morning. - Head Head exam: Present: normal inspection, normocephalic - Eye Eye exam: Present: EOMI. Absent: scleral icterus Pupils: Present: GAGE - ENT ENT exam: Present: normal exam - Neck Neck exam: Absent: lymphadenopathy, thyromegaly - Respiratory Respiratory exam: Present: He has fairly good breath sounds bilaterally with some slight crackles in the bases. He is not wheezing any. He looks like he is breathing better today. - Cardiovascular Cardiovascular exam: Present: JVD, regular rate and rhythm, systolic murmur (He has a soft murmur). Absent: gallop - GI/Abdominal GI/Abdominal exam: Present: distended, soft. Absent: organomegaly, tenderness - Extremities Exam Extremities exam: Present: His leg swelling is better overall. - Neurological Exam Neurological exam: Present: alert, oriented X3, CN II-XII intact - Psychiatric Psychiatric exam: Present: normal affect, normal mood - Skin Skin exam: Present: warm, dry Results - Labs CBC & BMP: 05/25/17 04:46 05/25/17 04:45 Assessment and Plan (1) Congestive heart failure Status: Acute Assessment and plan: The patient's clinical picture suggest congestive heart failure. His pleural fluid is a transudate. He does seem to be breathing better and diuresing fairly well. His weight is reporting down today. Current Visit: Yes (2) Hypertension Status: Chronic Assessment and plan: His blood pressure looks better now. Current Visit: Yes Qualifiers: Hypertension type: essential hypertension Qualified Code(s): I10 - Essential (primary) hypertension (3) Atrial flutter with RVR Status: Resolved Assessment and plan: His heart rate is much better and looks like he is in a regular rhythm now. Current Visit: Yes (4) Diabetes mellitus Status: Chronic Assessment and plan: The patient apparently has problems with his diabetes. He looks like he has several organs affected. His glucose is 272 this morning. His steroids have been cut back. 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 Continues to improve. eGFR 67cc/min Status: Acute Assessment and plan: His creatinine is little better at 1.4. Current Visit: Yes
--- NOTE | 2017-05-25 13:10 | Order Completion Report ---
See report scanned to EMR
[2017-05-25] MEDS: SIMETHICONE CHEW 125 MG TABLET PO PRN (13:12)
[2017-05-25] MEDS: POTASSIUM CHLORIDE 20 MEQ TABLET PO SCH (20:45)
[2017-05-25] MEDS: TAMSULOSIN 0.4 MG CAPSULE PO SCH (20:45)
[2017-05-25] MEDS: ZALEPLON 5 MG CAPSULE PO PRN (20:45)
[2017-05-25] MEDS: ATORVASTATIN 40 MG TABLET PO SCH (20:45)
[2017-05-26] MEDS: ALBUTEROL/IPRATROPIUM 3 ML NEB RESP TX SCH ×4 (00:10→20:34)
[2017-05-26] MEDS: ALBUMIN 25% 25 GM in PREMIX 1 EACH IV SCH ×3 (01:18→15:40)
[2017-05-26 04:40] LABS: Basophils % 0.1 % (0.0-0.8); Eosinophils # 0.3 10*3/uL (0.0-0.87); Eosinophils % 2.4 % (0.00-10.9); Hematocrit 41.1 VOL% (42.0-52.0); Immature Granulocytes % 0.4 %; Immature Granulocytes Absolute 0.05 #; Lymphocytes # 2.2 10*3/uL (1.4-4.0); Lymphocytes % 17.6 % (21.2-54.2); Mean Corpuscular HGB Conc 34.1 GM/DL (32-36); Mean Corpuscular Hemoglobin 32 PG (27-34); Mean Corpuscular Volume 94.1 FL (87-102); Mean Platelet Volume 11.3 FL (9.6-12.0); Monocytes # 1.4 10*3/uL (0.11-0.8); Monocytes % 11.5 % (1.7-12.7); Neutrophils # 8.5 10*3/uL (1.4-7.4); Platelet Count 186 T/CUMM (130-400); Red Blood Count 4.37 MC/CUMM (3.8-5.5); Red Cell Distribution Width 12.3 % (9.3-17.3); White Blood Count 12.6 T/CUMM (4-12)
[2017-05-26 05:14] LABS: Calcium 9.5 MG/DL (8.5-10.1); Osmolality,Calculated 294.5 MOS/KG (273-304); Potassium 3.6 MMOL/L (3.5-5.1)
--- NOTE | 2017-05-26 09:11 | XRay Report ---
History is congestive failure Chest, 2 views Comparison 05/24/2017 The heart is mildly enlarged. There may mild patchy basilar pulmonary opacities with improvement in the interval. Small underlying effusions remain. Impression: Interval improvement with mild residual basilar infiltrates versus edema and small effusions PROCEDURE INTERPRETED AT [facility] DEPARTMENT OF RADIOLOGY Final Report Signed by: Dr. Cydney Wu
--- NOTE | 2017-05-26 09:32 | Pulmonology Progress Note ---
Pulmonary - PN: Subj Interval history: Mr. Cota is a 57 year old white male came in last week with increasing shortness of breath and have atrial arrhythmias. He apparently was having considerable swelling of his abdomen and legs also. He said he cannot talk or walk anywhere without being short of breath. He says he is feeling better now. He has been monitored and had rapid atrial fibrillation but is doing better now. He does have some mild left ventricular dysfunction. He says he is more comfortable now and not having any chest pain. The patient continues to diurese fairly well and his weight is down. He feels like he is been able to do more activity. He feels like his shortness of breath is much better. His chest x-ray does look better today. His CHF continues to improve. He does complain of a little bit of sore throat. Exam (Progress Note) - Constitutional Vitals: Period Temp Pulse Resp BP Sys/Sanches Pulse Ox Last 24 Hr 96.0 F-97.7 F 71-86 18-20 98-149/53-88 92-99 Exam: General appearance: no acute distress, over weight, he is comfortable sitting up today. His weight looks much better. - Head Head exam: Present: normal inspection, normocephalic - Eye Eye exam: Present: EOMI. Absent: scleral icterus Pupils: Present: GAGE - ENT ENT exam: Present: normal exam - Neck Neck exam: Absent: lymphadenopathy, thyromegaly - Respiratory Respiratory exam: Present: He has fairly good breath sounds bilaterally with some slight crackles in the bases. Overall his lungs sound better. - Cardiovascular Cardiovascular exam: Present: JVD, regular rate and rhythm, systolic murmur (He has a soft murmur). Absent: gallop - GI/Abdominal GI/Abdominal exam: Present: distended, soft. Absent: organomegaly, tenderness - Extremities Exam Extremities exam: Present: His leg swelling has basically resolved. - Neurological Exam Neurological exam: Present: alert, oriented X3, CN II-XII intact - Psychiatric Psychiatric exam: Present: normal affect, normal mood - Skin Skin exam: Present: warm, dry Results - Labs CBC & BMP: 05/26/17 03:06 05/26/17 03:06 - Diagnostic Findings Procedure: Chest x-ray: image reviewed by me, report reviewed by me (Chest x- ray looks much better with just some minimal changes in the bases.) Assessment and Plan (1) Congestive heart failure Status: Acute Assessment and plan: The patient's clinical picture suggest congestive heart failure. His pleural fluid is a transudate. He is breathing better and his weight is down. His chest x-ray is improving. Current Visit: Yes (2) Hypertension Status: Chronic Assessment and plan: His blood pressure looks better now. Current Visit: Yes Qualifiers: Hypertension type: essential hypertension Qualified Code(s): I10 - Essential (primary) hypertension (3) Atrial flutter with RVR Status: Resolved Assessment and plan: His heart rate is much better and he is still in a regular rhythm. Current Visit: Yes (4) Diabetes mellitus Status: Chronic Assessment and plan: The patient apparently has problems with his diabetes. He looks like he has several organs affected. His glucose is 196 this morning. His steroids have been cut back. 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 Continues to improve. eGFR 67cc/min Status: Acute Assessment and plan: His creatinine is 1.6 today. Current Visit: Yes
[2017-05-26] MEDS: INSULIN GLARGINE 100 UNIT/ML SUBCUT SCH (09:36)
[2017-05-26] MEDS: INSULIN LISPRO 100 UNIT/ML SUBCUT SCH ×4 (09:36→21:18)
[2017-05-26] MEDS: PANTOPRAZOLE 40 MG TABLET PO SCH (09:37)
[2017-05-26] MEDS: LEVOFLOXACIN 750 MG TABLET PO SCH (09:38)
[2017-05-26] MEDS: metOLazone 5 MG TABLET PO SCH (09:38)
[2017-05-26] MEDS: ASCORBIC ACID 500 MG TABLET PO SCH ×2 (09:38→21:18)
[2017-05-26] MEDS: APIXABAN 5 MG TABLET PO SCH ×2 (09:38→21:18)
[2017-05-26] MEDS: POTASSIUM CHLORIDE 20 MEQ TABLET PO SCH ×2 (09:38→09:54)
[2017-05-26] MEDS: ASPIRIN EC 81 MG TABLET PO SCH (09:38)
[2017-05-26] MEDS: GLIMEPIRIDE 4 MG TABLET PO SCH ×2 (09:39→16:40)
[2017-05-26] MEDS: DOCUSATE SODIUM 100 MG CAPSULE PO SCH ×2 (09:39→21:22)
[2017-05-26] MEDS: POLYETHYLENE GLYCOL POWDER 17 GM PACK PO SCH ×2 (09:39→21:22)
[2017-05-26] MEDS: METOPROLOL TARTRATE 100 MG TABLET PO SCH ×2 (09:39→21:18)
[2017-05-26] MEDS: predniSONE 20 MG TABLET PO SCH (09:39)
[2017-05-26] MEDS: FUROSEMIDE 40 MG/4 ML VIAL IV SCH (09:40)
[2017-05-26] MEDS: FUROSEMIDE 80 MG TABLET PO SCH (09:50)
[2017-05-26] MEDS: POTASSIUM CHLORIDE 20 MEQ PACK PO SCH ×2 (10:36→21:18)
--- NOTE | 2017-05-26 11:08 | Cardiology Progress Note ---
Assessment and Plan (1) Anticoagulation adequate Status: Chronic Assessment and plan: SEE PLAN LISTED BELOW Current Visit: Yes (2) Atrial flutter with RVR Status: Resolved Assessment and plan: SEE PLAN LISTED BELOW Current Visit: Yes (3) Elevated LFTs Status: Acute Assessment and plan: SEE PLAN LISTED BELOW Current Visit: Yes (4) Hypertension Status: Chronic Assessment and plan: SEE PLAN LISTED BELOW Current Visit: Yes Qualifiers: Hypertension type: essential hypertension Qualified Code(s): I10 - Essential (primary) hypertension (5) Acute kidney injury Problem details: Most likely due to hypotensive/ischemic ATN, mild with preserved acidification. Continues to improve. eGFR 67cc/min Status: Acute Assessment and plan: SEE PLAN LISTED BELOW Current Visit: Yes (6) Congestive heart failure Status: Acute Assessment and plan: SEE PLAN LISTED BELOW Current Visit: Yes Cardiology - PN: Subj Interval history: Cardiology note No fever. Having less cough. Throat is a little sore. Decreased breath sounds with basilar rhonchi but better air movement regular rhythm no murmur or gallop Abdomen benign No leg edema Telemetry shows steady sinus rhythm Lab data today White count 12.6 hemoglobin 14.0 hematocrit 41.1 Sodium 139 potassium 3.6 chloride 95 CO2 36 BUN 49 creatinine 1.60 Glucose 196 Status post ablation May 18 for atrial flutter Ejection fraction 40-45% with moderate dilated left atrium and mild TR Status post right lung thoracentesis Plan Lasix 40 mg IV twice daily 40 mEq KCl twice daily Zaroxolyn 10 mg every morning Levofloxacin Metoprolol 100 mg twice daily Eliquis 5 mg twice daily BMP in a.m. Exam (Progress Note) - Constitutional Vitals: Period Temp Pulse Resp BP Sys/Sanches Pulse Ox Last 24 Hr 96.0 F-97.7 F 71-86 18-20 98-149/53-88 92-99 Result/EKG - Labs CBC & BMP: 05/26/17 03:06 05/26/17 03:06 Labs: Laboratory Results - last 24 hr 05/25/17 05/25/17 05/25/17 11:42 15:01 19:01 WBC RBC Hgb Hct MCV MCH MCHC RDW Plt Count MPV Neut % (Auto) Lymph % (Auto) [place] % (Auto) Eos % (Auto) Baso % (Auto) Neut # (Auto) Lymph # (Auto) [place] # (Auto) Eos # (Auto) Baso # (Auto) Immature Gran % Nucleated RBC % Immature Gran # Nucleated RBCs # Immature Plt Fraction Sodium Potassium Chloride Carbon Dioxide Anion Gap BUN Creatinine GFR Calculation BUN/Creatinine Ratio Glucose POC Glucose 275 H 281 H 247 H Calculated Osmolality Calcium 05/26/17 05/26/17 05/26/17 03:06 03:06 07:34 WBC 12.6 H RBC 4.37 Hgb 14.0 Hct 41.1 L MCV 94.1 MCH 32 MCHC 34.1 RDW 12.3 Plt Count 186 MPV 11.3 Neut % (Auto) 68.0 Lymph % (Auto) 17.6 L [place] % (Auto) 11.5 Eos % (Auto) 2.4 Baso % (Auto) 0.1 Neut # (Auto) 8.5 H Lymph # (Auto) 2.2 [place] # (Auto) 1.4 H Eos # (Auto) 0.3 Baso # (Auto) 0.0 Immature Gran % 0.4 Nucleated RBC % 0.0 Immature Gran # 0.05 Nucleated RBCs # 0.00 Immature Plt Fraction 0.0 Sodium 139 Potassium 3.6 Chloride 95 L Carbon Dioxide 36 H Anion Gap 11.6 BUN 49 H Creatinine 1.60 H GFR Calculation 60 BUN/Creatinine Ratio 30.00 H Glucose 196 H POC Glucose 259 H Calculated Osmolality 294.5 Calcium 9.5 Quality Measures - Stroke Symptom Onset Unknown: No
--- NOTE | 2017-05-26 14:26 | Hospitalist Progress Note ---
Assessment and Plan (1) Atrial flutter Status: Acute Assessment and plan: He is converted to normal sinus rhythm after ablation by cardiology. He is anticoagulated with Eliquis and also on aspirin Current Visit: Yes Qualifiers: Atrial flutter type: typical Qualified Code(s): I48.3 - Typical atrial flutter (2) Elevated LFTs Status: Acute Assessment and plan: Hepatitis panel negative. Improving with diuresis. Likely secondary to passive congestion of the liver and anasarca. Current Visit: Yes (3) Hyperbilirubinemia Status: Acute Current Visit: Yes (4) Hypertension Status: Chronic Current Visit: Yes Qualifiers: Hypertension type: essential hypertension Qualified Code(s): I10 - Essential (primary) hypertension (5) Atrial flutter with RVR Status: Resolved Assessment and plan: Heart rate controlled. Started on metoprolol. Cardiology consult noted. Ablation performed. Anticoagulated with Eliquis. Current Visit: Yes (6) Diabetes mellitus Status: Chronic Assessment and plan: Hemoglobin A1c 11.3. Patient has not been on medications for several months. Start glyburide and add Lantus. Continue Accu-Cheks and sliding scale insulin. 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 Continues to improve. eGFR 67cc/min Status: Acute Assessment and plan: We will obtain a 24-hour urine to evaluate protein loss Current Visit: Yes (8) Pneumonia Status: Acute Assessment and plan: De-escalate antibiotics to Levaquin 750 p.o. daily. Current Visit: Yes (9) Peripheral edema Status: Acute Assessment and plan: Continue albumin with Lasix and Aldactone. Monitor for improvement. 24-hour urine collection reviewed. No evidence of nephrotic syndrome Current Visit: Yes (10) Pleural effusion Status: Acute Assessment and plan: Continue diuresis with Lasix and Aldactone. Consider thoracentesis if no improvement. Albumin added for improved oncotic pressures. Current Visit: Yes (11) Anasarca Status: Acute Assessment and plan: Continue diuresis with albumin, Lasix, Aldactone. Current Visit: Yes Hospitalist: Subjective Interval history: Patient seen and examined. No acute events overnight. Case discussed with nursing staff. Labs reviewed. Reports continued improvement. Today he has a bit of a sore throat. Will attempt to discontinue nasal cannula oxygen. Lower extremities with less edema. Exam - Constitutional Vitals: Period Temp Pulse Resp BP Sys/Sanches Pulse Ox Last 24 Hr 96.0 F-97.7 F 68-78 18-20 98-153/53-88 92-99 Exam: Constitutional System: No distress. No tremulousness. Head: Normocephalic, atraumatic. Ears, Nose and Throat System: No pain or tenderness. No epistaxis or discharge Eyes System: Pupils equal, round, and reactive. Extraocular muscles intact. Neck: Supple, without adenopathy, No jugular venous distention. No thyromegaly, neck mass, or prior surgery apparent. Respiratory System: Chest decreased breath sounds at the bases with rales. No wheezing. Cardiovascular System: Heart with regular rate and rhythm. No murmur. GI System: Abdomen soft, nontender. Normo active bowel sounds present. Musculoskeletal System: limbs with bilateral pitting pedal edema. Full distal pulses. Normal capillary refill. Anasarca noted Neurological System: No discernable sensory deficit. No aphasia Psychiatric System: Conversation is rational Results - Labs CBC & BMP: 05/26/17 03:06 05/26/17 03:06 Lab Results: I have reviewed the past 24 hour labs Quality Measures - Stroke Symptom Onset Unknown: No
--- NOTE | 2017-05-26 18:15 | Pathology Report from [facility] ---
[facility] [place] : [id number] PATIENT NAME : Og Cota ORDERING DR : BREONNA NOGUERA MD CLINICAL HX: Shortness of breath POST-OP DX: Same SPECIMEN INFO: Fluid,Pleural,ERICK - 650 mls red orange, cloudy CLASS: II CLASS COMMENTS: Marked blood, acute inflammation, reactive mesothelials.CELL BLOCK: Same CLASS LEGEND: CLASS 0 Material inadequate for diagnosis because of (see comment) CLASS I Absence of atypical or abnormal cells CLASS II Atypical Cytology but no evidence of malignancy CLASS III Cytology suggestive of but not conclusive for malignancy CLASS IV Cytology strongly suggestive of malignancy CLASS V Cytology conclusive for malignancy COLLECTED DATE: 05/24/2017 [facility] REPORT DATE: 05/25/2017 ELECTRONICALLY SIGNED BY: Purnima Hernandez III, M.D. 05/25/2017 - 8:44:32 [email or web address]
[2017-05-26] MEDS: ATORVASTATIN 40 MG TABLET PO SCH (21:18)
[2017-05-26] MEDS: TAMSULOSIN 0.4 MG CAPSULE PO SCH (21:18)
[2017-05-27] MEDS: ALBUMIN 25% 25 GM in PREMIX 1 EACH IV SCH ×2 (00:58→09:11)
[2017-05-27] MEDS: ALBUTEROL/IPRATROPIUM 3 ML NEB RESP TX SCH ×4 (01:01→20:45)
[2017-05-27 06:34] LABS: Calcium 9.9 MG/DL (8.5-10.1); Osmolality,Calculated 291.8 MOS/KG (273-304); Potassium 3.9 MMOL/L (3.5-5.1)
[2017-05-27] MEDS: ASCORBIC ACID 500 MG TABLET PO SCH ×2 (09:07→21:19)
[2017-05-27] MEDS: metOLazone 5 MG TABLET PO SCH (09:07)
[2017-05-27] MEDS: GLIMEPIRIDE 4 MG TABLET PO SCH ×2 (09:07→16:15)
[2017-05-27] MEDS: predniSONE 20 MG TABLET PO SCH (09:07)
[2017-05-27] MEDS: POTASSIUM CHLORIDE 20 MEQ PACK PO SCH ×2 (09:07→21:18)
[2017-05-27] MEDS: LEVOFLOXACIN 750 MG TABLET PO SCH (09:07)
[2017-05-27] MEDS: APIXABAN 5 MG TABLET PO SCH ×2 (09:07→21:19)
[2017-05-27] MEDS: ASPIRIN EC 81 MG TABLET PO SCH (09:07)
[2017-05-27] MEDS: DOCUSATE SODIUM 100 MG CAPSULE PO SCH ×2 (09:08→21:19)
[2017-05-27] MEDS: PANTOPRAZOLE 40 MG TABLET PO SCH (09:08)
[2017-05-27] MEDS: INSULIN LISPRO 100 UNIT/ML SUBCUT SCH ×4 (09:08→21:19)
[2017-05-27] MEDS: FUROSEMIDE 80 MG TABLET PO SCH (09:08)
[2017-05-27] MEDS: INSULIN GLARGINE 100 UNIT/ML SUBCUT SCH (09:08)
[2017-05-27] MEDS: METOPROLOL TARTRATE 100 MG TABLET PO SCH ×2 (09:08→21:19)
[2017-05-27] MEDS: POLYETHYLENE GLYCOL POWDER 17 GM PACK PO SCH ×2 (09:09→21:20)
--- NOTE | 2017-05-27 09:23 | Pulmonology Progress Note ---
Pulmonary - PN: Subj Interval history: Mr. Cota is a 57 year old white male came in last week with increasing shortness of breath and have atrial arrhythmias. He apparently was having considerable swelling of his abdomen and legs also. He said he cannot talk or walk anywhere without being short of breath. He says he is feeling better now. He has been monitored and had rapid atrial fibrillation but is doing better now. He does have some mild left ventricular dysfunction. He says he is more comfortable now and not having any chest pain. The patient continues to diurese fairly well and his weight is down. He is ambulating without oxygen and feels much better. His shortness of breath is much better. His CHF has improved nicely. Exam (Progress Note) - Constitutional Vitals: Period Temp Pulse Resp BP Sys/Sanches Pulse Ox Last 24 Hr 96.3 F-97.7 F 68-88 16-20 133-173/76-89 90-99 Exam: General appearance: no acute distress, over weight, he is comfortable sitting up today. His weight looks much better. He is breathing much better. - Head Head exam: Present: normal inspection, normocephalic - Eye Eye exam: Present: EOMI. Absent: scleral icterus Pupils: Present: GAGE - ENT ENT exam: Present: normal exam - Neck Neck exam: Absent: lymphadenopathy, thyromegaly - Respiratory Respiratory exam: Present: He has fairly good breath sounds bilaterally and his lungs are much clearer now. - Cardiovascular Cardiovascular exam: Present: JVD, regular rate and rhythm, systolic murmur (He has a soft murmur). Absent: gallop - GI/Abdominal GI/Abdominal exam: Present: distended, soft. Absent: organomegaly, tenderness - Extremities Exam Extremities exam: Present: His leg swelling has basically resolved. - Neurological Exam Neurological exam: Present: alert, oriented X3, CN II-XII intact - Psychiatric Psychiatric exam: Present: normal affect, normal mood - Skin Skin exam: Present: warm, dry Results - Labs CBC & BMP: 05/26/17 03:06 05/27/17 05:19 Assessment and Plan (1) Congestive heart failure Status: Acute Assessment and plan: The patient's clinical picture suggest congestive heart failure. His pleural fluid is a transudate. He is breathing better and his weight is down. His chest x-ray is improving. Overall his CHF is much better. He can go home from my standpoint. Current Visit: Yes (2) Hypertension Status: Chronic Assessment and plan: His blood pressure looks better now. Current Visit: Yes Qualifiers: Hypertension type: essential hypertension Qualified Code(s): I10 - Essential (primary) hypertension (3) Atrial flutter with RVR Status: Resolved Assessment and plan: His heart rate is much better and he is still in a regular rhythm. Current Visit: Yes (4) Diabetes mellitus Status: Chronic Assessment and plan: The patient apparently has problems with his diabetes. He looks like he has several organs affected. His glucose is 197 this morning. We will stop his steroids. 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 Continues to improve. eGFR 67cc/min Status: Acute Assessment and plan: His creatinine is 1.4 today. Current Visit: Yes
[2017-05-27] MEDS ORDERED: predniSONE 10 MG TABLET PO SCH (09:24)
--- NOTE | 2017-05-27 12:28 | Cardiology Progress Note ---
Assessment and Plan (1) Anticoagulation adequate Status: Chronic Assessment and plan: SEE PLAN LISTED BELOW Current Visit: Yes (2) Atrial flutter with RVR Status: Resolved Assessment and plan: SEE PLAN LISTED BELOW Current Visit: Yes (3) Elevated LFTs Status: Acute Assessment and plan: SEE PLAN LISTED BELOW Current Visit: Yes (4) Hypertension Status: Chronic Assessment and plan: SEE PLAN LISTED BELOW Current Visit: Yes Qualifiers: Hypertension type: essential hypertension Qualified Code(s): I10 - Essential (primary) hypertension (5) Acute kidney injury Problem details: Most likely due to hypotensive/ischemic ATN, mild with preserved acidification. Continues to improve. eGFR 67cc/min Status: Acute Assessment and plan: SEE PLAN LISTED BELOW Current Visit: Yes (6) Congestive heart failure Status: Acute Assessment and plan: SEE PLAN LISTED BELOW Current Visit: Yes Cardiology - PN: Subj Interval history: Cardiology note Status post ablation for atrial flutter May 18 Status post right lung thoracentesis Feels much better. Not using oxygen today. Patient has had significant diuresis. Admission weight 109.3 kg. Weight today 96.9 kg. Telemetry shows steady sinus rhythm. Blood pressure 142/80 in the right arm by me. Decreased breath sounds with scattered rhonchi but better air movement. Regular rhythm no murmur or gallop Abdomen soft benign No leg edema Lab data today Sodium 137 potassium 3.9 chloride 95 CO2 35 BUN 46 creatinine 1.40 glucose 184 Status post ablation May 18 for atrial flutter Ejection fraction 40-45% with moderate dilated left atrium and mild TR Status post right lung thoracentesis CHF/pneumonia improving Plan Continue Eliquis 5 mg twice daily Continue metoprolol 100 mg twice daily Continue levofloxacin and nebs Continue spironolactone 25 mg daily Continue Lasix 80 mg daily Continue metolazone 10 mg daily BMP in a.m. Continue prednisone 10 mg daily Exam (Progress Note) - Constitutional Vitals: Period Temp Pulse Resp BP Sys/Sanches Pulse Ox Last 24 Hr 96.3 F-97.5 F 70-88 16-20 133-173/77-89 90-99 Result/EKG - Labs CBC & BMP: 05/26/17 03:06 05/27/17 05:19 Labs: Laboratory Results - last 24 hr 05/26/17 05/26/17 05/27/17 15:34 21:15 05:19 Sodium 137 Potassium 3.9 Chloride 95 L Carbon Dioxide 35 H Anion Gap 10.9 BUN 46 H Creatinine 1.40 H GFR Calculation 69 BUN/Creatinine Ratio 32.00 H Glucose 225 H POC Glucose 267 H 262 H Calculated Osmolality 291.8 Calcium 9.9 05/27/17 05/27/17 07:43 11:34 Sodium Potassium Chloride Carbon Dioxide Anion Gap BUN Creatinine GFR Calculation BUN/Creatinine Ratio Glucose POC Glucose 197 H 184 H Calculated Osmolality Calcium Quality Measures - Stroke Symptom Onset Unknown: No
--- NOTE | 2017-05-27 18:07 | Hospitalist Progress Note ---
Assessment and Plan (1) Atrial flutter Status: Acute Assessment and plan: He is converted to normal sinus rhythm after ablation by cardiology. He is anticoagulated with Eliquis and also on aspirin Current Visit: Yes Qualifiers: Atrial flutter type: typical Qualified Code(s): I48.3 - Typical atrial flutter (2) Elevated LFTs Status: Acute Assessment and plan: Hepatitis panel negative. Improving with diuresis. Likely secondary to passive congestion of the liver and anasarca. Current Visit: Yes (3) Hyperbilirubinemia Status: Acute Current Visit: Yes (4) Hypertension Status: Chronic Current Visit: Yes Qualifiers: Hypertension type: essential hypertension Qualified Code(s): I10 - Essential (primary) hypertension (5) Atrial flutter with RVR Status: Resolved Assessment and plan: Heart rate controlled. Started on metoprolol. Cardiology consult noted. Ablation performed. Anticoagulated with Eliquis. Current Visit: Yes (6) Diabetes mellitus Status: Chronic Assessment and plan: Hemoglobin A1c 11.3. Patient has not been on medications for several months. Start glyburide and add Lantus. Continue Accu-Cheks and sliding scale insulin. 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 Continues to improve. eGFR 67cc/min Status: Acute Assessment and plan: We will obtain a 24-hour urine to evaluate protein loss Current Visit: Yes (8) Pneumonia Status: Acute Assessment and plan: De-escalate antibiotics to Levaquin 750 p.o. daily. Current Visit: Yes (9) Peripheral edema Status: Acute Assessment and plan: Continue albumin with Lasix and Aldactone. Monitor for improvement. 24-hour urine collection reviewed. No evidence of nephrotic syndrome Improved with albumin and Lasix and Zaroxolyn. Current Visit: Yes (10) Pleural effusion Status: Acute Assessment and plan: Continue diuresis with Lasix and Aldactone. Consider thoracentesis if no improvement. Albumin added for improved oncotic pressures. Current Visit: Yes (11) Anasarca Status: Resolved Assessment and plan: Continue diuresis with albumin, Lasix, Aldactone. Current Visit: Yes Hospitalist: Subjective Interval history: Patient seen and examined. No acute events overnight. Case discussed with nursing staff. Labs reviewed. He is improving rapidly at this point. He has lost significant amounts of weight and his lower extremity edema has improved drastically. He will likely be ready for discharge home tomorrow with continued diuretic therapy as an outpatient as well as anticoagulation and a full course of antibiotics to be completed. Exam - Constitutional Vitals: Period Temp Pulse Resp BP Sys/Sanches Pulse Ox Last 24 Hr 96.3 F-97.5 F 70-88 16-20 136-173/77-89 90-99 Exam: Constitutional System: No distress. No tremulousness. Head: Normocephalic, atraumatic. Ears, Nose and Throat System: No pain or tenderness. No epistaxis or discharge Eyes System: Pupils equal, round, and reactive. Extraocular muscles intact. Neck: Supple, without adenopathy, No jugular venous distention. No thyromegaly, neck mass, or prior surgery apparent. Respiratory System: Chest decreased breath sounds at the bases with rales. No wheezing. Cardiovascular System: Heart with regular rate and rhythm. No murmur. GI System: Abdomen soft, nontender. Normo active bowel sounds present. Musculoskeletal System: limbs with no pitting pedal edema. Full distal pulses. Normal capillary refill. Anasarca resolved Neurological System: No discernable sensory deficit. No aphasia Psychiatric System: Conversation is rational Results - Labs CBC & BMP: 05/26/17 03:06 05/27/17 05:19 Lab Results: I have reviewed the past 24 hour labs Quality Measures - Stroke Symptom Onset Unknown: No
[2017-05-27] MEDS: TAMSULOSIN 0.4 MG CAPSULE PO SCH (21:19)
[2017-05-27] MEDS: ATORVASTATIN 40 MG TABLET PO SCH (21:19)
[2017-05-28] MEDS: ALBUTEROL/IPRATROPIUM 3 ML NEB RESP TX SCH ×2 (01:09→07:09)
[2017-05-28 04:14] LABS: Basophils % 0.2 % (0.0-0.8); Eosinophils # 0.2 10*3/uL (0.0-0.87); Eosinophils % 1.2 % (0.00-10.9); Hematocrit 43.8 VOL% (42.0-52.0); Hemoglobin 15.3 GM/DL (14.0-18.0); Immature Granulocytes % 0.6 %; Immature Granulocytes Absolute 0.07 #; Lymphocytes # 1.5 10*3/uL (1.4-4.0); Lymphocytes % 12.3 % (21.2-54.2); Mean Corpuscular HGB Conc 34.9 GM/DL (32-36); Mean Corpuscular Hemoglobin 32 PG (27-34); Mean Corpuscular Volume 90.9 FL (87-102); Mean Platelet Volume 10.9 FL (9.6-12.0); Monocytes # 0.9 10*3/uL (0.11-0.8); Monocytes % 7.2 % (1.7-12.7); Neutrophils # 9.8 10*3/uL (1.4-7.4); Neutrophils % 78.5 % (38.7-73.9); Platelet Count 195 T/CUMM (130-400); Red Blood Count 4.82 MC/CUMM (3.8-5.5); Red Cell Distribution Width 11.9 % (9.3-17.3); White Blood Count 12.4 T/CUMM (4-12)
[2017-05-28 04:37] LABS: Magnesium 2.3 MG/DL (1.8-2.4)
[2017-05-28 07:34] VITALS: BP 144/84
[2017-05-28] MEDS: INSULIN LISPRO 100 UNIT/ML SUBCUT SCH (08:34)
[2017-05-28] MEDS: LEVOFLOXACIN 750 MG TABLET PO SCH (08:35)
[2017-05-28] MEDS: metOLazone 5 MG TABLET PO SCH (08:35)
[2017-05-28] MEDS: GLIMEPIRIDE 4 MG TABLET PO SCH (08:35)
[2017-05-28] MEDS: FUROSEMIDE 80 MG TABLET PO SCH (08:35)
[2017-05-28] MEDS: ASPIRIN EC 81 MG TABLET PO SCH (08:35)
[2017-05-28] MEDS: ASCORBIC ACID 500 MG TABLET PO SCH (08:36)
[2017-05-28] MEDS: POTASSIUM CHLORIDE 20 MEQ PACK PO SCH (08:36)
[2017-05-28] MEDS: PANTOPRAZOLE 40 MG TABLET PO SCH (08:36)
[2017-05-28] MEDS: APIXABAN 5 MG TABLET PO SCH (08:36)
[2017-05-28] MEDS: METOPROLOL TARTRATE 100 MG TABLET PO SCH (08:36)
[2017-05-28] MEDS: INSULIN GLARGINE 100 UNIT/ML SUBCUT SCH (08:36)
[2017-05-28] MEDS: DOCUSATE SODIUM 100 MG CAPSULE PO SCH (08:37)
[2017-05-28] MEDS: POLYETHYLENE GLYCOL POWDER 17 GM PACK PO SCH (08:37)
--- NOTE | 2017-05-28 11:16 | Discharge Summary ---
Hospital Course - Hospital Course Hospital Course: 57-year-old WM, PMHx hypertension, diabetes, medical noncompliance. Admitted with shortness of breath, found to have typical atrial flutter with RVR, difficult rate control with mild fluid overload. Elevated LFTs, PENELOPE/CKD which has improved. He has improved with diuresis, med management, and is status post atrial flutter ablation. Echo: LVEF 40-45%, mild KVNG, mild TR/MR EKG: SR/ST 90s-100 05/18- ablation of typical atrial flutter (cavotricuspid isthmus linear lesion) -Stable sinus rhythm since the ablation. -CHF, SOB. His shortness of breath improved with IV Lasix, but the bilateral pleural effusions persist. Renal, pulmonary etiology is being worked up. -Continue anticoagulation with Eliquis. He did not have an JIMMY thrombus on AQUILINO prior to the ablation -Plan to continue anticoagulation for a month, if no recurrence of the arrhythmia. -Continue aspirin He was seen in consultation by cardiology as well as pulmonary. His fluid overload was difficult to manage as he had a low albumin and had anasarca. He was started on albumin infusion as well as Lasix Aldactone and Zaroxolyn. He had a good response to diuretic therapy and has reached maximal benefit from this inpatient hospitalization. At one point his shortness of breath was thought to be related to pneumonia as the patient spiked a fever. He was started on Levaquin and has improved. He is given a prescription for Levaquin to complete a 7 day course. Overall his rate has been controlled. His weight is down and his swelling has resolved. He is being discharged home today with multiple new prescriptions for rate control with beta blockers, anticoagulation with Eliquis, diuretics with Zaroxolyn and Lasix. He will need to follow-up with cardiology as an outpatient as well as Dr. Wiggins his primary care physician. - Time spent with patient Time with patient DS: Greater than 30 minutes (Total discharge time for this patient, including [id number]-[id number] time, clinical documentation, medication reconciliation, and discharge planning was 45 minutes.) Diagnosis - Discharge Diagnosis (1) Atrial flutter Status: Resolved (2) Elevated LFTs Status: Resolved (3) Hyperbilirubinemia Status: Resolved (4) Hypertension Status: Chronic (5) Atrial flutter with RVR Status: Resolved (6) Diabetes mellitus Status: Chronic (7) Acute kidney injury Status: Resolved (8) Pneumonia Status: Resolved (9) Peripheral edema Status: Resolved (10) Pleural effusion Status: Resolved (11) Anasarca Status: Resolved Discharge Plan - Discharge Data Disposition: Disch To Home/Self Care Condition at Discharge: Stable Discharge Diet: advance to your usual diet, diabetic diet Activity: resume usual activities as tolerated Hygiene: no restrictions Weight Bearing at Discharge: full weight bearing Driving: no restrictions Contact your physician if you experience:: fever over 101, Shortness of breath, pain uncontrolled by pain medications - Discharge Medications New Atorvastatin [Lipitor] 40 mg PO BEDTIME #30 tablet Glimepiride [Amaryl] 4 mg PO BID W/MEALS #60 tablet Insulin Glargine [Lantus] 25 unit SUBCUT DAILY #1 vial Levofloxacin Tab [Levaquin Tab] 750 mg PO DAILY #3 tablet Metoprolol Tartrate Tab [Lopressor Tab] 100 mg PO BID #60 tablet Potassium Chloride Cap/Tab [K Dur] 20 meq PO BID #60 tablet Tamsulosin [Flomax] 0.4 mg PO BEDTIME #30 capsule Apixaban [Eliquis] 5 mg PO BID #60 tablet Ascorbic Acid Tab [Vitamin C Tab] 1,000 mg PO BID tablet Aspirin EC Tab 81 mg PO DAILY tablet Furosemide Tab [Lasix Tab] 80 mg PO DAILY #30 tablet metOLazone [Zaroxolyn] 5 mg PO DAILY #30 tablet - Follow Up or Referral Follow Up: Aniyah Wiggins [Physician] - Merlin Segura MD [Physician] - - Forms/Instructions Exam - Constitutional Vitals: Period Temp Pulse Resp BP Sys/Sanches Pulse Ox Last 24 Hr 96.4 F-97.4 F 69-77 18-20 140-148/73-87 92-99 Discharge Results Procedures and tests throughout hospitalization: Pending Orders 05/23/17 14:00 AFB Culture/Smears Routine Fungal Culture w/ Prep Routine 05/23/17 14:08 Cytology Request Routine 05/28/17 04:00 XR chest 2V IN AM 05/29/17 04:00 BMP w/ Mg [Basic Metabolic Panel w/Mg] IN AM Comp Blood Count Auto Diff IN AM 05/30/17 04:00 BMP w/ Mg [Basic Metabolic Panel w/Mg] IN AM Comp Blood Count Auto Diff IN AM Labs on day of discharge: Labs from last 24 hours 05/28/17 05/28/17 05/28/17 07:19 03:36 03:36 WBC 12.4 H RBC 4.82 Hgb 15.3 Hct 43.8 MCV 90.9 MCH 32 MCHC 34.9 RDW 11.9 Plt Count 195 MPV 10.9 Neut % (Auto) 78.5 H Lymph % (Auto) 12.3 L [place] % (Auto) 7.2 Eos % (Auto) 1.2 Baso % (Auto) 0.2 Neut # (Auto) 9.8 H Lymph # (Auto) 1.5 [place] # (Auto) 0.9 H Eos # (Auto) 0.2 Baso # (Auto) 0.0 Immature Gran % 0.6 Nucleated RBC % 0.0 Immature Gran # 0.07 Nucleated RBCs # 0.00 Immature Plt Fraction 0.0 Sodium 136 Potassium 4.0 Chloride 94 L Carbon Dioxide 31 Anion Gap 15.0 BUN 48 H Creatinine 1.50 H GFR Calculation 63 BUN/Creatinine Ratio 32.00 H Glucose 224 H POC Glucose 186 H Calculated Osmolality 291.0 Calcium 10.0 Magnesium 2.3 05/28/17 05/27/17 05/27/17 03:36 20:54 16:11 WBC RBC Hgb Hct MCV MCH MCHC RDW Plt Count MPV Neut % (Auto) Lymph % (Auto) [place] % (Auto) Eos % (Auto) Baso % (Auto) Neut # (Auto) Lymph # (Auto) [place] # (Auto) Eos # (Auto) Baso # (Auto) Immature Gran % Nucleated RBC % Immature Gran # Nucleated RBCs # Immature Plt Fraction Sodium 136 Potassium 4.0 Chloride 94 L Carbon Dioxide 31 Anion Gap 15.0 BUN 48 H Creatinine 1.50 H GFR Calculation 63 BUN/Creatinine Ratio 32.00 H Glucose 219 H POC Glucose 236 H 310 H Calculated Osmolality 291.0 Calcium 10.0 Magnesium 05/27/17 11:34 WBC RBC Hgb Hct MCV MCH MCHC RDW Plt Count MPV Neut % (Auto) Lymph % (Auto) [place] % (Auto) Eos % (Auto) Baso % (Auto) Neut # (Auto) Lymph # (Auto) [place] # (Auto) Eos # (Auto) Baso # (Auto) Immature Gran % Nucleated RBC % Immature Gran # Nucleated RBCs # Immature Plt Fraction Sodium Potassium Chloride Carbon Dioxide Anion Gap BUN Creatinine GFR Calculation BUN/Creatinine Ratio Glucose POC Glucose 184 H Calculated Osmolality Calcium Magnesium DS: Provider Date of admission: 05/14/17 11:22 Primary care physician: . No PCP Attending physician on admission: Nithin Smith MD Consults: 05/14/17 11:22 Consult to Physician [CONS] Routine Comment: aflutter with RVR Consulting Provider: Cardiology - [facility] Consulting Provider Notified: Yes When should Consulting Provider be notified: Now When should Consulting Provider be notified: Now Person Notified: DR. Tania OWENS Date Notified: 05/14/17 Time Notified: 15:15 Consult Notification Comment: ORDERS GIVEN 05/14/17 11:25 Consult to Diabetes Center, Educator [CONS] Routine Reason for [place]: Diabetes Education 05/14/17 15:17 Consult to Physician [CONS] Routine Comment: Consulting Provider: 05/16/17 17:34 Consult to Physician [CONS] Routine Comment: Sleep Medicine, Dr. Li Consulting Provider: When should Consulting Provider be notified: In am Consult to Specialist Group: Pulmonology 05/16/17 17:36 Consult to Physician [CONS] Routine Comment: Consulting Provider: Sal Estrella Consult to Specialist Group: Nephrology When should Consulting Provider be notified: In am Person Notified: Sunshine Date Notified: 05/17/17 Time Notified: 08:55 05/17/17 08:32 Consult to Sleep Center [CONS] Routine Reason for Sleep Center: Sleep Center Physician 05/20/17 18:37 Consult to Physician [CONS] Routine Comment: Please evaluate for lung infiltrates and effusions Consulting Provider: Aquilino Ruff When should Consulting Provider be notified: In am Consult to Specialist Group: Pulmonology When should Consulting Provider be notified: Now Person Notified: Dr Ruff Date Notified: 05/21/17 Time Notified: 15:59 Discharging clinician: Nithin Smith MD Expected date of discharge: 05/28/17
--- NOTE | 2017-05-28 12:32 | XRay Report ---
History: Pneumonia and CHF Date: 05/28/2017 Study: Chest x-ray PA and lateral Comparison exam: May 26, 2017 There is stable cardiomegaly. The mediastinal contour is unchanged. The pulmonary vasculature is not engorged. There is patchy and strandy atelectasis/infiltrate in the lower lobes as before, with mild interval improvement. There is continued mild bilateral pleural effusion. Osseous structures are similar. Impression: Continued bilateral lower lobe pneumonia with some interval improvement PROCEDURE INTERPRETED AT [facility] DEPARTMENT OF RADIOLOGY Final Report Signed by: Dr. Ruth Perdue
--- NOTE | 2017-05-28 13:17 | Cardiology Progress Note ---
Assessment and Plan (1) Anticoagulation adequate Status: Chronic Assessment and plan: SEE PLAN LISTED BELOW (2) Hypertension Status: Chronic Assessment and plan: SEE PLAN LISTED BELOW Qualifiers: Hypertension type: essential hypertension Qualified Code(s): I10 - Essential (primary) hypertension (3) Congestive heart failure Status: Acute Assessment and plan: SEE PLAN LISTED BELOW Cardiology - PN: Subj Interval history: Cardiology note No temperature. Breathing is better. Telemetry shows sinus rhythm with rare PAC Blood pressure 136/80 O2 sat 99 on room air Regular rhythm no murmur or gallop Decreased breath sounds with basilar rhonchi but better air movement. No leg edema Lab data today Sodium 136 potassium 4.0 chloride 94 CO2 31 BUN 40 creatinine 1.50 glucose 224 magnesium 2.3 Impression Status post ablation for atrial flutter May 18, 2017 Status post right lung thoracentesis CHF/pneumonia improving Plan Stop Zaroxolyn Office visit with Dr. Segura scheduled Medications as outlined Agree with discharge Exam (Progress Note) - Constitutional Vitals: Period Temp Pulse Resp BP Sys/Sanches Pulse Ox Last 24 Hr 96.4 F-97.3 F 69-77 18-20 140-148/73-87 92-99 Result/EKG - Labs CBC & BMP: 05/28/17 03:36 05/28/17 03:36 Labs: Laboratory Results - last 24 hr 05/27/17 05/27/17 05/28/17 16:11 20:54 03:36 WBC RBC Hgb Hct MCV MCH MCHC RDW Plt Count MPV Neut % (Auto) Lymph % (Auto) [place] % (Auto) Eos % (Auto) Baso % (Auto) Neut # (Auto) Lymph # (Auto) [place] # (Auto) Eos # (Auto) Baso # (Auto) Immature Gran % Nucleated RBC % Immature Gran # Nucleated RBCs # Immature Plt Fraction Sodium 136 Potassium 4.0 Chloride 94 L Carbon Dioxide 31 Anion Gap 15.0 BUN 48 H Creatinine 1.50 H GFR Calculation 63 BUN/Creatinine Ratio 32.00 H Glucose 219 H POC Glucose 310 H 236 H Calculated Osmolality 291.0 Calcium 10.0 Magnesium 05/28/17 05/28/17 05/28/17 03:36 03:36 07:19 WBC 12.4 H RBC 4.82 Hgb 15.3 Hct 43.8 MCV 90.9 MCH 32 MCHC 34.9 RDW 11.9 Plt Count 195 MPV 10.9 Neut % (Auto) 78.5 H Lymph % (Auto) 12.3 L [place] % (Auto) 7.2 Eos % (Auto) 1.2 Baso % (Auto) 0.2 Neut # (Auto) 9.8 H Lymph # (Auto) 1.5 [place] # (Auto) 0.9 H Eos # (Auto) 0.2 Baso # (Auto) 0.0 Immature Gran % 0.6 Nucleated RBC % 0.0 Immature Gran # 0.07 Nucleated RBCs # 0.00 Immature Plt Fraction 0.0 Sodium 136 Potassium 4.0 Chloride 94 L Carbon Dioxide 31 Anion Gap 15.0 BUN 48 H Creatinine 1.50 H GFR Calculation 63 BUN/Creatinine Ratio 32.00 H Glucose 224 H POC Glucose 186 H Calculated Osmolality 291.0 Calcium 10.0 Magnesium 2.3 Quality Measures - Stroke Symptom Onset Unknown: No
== END 2017-05-28 12:48 | disposition home or self-care (01) | DRG 273 ==
LOC: N.ED 09:02 → SUATTDRO 11:22 → N.EDINP 11:22 → N.CC 13:25 → N.TELEN 05-15 11:11
PROVIDERS: ADMIT Family Medicine; ATTEND Family Medicine

== ENCOUNTER 2017-06-13 13:39 | Inpatient (IN) ==
[2017-06-13 14:28] LABS: INR 1.1; PT Patient Result 11.6 SECS; Partial Thromboplastin Time 28.5 SECS (0-40)
[2017-06-13 14:33] LABS: Basophils % 0.3 % (0.0-0.8); Eosinophils # 0.2 10*3/uL (0.0-0.87); Eosinophils % 1.6 % (0.00-10.9); Hematocrit 43.7 VOL% (42.0-52.0); Immature Granulocytes % 0.5 %; Immature Granulocytes Absolute 0.08 #; Lymphocytes # 2.6 10*3/uL (1.4-4.0); Mean Corpuscular Hemoglobin 32 PG (27-34); Mean Corpuscular Volume 84.9 FL (87-102); Mean Platelet Volume 12.5 FL (9.6-12.0); Monocytes # 0.9 10*3/uL (0.11-0.8); Neutrophils # 11.5 10*3/uL (1.4-7.4); Neutrophils % 74.6 % (38.7-73.9); Platelet Count 198 T/CUMM (130-400); Red Blood Count 5.15 MC/CUMM (3.8-5.5); Red Cell Distribution Width 11.1 % (9.3-17.3); White Blood Count 15.5 T/CUMM (4-12)
[2017-06-13 14:36] LABS: Alanine Aminotransferase 38 U/L (16-61); Albumin 4.2 G/DL (3.4-5.0); Alkaline Phosphatase 67 U/L (45-117); Aspartate Amino Transferase 32 U/L (0-37); Blood Urea Nitrogen 45 MG/DL (7-18); Calcium 9.6 MG/DL (8.5-10.1); Osmolality,Calculated 295.8 MOS/KG (273-304); Potassium 4.8 MMOL/L (3.5-5.1); Sodium 130 MMOL/L (136-145); Total Protein 7.7 G/DL (6.4-8.3); Troponin I Only < 0.015 NG/ML (0.00-0.045)
[2017-06-13 14:38] LABS: Hemoglobin 16.6 GM/DL (14.0-18.0)
[2017-06-13 14:48] LABS: Glucose 535 MG/DL (74-106)
[2017-06-13] MEDS ORDERED: INSULIN REGULAR 100 UNIT/ML IV STA (15:48)
[2017-06-13] MEDS ORDERED: BISACODYL 5 MG TABLET PO PRN (16:02)
[2017-06-13] MEDS ORDERED: ZALEPLON 5 MG CAPSULE PO PRN (16:02)
[2017-06-13] MEDS ORDERED: MAGNESIUM SULF RIDER 2 GM in PREMIX 1 EACH IV PRN (16:02)
[2017-06-13] MEDS ORDERED: MAGNESIUM HYDROXIDE SUSP 30 ML UDCUP PO PRN (16:02)
[2017-06-13] MEDS ORDERED: GLUCAGON 1 MG VIAL IM PRN (16:02)
[2017-06-13] MEDS ORDERED: DEXTROSE 50% 25 GM/50 ML VIAL IV PRN (16:02)
[2017-06-13] MEDS ORDERED: ACETAMINOPHEN 325 MG TABLET PO PRN (16:02)
[2017-06-13] MEDS ORDERED: POTASSIUM CHLORIDE 20 MEQ TABLET PO PRN (16:02)
[2017-06-13] MEDS ORDERED: NITROGLYCERIN SL 0.4 MG TABLET SL PRN (16:02)
[2017-06-13] MEDS ORDERED: ONDANSETRON 4 MG/2 ML VIAL IV PRN (16:02)
[2017-06-13] MEDS ORDERED: SODIUM CHLORIDE 0.9% 500 ML IV ONE (16:29)
[2017-06-13] MEDS ORDERED: SODIUM CHLORIDE 0.45% 1,000 ML IV SCH (16:30)
[2017-06-13] MEDS ORDERED: SODIUM CHLORIDE 0.9% 1,000 ML IV STA (17:27)
[2017-06-13] MEDS ORDERED: INSULIN REGULAR 100 UNIT/ML ONE (17:52)
[2017-06-13] MEDS: INSULIN REGULAR 100 UNIT/ML SUBCUT SCH ×2 (18:46→21:37)
[2017-06-13] MEDS: GLIMEPIRIDE 4 MG TABLET PO SCH (19:14)
[2017-06-13] MEDS: INSULIN ASPART PROTAMINE/ASPART 70/30 100 UNIT/ML SUBCUT SCH (19:14)
[2017-06-13] MEDS ORDERED: TAMSULOSIN 0.4 MG CAPSULE PO SCH (21:00)
[2017-06-13] MEDS ORDERED: METOPROLOL TARTRATE 50 MG TABLET PO SCH (21:00)
[2017-06-13] MEDS ORDERED: ATORVASTATIN 20 MG TABLET PO SCH (21:00)
[2017-06-13] MEDS ORDERED: ATORVASTATIN 40 MG TABLET PO SCH (21:00)
[2017-06-13] MEDS: APIXABAN 5 MG TABLET PO SCH (21:49)
[2017-06-13] MEDS: METOPROLOL TARTRATE 100 MG TABLET PO SCH (21:53)
[2017-06-13] MEDS: FAMOTIDINE 20 MG TABLET PO SCH (21:53)
[2017-06-13] MEDS: SODIUM CHLORIDE 0.9% 1,000 ML IV SCH ×2 (21:53→21:54)
[2017-06-13] MEDS: ASCORBIC ACID 500 MG TABLET PO SCH (21:53)
[2017-06-13 23:43] LABS: Apearance,Urine CLEAR (Clear); Bilirubin,Urine Negative (Negative); Blood, Urine Negative (Negative); Glucose,Urine (UA) >=500 mg/dL (Negative); Hyaline Casts,Urine 6 /LPF (0-3); Ketones,Urine Negative (Negative); Mucus,Urine Occasional /LPF (Occasional); Nitrite,Urine Negative (Negative); Protein,Urine Negative; Urine Color Yellow (Yellow); Urine Specific Gravity 1.008 (1.001-1.035); Urine Urobilinogen < 2.0 EU/DL (0.2-1.0); WBC,Urine <1 /HPF (0-6)
[2017-06-14] MEDS: SODIUM CHLORIDE 0.9% 1,000 ML IV SCH ×2 (04:11→10:55)
[2017-06-14 05:51] LABS: INR 1.1; PT Patient Result 11.4 SECS
[2017-06-14 06:12] LABS: Calcium 8.9 MG/DL (8.5-10.1); Magnesium 1.7 MG/DL (1.8-2.4); Osmolality,Calculated 284.5 MOS/KG (273-304); Potassium 3.4 MMOL/L (3.5-5.1)
[2017-06-14 06:14] LABS: VLDL CHOLESTEROL 55.6 MG/DL
[2017-06-14 06:15] LABS: Basophils % 0.3 % (0.0-0.8); Eosinophils # 0.5 10*3/uL (0.0-0.87); Eosinophils % 4.1 % (0.00-10.9); Immature Granulocytes % 0.4 %; Immature Granulocytes Absolute 0.04 #; Lymphocytes # 3.4 10*3/uL (1.4-4.0); Lymphocytes % 29.8 % (21.2-54.2); Mean Corpuscular HGB Conc 37.8 GM/DL (32-36); Mean Corpuscular Hemoglobin 32 PG (27-34); Mean Corpuscular Volume 85.2 FL (87-102); Mean Platelet Volume 12.2 FL (9.6-12.0); Monocytes # 0.9 10*3/uL (0.11-0.8); Monocytes % 7.6 % (1.7-12.7); Neutrophils # 6.5 10*3/uL (1.4-7.4); Neutrophils % 57.8 % (38.7-73.9); Platelet Count 161 T/CUMM (130-400); Red Blood Count 4.66 MC/CUMM (3.8-5.5); Red Cell Distribution Width 11.3 % (9.3-17.3); Risk Ratio 2.8; White Blood Count 11.2 T/CUMM (4-12)
[2017-06-14 06:17] LABS: Hemoglobin 14.7 GM/DL (14.0-18.0)
[2017-06-14 06:18] LABS: Hematocrit 39.7 VOL% (42.0-52.0)
[2017-06-14 06:36] LABS: Eosinophils 8 % (0-10); Giant Platelets Few; Hypochromasia Slight; Lymphocytes 21 % (20-55); Nucleated Red Blood Cells 1 (0-5); Platelet Estimate Normal; Segmented Neutrophils 64 % (50-85); Total Cells Counted 100
[2017-06-14] MEDS ORDERED: ASPIRIN EC 81 MG TABLET PO SCH (09:00)
[2017-06-14] MEDS ORDERED: LEVOFLOXACIN 750 MG TABLET PO SCH (09:00)
[2017-06-14] MEDS ORDERED: POTASSIUM CHLORIDE 20 MEQ TABLET PO ONE (10:23)
[2017-06-14] MEDS: ASCORBIC ACID 500 MG TABLET PO SCH (10:56)
[2017-06-14] MEDS: APIXABAN 5 MG TABLET PO SCH (10:57)
[2017-06-14] MEDS: METOPROLOL TARTRATE 100 MG TABLET PO SCH (10:57)
[2017-06-14] MEDS: FAMOTIDINE 20 MG TABLET PO SCH (10:57)
[2017-06-14] MEDS: INSULIN ASPART PROTAMINE/ASPART 70/30 100 UNIT/ML SUBCUT SCH ×2 (10:58→19:02)
[2017-06-14] MEDS: INSULIN REGULAR 100 UNIT/ML SUBCUT SCH ×3 (10:58→19:04)
[2017-06-14] MEDS: GLIMEPIRIDE 4 MG TABLET PO SCH ×2 (10:58→18:51)
[2017-06-14] MEDS ORDERED: DILTIAZEM 30 MG TABLET PO SCH (15:00)
[2017-06-14 18:32] VITALS: BP 106/59
== END 2017-06-14 19:07 | disposition home or self-care (01) | DRG 309 ==
LOC: N.ED 13:39 → N.EDINP 16:01 → N.TELES 18:15
PROVIDERS: ADMIT Internal Medicine; ATTEND Internal Medicine